=== PATIENT | female | born 1935 | race Caucasian/White ===

== ENCOUNTER 2017-09-27 04:41 | Inpatient (IN) | payer MEDICARE ==
[2017-09-27] MEDS ORDERED: NS 0.9% 1000 ML* 1,000 ML IV ONE (04:50)
[2017-09-27] MEDS ORDERED: Gabapentin CAP(*) 300 MG PO ONE (04:52)
[2017-09-27] MEDS ORDERED: methylPREDNISolone 125 MG* 2 ML VIAL IV ONE (04:52)
[2017-09-27] MEDS ORDERED: Morphine INJ* 4 MG/ML 1 ML CARPUJECT IV ONE (04:52)
[2017-09-27] MEDS ORDERED: Morphine VIAL* 4 MG/ML VIAL (1 ml vial) IV ONE (05:14)
[2017-09-27 05:32] LABS: ABS Basophils 0 10^3/ul (0-0.2); ABS Eosinophils 0.1 10^3/ul (0-0.6); ABS Lymphocytes 2.7 10^3/ul (1.0-4.8); ABS Monocytes 0.9 10^3/ul (0-0.8); ABS Neutrophils 6.6 10^3/ul (1.5-7.7); ABS Nucleated RBC 0 10^3/ul; Eosinophil % 0.9 % (0-6); Hematocrit 41 % (35-47); Hemoglobin 14.6 g/dl (12.0-16.0); Lymphocyte % 26.3 % (25-47); Mean Corpuscular HGB Conc 36 g/dl (31-36); Mean Corpuscular Hemoglobin 36 pg (27-31); Mean Corpuscular Volume 101 fL (80-97); Mean Platelet Volume 8.7 um3 (7.4-10.4); Nucleated Red Blood Cells % 0.1; Platelet Count 224 10^3/ul (150-450); Red Blood Count 4.09 10^6/ul (4.00-5.40); Red Cell Distribution Width 15 % (10.5-15); White Blood Count 10.4 10^3/ul (3.5-10.8)
[2017-09-27] MEDS: Albuterol/Ipratropium NEB.SOL* Albuterol 2.5 MG/Ipratropium 0.5 MG 3 ML INH ONE ×2 (05:35→05:38)
[2017-09-27 05:39] LABS: INR 0.91 (0.77-1.02)
[2017-09-27] MEDS ORDERED: Albuterol/Ipratropium NEB.SOL* Albuterol 2.5 MG/Ipratropium 0.5 MG 3 ML ONE (05:40)
[2017-09-27 05:49] LABS: EGFR Non-African American 67.5 (>60)
[2017-09-27] MEDS ORDERED: Levofloxacin 750 MG IVPREMIX(* 750 MG/150 ML BAG IVPB ONE (06:13)
[2017-09-27] MEDS ORDERED: Iohexol 350* (CONTRAST) 500 ML MDV IV ONE (06:39)
--- NOTE | 2017-09-27 07:28 | ED ---
Benjie Azar Gabriel, scribed for Jose Pierre MD on 09/27/17 at 0515 . Complex/Multi-Sys Presentation - HPI Summary HPI Summary: This patient is a 81 year old F BIBA to [facility] with a chief complaint of whole body pain due to singles that began yesterday. Pt has had shingle since the second week of July, she has a rx for gabapentin but does not use it. The patient rates the pain 9/10 in severity. Patient reports pain with inspiration and SOB. Patient denies fever. Pt is on prednisone and doxycycline. - History Of Current Complaint Chief Complaint: EDShortnessOfBreath Time Seen by Provider: 09/27/17 04:42 Hx Obtained From: Patient Onset/Duration: Lasting Days, Still Present Timing: Constant Severity Currently: Severe Severity Initially: Severe Associated Signs And Symptoms: Positive: Other - whole body pain due to singles that - Allergies/Home Medications Allergies/Adverse Reactions: Allergies Allergy/AdvReac Type Severity Reaction Status Date / Time MS Penicillins [Penicillins] Allergy Hives Verified 08/18/16 12:28 Home Medications: Home Medications Furosemide TAB* [Lasix TAB*] 40 mg PO DAILY 09/27/17 [History Confirmed 09/27/17 ] predniSONE TAB* [Deltasone 10 MG TAB*] 10 mg PO DAILY 09/27/17 [History Confirmed 09/27/17] PMH/Surg Hx/FS Hx/Imm Hx Endocrine/Hematology History: Reports: Hx Thyroid Disease Denies: Hx Diabetes Cardiovascular History: Reports: Hx Aneurysm, Hx Hypercholesterolemia, Hx Hypertension Denies: Hx Congestive Heart Failure - ? 1999 per pt, no edema, denies s/s receiving visipaque, Hx Pacemaker/ICD Respiratory History: Reports: Hx Chronic Obstructive Pulmonary Disease (COPD), Other Respiratory Problems/Disorders - occassional,exertional sob Denies: Hx Asthma GI History: Reports: Other GI Disorders History: Denies: Hx Kidney Stones, Hx Renal Disease Sensory History: Denies: Hx Hearing Aid Psychiatric History: Reports: Hx Anxiety, Hx Panic Disorder - A LITTLE - Surgical History Surgery Procedure, Year, and Place: APPY,HYSTERECTOMY,TUBAL LIGATION, LAP SANDHYA, EYELID PARTIAL REMOVAL,throat benign polyp, aortic aneurysm-CLEARED 1.5 PER [facility] SCANNED INTO OTHER OR PROCEDURES. HEMORROIDECTOMY-BILATERAL CATARACTS Infectious Disease History: No Infectious Disease History: Denies: Traveled Outside the [place] in Last 30 Days - Family History Known Family History: Negative: Cardiac Disease, Hypertension, Diabetes - Social History Alcohol Use: None Substance Use Type: Reports: None Hx Tobacco Use: Yes Smoking Status (MU): Never Smoked Tobacco Review of Systems Positive: Shortness Of Breath, Other - pain with inspiration Neurological: Other - whole body pain due to singles All Other Systems Reviewed And Are Negative: Yes Physical Exam - Summary Physical Exam Summary: Appearance: Well appearing, appears uncomfortable, mild distress Skin: healed but hyper pigmented are in a dermatomal distribution in the left thoracic area and flank, there is a healed zoster in the left thoracic chest Head/face: normal Eyes: EOMI, ANAND ENT: normal Neck: supple, non-tender Respiratory: diminished breath sounds with expiration and expiration, splinting respirations, tachypnea Cardiovascular: RRR, pulses symmetrical Abdomen: non-tender, soft Bowel Sounds: present Musculoskeletal: normal, strength/ROM intact Neuro: normal, sensory motor intact, A&Ox3 Triage Information Reviewed: Yes Vital Signs On Initial Exam: Initial Vitals Temp Pulse Resp BP Pulse Ox 98.3 F 71 22 185/128 96 09/27/17 04:52 09/27/17 04:52 09/27/17 04:52 09/27/17 04:52 09/27/17 04:52 Vital Signs Reviewed: Yes Diagnostics - Vital Signs Vital Signs Temp Pulse Resp BP Pulse Ox 09/27/17 04:52 98.3 F 71 22 185/128 96 - Laboratory Lab Results: Lab Results 09/27/17 09/27/17 09/27/17 Range/Units 05:20 05:20 05:20 WBC 10.4 (3.5-10.8) 10^3/ul RBC 4.09 (4.00-5.40) 10^6/ul Hgb 14.6 (12.0-16.0) g/dl Hct 41 (35-47) % MCV 101 H (80-97) fL MCH 36 H (27-31) pg MCHC 36 (31-36) g/dl RDW 15 (10.5-15) % Plt Count 224 (150-450) 10^3/ul MPV 8.7 (7.4-10.4) um3 Neut % (Auto) 63.6 (38-83) % Lymph % (Auto) 26.3 (25-47) % Stanly % (Auto) 8.8 H (0-7) % Eos % (Auto) 0.9 (0-6) % Baso % (Auto) 0.4 (0-2) % Absolute Neuts (auto) 6.6 (1.5-7.7) 10^3/ul Absolute Lymphs (auto) 2.7 (1.0-4.8) 10^3/ul Absolute Monos (auto) 0.9 H (0-0.8) 10^3/ul Absolute Eos (auto) 0.1 (0-0.6) 10^3/ul Absolute Basos (auto) 0 (0-0.2) 10^3/ul Absolute Nucleated RBC 0 10^3/ul Nucleated RBC % 0.1 INR (Anticoag Therapy) 0.91 (0.77-1.02) D-Dimer, Quantitative 610 H (Less Than 230) ng/mL Sodium 140 (135-145) mmol/L Potassium 3.4 L (3.5-5.0) mmol/L Chloride 101 (101-111) mmol/L Carbon Dioxide 31 (22-32) mmol/L Anion Gap 8 (2-11) mmol/L BUN 17 (6-24) mg/dL Creatinine 0.81 (0.51-0.95) mg/dL Est GFR ( Amer) 86.8 (>60) Est GFR (Non-Af Amer) 67.5 (>60) BUN/Creatinine Ratio 21.0 H (8-20) Glucose 92 (70-100) mg/dL Lactic Acid (0.5-2.0) mmol/L Calcium 9.8 (8.6-10.3) mg/dL Total Bilirubin 0.60 (0.2-1.0) mg/dL AST 15 (13-39) U/L ALT 11 (7-52) U/L Alkaline Phosphatase 54 (34-104) U/L Troponin I 0.00 (<0.04) ng/mL C-Reactive Protein 1.07 (< 5.00) mg/L B-Natriuretic Peptide ( - 100) pg/mL Total Protein 6.8 (6.4-8.9) g/dL Albumin 4.1 (3.2-5.2) g/dL Globulin 2.7 (2-4) g/dL Albumin/Globulin Ratio 1.5 (1-3) 09/27/17 09/27/17 Range/Units 05:20 05:20 WBC (3.5-10.8) 10^3/ul RBC (4.00-5.40) 10^6/ul Hgb (12.0-16.0) g/dl Hct (35-47) % MCV (80-97) fL MCH (27-31) pg MCHC (31-36) g/dl RDW (10.5-15) % Plt Count (150-450) 10^3/ul MPV (7.4-10.4) um3 Neut % (Auto) (38-83) % Lymph % (Auto) (25-47) % Stanly % (Auto) (0-7) % Eos % (Auto) (0-6) % Baso % (Auto) (0-2) % Absolute Neuts (auto) (1.5-7.7) 10^3/ul Absolute Lymphs (auto) (1.0-4.8) 10^3/ul Absolute Monos (auto) (0-0.8) 10^3/ul Absolute Eos (auto) (0-0.6) 10^3/ul Absolute Basos (auto) (0-0.2) 10^3/ul Absolute Nucleated RBC 10^3/ul Nucleated RBC % INR (Anticoag Therapy) (0.77-1.02) D-Dimer, Quantitative (Less Than 230) ng/mL Sodium (135-145) mmol/L Potassium (3.5-5.0) mmol/L Chloride (101-111) mmol/L Carbon Dioxide (22-32) mmol/L Anion Gap (2-11) mmol/L BUN (6-24) mg/dL Creatinine (0.51-0.95) mg/dL Est GFR ( Amer) (>60) Est GFR (Non-Af Amer) (>60) BUN/Creatinine Ratio (8-20) Glucose (70-100) mg/dL Lactic Acid 1.0 (0.5-2.0) mmol/L Calcium (8.6-10.3) mg/dL Total Bilirubin (0.2-1.0) mg/dL AST (13-39) U/L ALT (7-52) U/L Alkaline Phosphatase (34-104) U/L Troponin I (<0.04) ng/mL C-Reactive Protein (< 5.00) mg/L B-Natriuretic Peptide 22 ( - 100) pg/mL Total Protein (6.4-8.9) g/dL Albumin (3.2-5.2) g/dL Globulin (2-4) g/dL Albumin/Globulin Ratio (1-3) Result Diagrams: 09/27/17 05:20 09/27/17 05:20 Lab Statement: Any lab studies that have been ordered have been reviewed, and results considered in the medical decision making process. - Radiology CXR Radiology Interpretation Completed By: ED Physician - Nodule vs infiltrate vs round atelectasis. Pending official report - EKG 0454 Cardiac Rate: NL EKG Rhythm: Sinus Rhythm - at 70 BPM EKG Interpretation: nml axis, nml intervals, nml ST Re-Evaluation - Re-Evaluation First Eval Re-Evaluation Time: 06:15 Change: Improved Comment: Pt is feeling better after neb. Complex Multi-Symp Course/Dx Course Of Treatment: Patient with history of COPD now requiring oxygen. O2 sats 91% on 2 L on arrival. Increased work of breathing. She improved with breathing treatments, steroids and oxygen. X-ray shows atelectasis versus infiltrate. D-dimer is elevated. CT PE protocol is pending at time of disposition. Discussed the case with the hospitalist after the patient was given steroids, breathing treatments and IV Levaquin. They will accept the patient and admit to the telemetry service. - Diagnoses Differential Diagnoses/HQI/PQRI: Other - COPD exacerbation, CHF, cardiac event, pain related to zoster, pneumonia, pneumothorax Provider Diagnoses: COPD exacerbation, Left sided chest pain - Physician Notifications Discussed Care Of Patient With: Wilmar Landry Time Discussed With Above Provider: 06:30 Instructed by Provider To: Admit As Inpatient Discharge - Sign-Out/Discharge Documenting (check all that apply): Discharge/Admit/Transfer - admitted - Discharge Plan Condition: Guarded Disposition: ADMITTED TO [facility] Referrals: hCuy Chappell MD [Primary Care Provider] - - Billing Disposition and Condition Condition: GUARDED Disposition: Admitted to [facility] The documentation as recorded by the Benjie cordero Gabriel accurately reflects the service I personally performed and the decisions made by me, Jose Pierre MD.
--- NOTE | 2017-09-27 08:17 | RAD ---
INDICATION: Chest pain. COMPARISON: Comparison is made with a prior chest x-ray study from December 30, 2015. TECHNIQUE: A portable view of the chest was obtained. FINDINGS: The heart is within normal limits in size. There is a faint round density which projects above the right lung base measuring 1.6 cm in size. The lungs are underinflated otherwise clear. No pleural effusion is seen. IMPRESSION: POSSIBLE PULMONARY NODULE VERSUS INFILTRATE AT THE RIGHT LUNG BASE. RECOMMEND A CT OF THE CHEST. THE PATIENT IS CURRENTLY SCHEDULED FOR CT ANGIOGRAM OF THE CHEST FOR FURTHER EVALUATION.
[2017-09-27] MEDS ORDERED: Potassium Chlor TAB* 20 MEQ TAB.ER PO ONE (08:24)
[2017-09-27] MEDS ORDERED: Albuterol/Ipratropium NEB.SOL* Albuterol 2.5 MG/Ipratropium 0.5 MG 3 ML INH PRN (08:27)
[2017-09-27] MEDS ORDERED: PROCHLORPERAZINE INJ 5 MG/ML 2 ML VIAL IV PRN (08:29)
--- NOTE | 2017-09-27 09:30 | RAD ---
INDICATION: Short of breath. Abdominal pain. COMPARISON: CTA abdomen and pelvis February 15, 2015; MRI lumbar spine August 19, 2016 TECHNIQUE: Axial source images were obtained from the thoracic inlet to the symphysis pubis following the intravenous administration of [address] angiographic technique was utilized Coronal and sagittal reconstructed images were acquired. CHEST FINDINGS: Neck/thyroid: The visualized neck to include the thyroid appear normal. Chest wall: There are no acute abnormalities of the bony thorax or chest wall. There is no supraclavicular, infraclavicular, or axillary lymphadenopathy. Lungs : There are no pulmonary parenchymal masses or infiltrates. There is coarsening of interstitium compatible with mild chronic change. There are no endobronchial lesions. Cardiomediastinal structures: The heart is normal in size. There is no pericardial effusion. There is no evidence of aortic aneurysm or dissection. There is no CT evidence of acute pulmonary embolic disease. There is no mediastinal or hilar adenopathy. The esophagus appears normal. Pleura : There are no pleural-based masses or effusions. ABDOMINAL/PELVIC FINDINGS: Liver: The liver is normal in size. There are no masses. There is no ductal dilatation. Gallbladder: Cholecystectomy. Spleen: The spleen is normal in size. There are no masses. Pancreas: There is no evidence of pancreatic mass or ductal dilatation. Adrenal glands: There is no evidence of adrenal mass. Kidneys: The kidneys are normal in size and position. There are prompt nephrograms and there is prompt excretion bilaterally. There are no renal parenchymal masses. There is no evidence of nephrolithiasis. Adenopathy: There is no evidence of adenopathy by size criteria. Fluid collections: There are no free or localized fluid collections. Vessels:There is an aortobiiliac stent graft. There is no evidence of interval enlargement of the manzanita aneurysm sac which is nearly the size of the stent itself, unchanged. There are no findings to suggest acute dissection, leak, or visceral branch occlusion. There are atherosclerotic changes of the iliac vessels which are tortuous GI tract: There are no acute CT bowel findings. There is no obstruction. The stomach and small bowel appear normal. The lower GI tract is normal. The cecum, ileocecal valve, and terminal ileum appear normal. Pelvic organs: There is hysterectomy. There is no adnexal mass Bladder: There are no bladder masses. Abdominal and pelvic soft tissues: The extraperitoneal abdominal and pelvic soft tissues appear normal.. Osseous structures: There is a 70% compression deformity of T12 mildly progressive from the MRI from August 19, 2016. IMPRESSION: 1. No CT evidence of acute pulmonary embolic disease. Lungs clear. 2. No CT abnormalities of the endovascular stent graft. No acute CT abnormalities of the abdomen or pelvis. 3. Chronic T12 compression deformity
[2017-09-27] MEDS: Furosemide TAB* 40 MG PO SCH (12:01)
[2017-09-27] MEDS: Atorvastatin* 20 MG TAB PO SCH (12:02)
[2017-09-27] MEDS: Gabapentin CAP(*) 300 MG PO SCH ×2 (12:02→20:35)
[2017-09-27] MEDS: Aspirin EC TAB* 325 MG PO SCH (12:02)
--- NOTE | 2017-09-27 12:19 | HP ---
CC: Dr. Chappell * HISTORY AND PHYSICAL: DATE OF ADMISSION: 09/27/17 TIME OF EVALUATION: 8:10 a.m. PRIMARY CARE PROVIDER: Dr. Chappell. CHIEF COMPLAINT: Pain. HISTORY OF PRESENT ILLNESS: Mrs. Saucedo is an 81-year-old lady with a past medical history of hyperlipidemia, hypertension, hypothyroidism, anxiety, COPD, diverticulosis, AAA, status post repair, who presented to the emergency room with complaints that pain from her left shoulder, left side chest, and whole abdomen. The patient is a very poor historian and is difficult to pinpoint exactly when the pain started. She states that in July, she had an episode of shingles. She was prescribed gabapentin but did not use it. She states that the lesions dried up but the pain continues from the left side of her back going around to under her breast and up to her left shoulder. She states that the pain now is 5/10 but this pain mixes with pain in her chest and also pain going down to her whole abdomen. She cannot characterize the nature of the pain and she thinks that the pain in her abdomen is a separate issue from the pain in her chest and shoulder. She denies nausea, vomiting, diarrhea, fever, any change in her cough, and sputum production. She states that the pain including her abdominal pain is worse with deep inspiration, so for this reason the patient states that she is not taking a deep breath. In the emergency room, the patient was noted to have an oxygen saturation of 91 % on 3 L on arrival with increased work of breathing. She received IV steroids , breathing treatments, IV Levaquin and she states her breathing is better but the pain is unchanged. PAST MEDICAL HISTORY: 1. Hyperlipidemia. 2. Hypertension. 3. Hypothyroidism. 4. Anxiety. 5. COPD, on home O2, 2 L at night. 6. Diverticulosis. 7. Status post appendectomy. 8. Status post hysterectomy. 9. Status post cholecystectomy. 10. Status post cataract surgery. 11. Reported surgery for AAA repair at [facility] in 2013. MEDICATION LIST: 1. Aspirin 325 mg p.o. daily. 2. Atorvastatin 10 mg p.o. daily. 3. Furosemide 40 mg p.o. daily. 4. Prednisone 10 mg p.o. daily. ALLERGIES: With PENICILLIN. She patient experiences hives. FAMILY HISTORY: Father had a history of COPD. SOCIAL HISTORY: The patient is a smoker since she was 10 years old. She occasionally has a glass of wine. Surrogate decision maker is her daughter, Jasmyne Hartman, phone number is [phone]. REVIEW OF SYSTEMS: A 14-point review of systems was performed but is limited due to the patient is being a poor historian but as far as I can obtain, all the positives and negatives present in the HPI. PHYSICAL EXAMINATION GENERAL: Patient is an elderly lady, lying in the ED stretcher. She appears to be uncomfortable secondary to pain. VITAL SIGNS: Temperature 98.3, heart rate is 72, respiratory rate is 27, oxygen saturation is 90% on 2 L, blood pressure is 146/70. HEENT: Pupils are equal. Moist mucous membranes. CHEST: Breath sounds bilaterally with no added sounds. The patient has a healing rash under her left breast stretching all the way across to her left back. There are no active lesions at this time, mostly just scars from her episode of zoster in July. CVS: Normal S1, S2. Regular rate and rhythm. ABDOMEN: Obese, soft with hypogastric and right lower quadrant tenderness but no guarding, no rebound. Bowel sounds are present. EXTREMITIES: No edema. NEUROLOGIC: She is alert and oriented x3. Able to move all 4 extremities. LABORATORY AND IMAGING DATA: Patient had a CBC that showed WBC of 10.4, hemoglobin 14.6, hematocrit 41, MCV 101, MCH 36, platelets 224 with 63% neutrophils. INR 0.9. D-dimer 610. Chemistry showed sodium 140, potassium 3.4 , chloride 101, bicarbonate 31, BUN 17, creatinine 0.81, glucose 92, lactic acid 1, calcium 9.8. LFTs are normal. Troponin is 0. Chest x-ray was not officially read yet but to my read it shows no acute pulmonary disease. I do not see any free air under the diaphragm. She had a right lower lobe nodule that I think was present on her prior chest x-ray from 2016 but it is hard to define because she had wires overlying it. CTA of the chest was performed but the images are not yet loaded in this system. EKG done on 09/27/17 at 4:54 a.m. showed sinus rhythm at 70 beats per minute with no significant changes when compared to her prior EKG from 2016. ASSESSMENT AND PLAN: Mrs. Saucedo is an 81-year-old lady with past medical history of hyperlipidemia, hypertension, hypothyroidism, anxiety, chronic obstructive pulmonary disease, diverticulosis, status post abdominal aortic aneurysm repair, who presented to the emergency room with complaints of chest, shoulder, and diffuse abdominal pain. 1. Chest pain, rule out acute coronary syndrome, likely secondary to zoster. 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 The patient received gabapentin in the emergency room and she states that her chest pain is not bad at this time. She will be admitted to the telemetry floor and we are going to continue gabapentin to try and obtain pain control. On the other hand, the patient is a smoker, has history of peripheral vascular disease. The EKG showed no acute ischemic changes. Her first troponin is negative. She will be monitored on telemetry and we are going to check serial troponins. If she rules out acute coronary syndrome, consideration could be given for stress test as outpatient. I am going to check a transthoracic echocardiogram to look for any wall motion abnormalities. 2. Abdominal pain, that appears to be her major complaint at this time. She has hypogastric and right lower quadrant pain on my physical examination. She has a history of cholecystectomy and appendectomy already. I am going to chest an abdomen x-ray, but her chest x-ray did not show any free air under the diaphragm. The patient will also have a CTA of the abdomen and pelvis consider her history of abdominal aortic aneurysm, status post repair in 2013 and we are going to obtain records from [facility]. She denies any nausea, vomiting, or diarrhea. We are going to check urinalysis. Although she denies urinary complaints, she does have some hypogastric tenderness. Straight catheterization was ordered to obtain the urine sample. She will be maintained on pain management with morphine at this point. 3. Chronic obstructive pulmonary disease exacerbation. I believe the patient cannot take a deep breath due to her abdominal pain. Initially, in the emergency room, she had some wheezing and she states that her breathing is easier now after receiving treatment. We will continue her on levofloxacin, steroids, bronchodilators, and supplemental oxygen. 4. Hyperlipidemia. We will continue atorvastatin 5. Hypothyroidism. The patient is not on any medication at this time. I am going to check TSH level. 6. DVT prophylaxis. The patient has a score of 3 on the DVT Prophylaxis Risk Assessment Guide and she will be started on subcutaneous heparin. 7. Prior records show that the patient had a do not resuscitate and do not intubate in place. She states that she is not sure at this time. We will continue conservations, but at this point, the patient is a full code. TIME SPENT: Approximately 55 minutes were spent with patient interview, medical records review, physical examination to complete this admission; more than half of this time was spent [id number] with the patient in coordination of care. [id number]/[facility] #: [id number] JHONNY
[2017-09-27] MEDS: Heparin VIAL(*) 5000 UNITS/ML VIAL (FIVE THOUSAND) SUBCUT SCH ×2 (14:50→20:35)
[2017-09-27 16:25] LABS: Urine Appearance Clear; Urine Blood Negative (Negative); Urine Color Colorless; Urine Ketones Negative (Negative); Urine Protein Negative (Negative); Urine Urobilinogen Negative (Negative)
[2017-09-27] MEDS: methylPREDNISolone SOD 40 MG* 1 ML VIAL IV SCH (17:20)
[2017-09-27] MEDS ORDERED: Sodium Phosphate ADULT ENEMA* 118 ml bottle PR PRN (17:35)
[2017-09-27] MEDS: Morphine VIAL* 4 MG/ML VIAL (1 ml vial) IV PRN (20:34)
[2017-09-27] MEDS: Polyethylene Glycol 3350* 17 GM PACKET PO SCH (20:35)
[2017-09-27] MEDS: Docusate CAP* 100 MG PO SCH (20:35)
[2017-09-28] MEDS: Heparin VIAL(*) 5000 UNITS/ML VIAL (FIVE THOUSAND) SUBCUT SCH ×3 (05:24→21:23)
[2017-09-28 06:10] LABS: ABS Basophils 0 10^3/ul (0-0.2); ABS Eosinophils 0 10^3/ul (0-0.6); ABS Lymphocytes 1.3 10^3/ul (1.0-4.8); ABS Monocytes 0.4 10^3/ul (0-0.8); ABS Neutrophils 4.5 10^3/ul (1.5-7.7); ABS Nucleated RBC 0 10^3/ul; Eosinophil % 0 % (0-6); Hematocrit 40 % (35-47); Hemoglobin 14.2 g/dl (12.0-16.0); Lymphocyte % 20.7 % (25-47); Mean Corpuscular HGB Conc 35 g/dl (31-36); Mean Corpuscular Hemoglobin 36 pg (27-31); Mean Corpuscular Volume 101 fL (80-97); Mean Platelet Volume 8.6 um3 (7.4-10.4); Nucleated Red Blood Cells % 0; Platelet Count 223 10^3/ul (150-450); Red Blood Count 3.99 10^6/ul (4.00-5.40); Red Cell Distribution Width 15 % (10.5-15); White Blood Count 6.2 10^3/ul (3.5-10.8)
[2017-09-28 06:31] LABS: EGFR Non-African American 64.8 (>60)
[2017-09-28] MEDS ORDERED: Pneumococcal *Vac Polyvalent 0.5 ML VIAL IM ONE (09:00)
[2017-09-28] MEDS ORDERED: Levofloxacin 750 MG IVPREMIX(* 750 MG/150 ML BAG IVPB SCH (09:00)
[2017-09-28] MEDS: Docusate CAP* 100 MG PO SCH ×2 (09:24→21:17)
[2017-09-28] MEDS: Atorvastatin* 20 MG TAB PO SCH (09:24)
[2017-09-28] MEDS: Gabapentin CAP(*) 100 MG PO SCH ×2 (09:24→21:17)
[2017-09-28] MEDS: Furosemide TAB* 40 MG PO SCH (09:24)
[2017-09-28] MEDS: Aspirin EC TAB* 325 MG PO SCH (09:24)
[2017-09-28] MEDS: Polyethylene Glycol 3350* 17 GM PACKET PO SCH ×2 (09:25→21:16)
[2017-09-28] MEDS: methylPREDNISolone SOD 40 MG* 1 ML VIAL IV SCH ×2 (09:31→17:38)
[2017-09-28] MEDS: Levofloxacin 250 MG IVPREMX(*) 250 MG/50 ML BAG IVPB SCH (09:31)
[2017-09-28] MEDS: Magnesium Hydroxide LIQ* 30 ML UDC PO PRN ×2 (09:40→21:16)
--- NOTE | 2017-09-28 13:59 | PN ---
Subjective Date of Service: 09/28/17 Interval History: HOSPITALIST PROGRESS NOTE Patient seen and examined at bedside. Care reviewed and d/w Michelle Velásquez RN. She feels miserable. States her belly is "full" and she cannot breathe. Hurts all over, could not sleep last night. Last BM was >10 days ago because her son was visiting. She took a laxative prior to his visit and states her BM was very hard, pellet-like, and she did not want to take any laxative until he left. Declining enema now because she's "embarrassed I'll poop my pants". Family History: Unchanged from Admission Social History: Unchanged from Admission Past Medical History: Unchanged from Admission Objective Active Medications: Acetaminophen (Tylenol Tab*) 650 mg PO Q6H PRN PRN Reason: pain/fever Albuterol/Ipratropium (Duoneb (Albuterol 2.5 Mg/Ipratropium 0.5 Mg)) 1 neb INH Q4H PRN PRN Reason: SOB/WHEEZING Last Admin: 09/27/17 20:44 Dose: 1 neb Aspirin (Ecotrin Ec Tab*) 325 mg PO DAILY [facility] Last Admin: 09/28/17 09:24 Dose: 325 mg Atorvastatin Calcium (Lipitor*) 20 mg PO DAILY [facility] Last Admin: 09/28/17 09:24 Dose: 20 mg Docusate Sodium (Colace Cap*) 100 mg PO BID [facility] Last Admin: 09/28/17 09:24 Dose: 100 mg Furosemide (Lasix Tab*) 40 mg PO DAILY [facility] Last Admin: 09/28/17 09:24 Dose: 40 mg Gabapentin (Neurontin Cap(*)) 100 mg PO BID [facility] Last Admin: 09/28/17 09:24 Dose: 100 mg Heparin Sodium (Porcine) (Heparin Vial(*)) 5,000 units SUBCUT Q8HR [facility] Last Admin: 09/28/17 05:24 Dose: 5,000 units Levofloxacin/Dextrose (Levaquin 250 Mg Ivpremx(*)) 250 mg in 50 mls @ 50 mls/ hr IVPB Q24H [facility] Last Admin: 09/28/17 09:31 Dose: 50 mls/hr Magnesium Hydroxide (Milk Of Magnesia Liq*) 30 ml PO BID PRN PRN Reason: CONSTIPATION Last Admin: 09/28/17 09:40 Dose: 30 ml Methylprednisolone Sodium Succinate (Solu-Medrol 40 Mg) 40 mg IV BID@0900,1700 [facility] Last Admin: 09/28/17 09:31 Dose: 40 mg Morphine Sulfate (Morphine Vial*) 4 mg IV Q3H PRN PRN Reason: SEVERE PAIN Polyethylene Glycol/Electrolytes (Miralax*) 17 gm PO 0800,2100 [facility] Last Admin: 09/28/17 09:25 Dose: 17 gm Prochlorperazine Edisylate (Compazine Inj*) 5 mg IV Q6H PRN PRN Reason: NAUSEA/VOMITING Sodium Biphosphate/Sodium Phosphate (Fleet Enema*) 1 bottle [place] DAILY PRN PRN Reason: CONSTIPATION Vital Signs - 8 hr 09/28/17 09/28/17 09/28/17 07:34 08:00 09:24 Temperature 97.9 F Pulse Rate 58 Respiratory 16 20 20 Rate Blood Pressure 130/60 (mmHg) O2 Sat by Pulse 90 Oximetry 09/28/17 09/28/17 09/28/17 11:25 11:30 11:45 Temperature 98.0 F Pulse Rate 82 Respiratory 20 18 Rate Blood Pressure 180/79 148/62 (mmHg) O2 Sat by Pulse 89 90 Oximetry Oxygen Devices in Use Now: Nasal Cannula Appearance: Elderly lady sitting up in a chair in moderate distress secondary to pain. Eyes: No Scleral Icterus Ears/Nose/Mouth/Throat: Mucous Membranes Moist Neck: Trachea Midline Respiratory: Symmetrical Chest Expansion and Respiratory Effort, - - BS+ bilaterally diminished, scattered wheezes Cardiovascular: RRR - Normal S1 and S2 Abdominal: - - Soft, mild diffuse tenderness, mild distention, BS+ Neurological: Alert and Oriented x 3, NL Muscle Strength and Tone Result Diagrams: 09/28/17 05:57 09/28/17 05:57 Assess/Plan/Problems-Billing Assessment: Mrs Saucedo is an 81yo F with PMH of HLD, HTN, hypothyroidism, anxiety, COPD on home O2 at night, AAA s/p repair, herpes zoster, diverticulosis, s/p cholecystectomy and appendectomy, who presented to ED with c/o chest, back, and abdominal pain, found to have severe constipation. - Patient Problems (1) Chest pain Comment: - Has post herpetic pain - continue Gabapentin. - Serial troponins were negative and EKG showed no acute ischemic changes. - CTA negative for PE/aortic aneurysm/dissection. - Continue Aspirin and Atorvastatin. Beta-blockers contraindicated due to her severe COPD. - May benefit of stress test when more stable, probably as outpatient. (2) V-tach Comment: - Patient had 10 beats of Vtach, asymptomatic, while sleeping. - Replete potassium and check magnesium. - Would avoid beta-blockers due to her COPD. - Check echo. - Continue to monitor. (3) Abdominal pain Comment: - CTA was negative for dissection, no acute abnormalities of the abd/ pelvis were seen. - Suspect her pain is secondary to constipation. Her last BM was >10 days ago and described as hard pellets. Her son was visiting and she did not want to have a BM with him in the house. On a laxative regimen now, declining enemas. She understands she probably has hard stool in her rectum and may require enemas or even manual disimpaction, but she wants to wait a little longer to see if laxatives will work. (4) COPD exacerbation Comment: - Her abdominal discomfort also limits her inspiratory effort. - Continue steroids, bronchodilators, and Levofloxacin. (5) AAA (abdominal aortic aneurysm) Comment: - Records from [facility] reviewed - patient had an infrarenal AAA measuring 6.2cm and underwent endovascular (endograft) repair with a modular bifurcated prosthesis in 2014. (6) HLD (hyperlipidemia) Comment: - Continue Atorvastatin. (7) DVT prophylaxis Comment: - SQ heparin. (8) Full code status Status and Disposition: Inpatient. Daughter (Jada Hartman) called and I left a message requesting a call back.
[2017-09-28] MEDS: Morphine VIAL* 4 MG/ML VIAL (1 ml vial) IV PRN ×2 (14:19→22:53)
--- NOTE | 2017-09-28 17:03 | ECHO ---
Patient: JOHNATHON GUARDADO [facility] Rec#: [id number] : 1935 Date: 09/28/2017 Age: 81y Height: 142.2 cm / 56.0 in Weight: 67.1 kg / 147.9 lbs Sex: F BSA: 1.6 Room#: [facility] Admit Date#: 09/27/2017 Type: Inpatient Referring: Meenakshi Fernandez MD Reading: Ankit Borrero MD Radio Electronics Officer: Daija Perdomo RN RDCS CC: Chuy Chappell MD Transthoracic Echocardiogram Indication: Chest pain, V. tach BP: 148/62 HR: 72 Rhythm: NSR Findings History: HTN, HLD, hypothyroidism, COPD, smoker, AAA repair, recent herpes zoster Technical Comments: The study is technically limited due to poor parasternal windows. The study is technically limited due to patient body habitus. The study is technically limited due to the patient's history of COPD. The study is technically limited due to the patient's smoking history. Completed at 1630. Left Ventricle: The left ventricular chamber size is normal. Mild concentric left ventricular hypertrophy is observed. Global left ventricular wall motion and contractility are within normal limits. The left ventricle appears hyperdynamic. The estimated ejection fraction is greater than 65%. There is an E to A reversal in the mitral valve flow pattern suggestive of diastolic dysfunction. Left Atrium: The left atrial chamber size is normal. Right Ventricle: The right ventricle wall thickness is moderately increased. The right ventricular cavity size is normal. The right ventricular global systolic function is normal. Right Atrium: The right atrial cavity size is normal. Aortic Valve: The aortic valve structure is not well visualized. The aortic valve leaflets are mildly thickened. There is a trace of aortic regurgitation. There is no evidence of aortic stenosis. Mitral Valve: The mitral valve leaflets are mildly thickened. There is no evidence of mitral regurgitation. There is no evidence of mitral stenosis. Tricuspid Valve: The tricuspid valve structure is not well visualized. There is trace tricuspid regurgitation. Unable to estimate the right ventricular systolic pressure. There is no tricuspid stenosis. Pulmonic Valve: The pulmonic valve structure is not well visualized. Pericardium: There is no significant pericardial effusion. A pericardial fat pad is visualized. Aorta: The ascending aorta is not well visualized. The aortic arch is not well visualized. There is no dilation of the aortic root. Pulmonary Artery: The main pulmonary artery is not well visualized. Venous: The inferior vena cava appears normal in size. There is a greater than 50% respiratory change in the inferior vena cava dimension. Conclusions The study is technically limited due to poor parasternal windows, patient body habitus, and dur to the patient's history of COPD. Limited comments with reliable accuracy can be made. Mild concentric left ventricular hypertrophy is observed. Global left ventricular wall motion and contractility are within normal limits. The left ventricle appears hyperdynamic. The estimated ejection fraction is greater than 65%. From limited available views, there is no significant valvular disease: There is trace tricuspid regurgitation. There is a trace of aortic regurgitation. No reports of prior studies are offered for comparison. Measurements Name Value Normal Range RVDdMajor (2D) 3.1 cm (2.2 - 4.4) RVAW (2D) 1.2 cm (0.2 - 0.5) RAd ISD 4CH 4.1 cm (3.4 - 4.9) RA (A4C)W 3.7 cm (2.9 - 4.6) IVSd (2D) 1.2 cm (0.6 - 1) LVPWd (2D) 1.1 cm (0.6 - 1) LVIDd (2D) 4 cm (3.6 - 5.4) Aortic Annulus 2.1 cm (1.4 - 2.6) Ao root diameter (2D) 2.8 cm (2.1 - 3.5) LAd ISD 4CH 4.5 cm (2.9 - 5.3) LA ISD 4CH W 3.2 cm (2.5 - 4.5) Name Value Normal Range LA ESV SP 4CH (A/L) 30 ml - LA ESV SP 2CH (A/L) 48 ml - LA ESV BP (A/L) 40 ml - LA ESV BP (A/L) index 25.7 ml/m2 - LA ESV SP 4CH (MOD) 29 ml - LA ESV SP 2CH (MOD) 45 ml - Name Value Normal Range MV E-wave Vmax 0.72 m/sec - MV deceleration time 349 msec - MV A-wave Vmax 0.99 m/sec - MV E:A ratio 0.73 ratio - LV septal e' Vmax 0.07 m/sec - LV lateral e' Vmax 0.06 m/sec - LV E:e' septal ratio 10.3 ratio - LV E:e' lateral ratio 12 ratio - Name Value Normal Range AV Vmax 1.9 m/sec - AV VTI 35.5 cm - AV peak gradient 14.8 mmHg - AV mean gradient 8 mmHg - LVOT Vmax 1.3 m/sec - LVOT VTI 26.3 cm - LVOT peak gradient 6.5 mmHg - LVOT mean gradient 3.5 mmHg - Name Value Normal Range IVC diameter 1.8 cm - Name Value Normal Range PV Vmax 0.77 m/sec -
[2017-09-28] MEDS ORDERED: Magnesium CITRATE* 300 ML BTL PO PRN (17:05)
[2017-09-29] MEDS ORDERED: HYDROmorphone INJ* 2 MG/ML CARPUJECT SYRINGE IV SLOW PU ONE ×2 (03:42)
[2017-09-29] MEDS ORDERED: Melatonin 3 MG TAB PO PRN (03:43)
[2017-09-29] MEDS: Heparin VIAL(*) 5000 UNITS/ML VIAL (FIVE THOUSAND) SUBCUT SCH ×3 (05:29→20:23)
[2017-09-29] MEDS: Acetaminophen TAB* 325 MG PO PRN ×2 (05:29→22:30)
[2017-09-29] MEDS: Polyethylene Glycol 3350* 17 GM PACKET PO SCH ×2 (09:42→20:22)
[2017-09-29] MEDS: Levofloxacin 250 MG IVPREMX(*) 250 MG/50 ML BAG IVPB SCH (09:43)
[2017-09-29] MEDS: Aspirin EC TAB* 325 MG PO SCH (09:43)
[2017-09-29] MEDS: Docusate CAP* 100 MG PO SCH ×2 (09:43→20:24)
[2017-09-29] MEDS: Atorvastatin* 20 MG TAB PO SCH (09:43)
[2017-09-29] MEDS: Gabapentin CAP(*) 100 MG PO SCH ×2 (09:43→20:24)
[2017-09-29] MEDS: Furosemide TAB* 40 MG PO SCH ×2 (09:44→09:54)
[2017-09-29] MEDS: methylPREDNISolone SOD 40 MG* 1 ML VIAL IV SCH ×2 (09:47→17:22)
[2017-09-29] MEDS: Morphine VIAL* 4 MG/ML VIAL (1 ml vial) IV PRN ×2 (14:51→21:59)
--- NOTE | 2017-09-29 14:51 | PN ---
Subjective Date of Service: 09/29/17 Interval History: HOSPITALIST PROGRESS NOTE Patient seen and examined at bedside. Care reviewed and d/w Dhara Qiu RN. She feels better today. Had many BMs overnight and abdominal pain is improved. Issue now is her breathing. Still has some dyspnea, not yet back at baseline. Family History: Unchanged from Admission Social History: Unchanged from Admission Past Medical History: Unchanged from Admission Objective Active Medications: Acetaminophen (Tylenol Tab*) 650 mg PO Q6H PRN PRN Reason: pain/fever Last Admin: 09/29/17 05:29 Dose: 650 mg Albuterol/Ipratropium (Duoneb (Albuterol 2.5 Mg/Ipratropium 0.5 Mg)) 1 neb INH Q4H PRN PRN Reason: SOB/WHEEZING Last Admin: 09/27/17 20:44 Dose: 1 neb Aspirin (Ecotrin Ec Tab*) 325 mg PO DAILY [facility] Last Admin: 09/29/17 09:43 Dose: 325 mg Atorvastatin Calcium (Lipitor*) 20 mg PO DAILY [facility] Last Admin: 09/29/17 09:43 Dose: 20 mg Docusate Sodium (Colace Cap*) 100 mg PO BID [facility] Last Admin: 09/29/17 09:43 Dose: Not Given Furosemide (Lasix Tab*) 40 mg PO DAILY [facility] Last Admin: 09/29/17 09:54 Dose: 40 mg Gabapentin (Neurontin Cap(*)) 100 mg PO BID [facility] Last Admin: 09/29/17 09:43 Dose: 100 mg Heparin Sodium (Porcine) (Heparin Vial(*)) 5,000 units SUBCUT Q8HR [facility] Last Admin: 09/29/17 14:20 Dose: 5,000 units Levofloxacin/Dextrose (Levaquin 250 Mg Ivpremx(*)) 250 mg in 50 mls @ 50 mls/ hr IVPB Q24H [facility] Last Admin: 09/29/17 09:43 Dose: 50 mls/hr Magnesium Citrate (Citrate Of Magnesia*) 150 ml PO ONCE PRN PRN Reason: CONSTIPATION Last Admin: 09/28/17 17:57 Dose: 150 ml Magnesium Hydroxide (Milk Of Magnesia Liq*) 30 ml PO BID PRN PRN Reason: CONSTIPATION Last Admin: 09/28/17 21:16 Dose: 30 ml Melatonin (Melatonin) 3 mg PO BEDTIME PRN PRN Reason: SLEEP Methylprednisolone Sodium Succinate (Solu-Medrol 40 Mg) 40 mg IV BID@0900,1700 [facility] Last Admin: 09/29/17 09:47 Dose: 40 mg Morphine Sulfate (Morphine Vial*) 4 mg IV Q3H PRN PRN Reason: SEVERE PAIN Last Admin: 09/28/17 22:53 Dose: 4 mg Polyethylene Glycol/Electrolytes (Miralax*) 17 gm PO 0800,2100 [facility] Last Admin: 09/29/17 09:42 Dose: Not Given Prochlorperazine Edisylate (Compazine Inj*) 5 mg IV Q6H PRN PRN Reason: NAUSEA/VOMITING Sodium Biphosphate/Sodium Phosphate (Fleet Enema*) 1 bottle [place] DAILY PRN PRN Reason: CONSTIPATION Last Admin: 09/28/17 14:20 Dose: 1 bottle Vital Signs - 8 hr 09/29/17 09/29/17 09/29/17 07:28 08:00 09:43 Temperature 98.1 F Pulse Rate 60 Respiratory 18 17 17 Rate Blood Pressure 136/72 (mmHg) O2 Sat by Pulse 93 Oximetry 09/29/17 09/29/17 09/29/17 10:46 11:37 11:40 Temperature 98.5 F Pulse Rate 73 Respiratory 20 16 Rate Blood Pressure 156/70 (mmHg) O2 Sat by Pulse 87 88 Oximetry Oxygen Devices in Use Now: Nasal Cannula Appearance: Elderly lady sitting up in a chair in [facility]. Eyes: No Scleral Icterus Ears/Nose/Mouth/Throat: Mucous Membranes Moist Neck: Trachea Midline Respiratory: Symmetrical Chest Expansion and Respiratory Effort, - - BS+ bilaterally diminished with scattered wheeze Cardiovascular: RRR - Normal S1 and S2 Abdominal: NL Sounds; No Tenderness; No Distention Neurological: Alert and Oriented x 3, NL Muscle Strength and Tone Result Diagrams: 09/28/17 05:57 09/28/17 05:57 Assess/Plan/Problems-Billing Assessment: Mrs Saucedo is an 81yo F with PMH of HLD, HTN, hypothyroidism, anxiety, COPD on home O2 at night, AAA s/p repair, herpes zoster, diverticulosis, s/p cholecystectomy and appendectomy, who presented to ED with c/o chest, back, and abdominal pain, found to have severe constipation. - Patient Problems (1) Chest pain Comment: - Has post herpetic pain - continue Gabapentin. - Serial troponins were negative and EKG showed no acute ischemic changes. - CTA negative for PE/aortic aneurysm/dissection. - Continue Aspirin and Atorvastatin. Beta-blockers contraindicated due to her severe COPD. - May benefit of stress test when more stable, probably as outpatient. (2) V-tach Comment: - Patient had 10 beats of Vtach, asymptomatic, while sleeping. - Replete potassium. Magnesium is within normal limits. - Would avoid beta-blockers due to her COPD. - Echo showed EF>65%, with no reported wall motion abnormalities or significant valvular disease. - Continue to monitor. (3) Abdominal pain Comment: - CTA was negative for dissection, no acute abnormalities of the abd/ pelvis were seen. - Suspect her pain is secondary to constipation. Her last BM was >10 days ago and described as hard pellets. Her son was visiting and she did not want to have a BM with him in the house. - Much improved after multiple BMs. - Continue bowel regimen. (4) COPD exacerbation Comment: - Her abdominal discomfort also limits her inspiratory effort. - Continue steroids, bronchodilators, and Levofloxacin. (5) AAA (abdominal aortic aneurysm) Comment: - Records from [facility] reviewed - patient had an infrarenal AAA measuring 6.2cm and underwent endovascular (endograft) repair with a modular bifurcated prosthesis in 2014. (6) HLD (hyperlipidemia) Comment: - Continue Atorvastatin. (7) DVT prophylaxis Comment: - SQ heparin. (8) Full code status Status and Disposition: Inpatient. Daughter (Jada Hartman) updated about condition yesterday. Anticipate d/c in AM if COPD compensated.
[2017-09-30] MEDS: Heparin VIAL(*) 5000 UNITS/ML VIAL (FIVE THOUSAND) SUBCUT SCH ×3 (05:05→20:19)
[2017-09-30 07:04] LABS: EGFR Non-African American 64.8 (>60)
[2017-09-30] MEDS: Furosemide TAB* 40 MG PO SCH (08:11)
[2017-09-30] MEDS: Levofloxacin 250 MG IVPREMX(*) 250 MG/50 ML BAG IVPB SCH (08:11)
[2017-09-30] MEDS: Aspirin EC TAB* 325 MG PO SCH (08:11)
[2017-09-30] MEDS: Docusate CAP* 100 MG PO SCH ×2 (08:11→20:18)
[2017-09-30] MEDS: Polyethylene Glycol 3350* 17 GM PACKET PO SCH ×4 (08:11→22:20)
[2017-09-30] MEDS: Atorvastatin* 20 MG TAB PO SCH (08:11)
[2017-09-30] MEDS: Gabapentin CAP(*) 100 MG PO SCH ×2 (08:11→20:18)
[2017-09-30] MEDS: methylPREDNISolone SOD 40 MG* 1 ML VIAL IV SCH (08:40)
--- NOTE | 2017-09-30 14:43 | PN ---
Subjective Date of Service: 09/30/17 Interval History: HOSPITALIST PROGRESS NOTE Patient seen and examined at bedside. Care reviewed and d/w Deysi Sadler RN. She does not feel well today. States she continues to have liquid bowel movements, but her pain is still severe, especially in the epigastric area, radiating to her back. She tells me when she takes laxatives at home she feels "a das ball" is moving through her belly and this time this did not happen. No nausea, vomiting, but appetite is preserved and she refuses to be NPO. Breathing is unchanged, but abdominal pain precludes deep inspiration. Family History: Unchanged from Admission Social History: Unchanged from Admission Past Medical History: Unchanged from Admission Objective Active Medications: Acetaminophen (Tylenol Tab*) 650 mg PO Q6H PRN PRN Reason: pain/fever Last Admin: 09/29/17 22:30 Dose: 650 mg Albuterol/Ipratropium (Duoneb (Albuterol 2.5 Mg/Ipratropium 0.5 Mg)) 1 neb INH Q4H PRN PRN Reason: SOB/WHEEZING Last Admin: 09/27/17 20:44 Dose: 1 neb Aspirin (Ecotrin Ec Tab*) 325 mg PO DAILY [facility] Last Admin: 09/30/17 08:11 Dose: 325 mg Atorvastatin Calcium (Lipitor*) 20 mg PO DAILY [facility] Last Admin: 09/30/17 08:11 Dose: 20 mg Docusate Sodium (Colace Cap*) 100 mg PO BID [facility] Last Admin: 09/30/17 08:11 Dose: 100 mg Furosemide (Lasix Tab*) 40 mg PO DAILY [facility] Last Admin: 09/30/17 08:11 Dose: 40 mg Gabapentin (Neurontin Cap(*)) 100 mg PO BID [facility] Last Admin: 09/30/17 08:11 Dose: 100 mg Heparin Sodium (Porcine) (Heparin Vial(*)) 5,000 units SUBCUT Q8HR [facility] Last Admin: 09/30/17 13:28 Dose: 5,000 units Levofloxacin/Dextrose (Levaquin 250 Mg Ivpremx(*)) 250 mg in 50 mls @ 50 mls/ hr IVPB Q24H [facility] Last Admin: 09/30/17 08:11 Dose: 50 mls/hr Magnesium Hydroxide (Milk Of Magnesia Liq*) 30 ml PO BID PRN PRN Reason: CONSTIPATION Last Admin: 09/28/17 21:16 Dose: 30 ml Melatonin (Melatonin) 3 mg PO BEDTIME PRN PRN Reason: SLEEP Methylprednisolone Sodium Succinate (Solu-Medrol 40 Mg) 40 mg IV DAILY [facility] Morphine Sulfate (Morphine Vial*) 4 mg IV Q3H PRN PRN Reason: SEVERE PAIN Last Admin: 09/29/17 21:59 Dose: 4 mg Polyethylene Glycol/Electrolytes (Miralax*) 17 gm PO 0800,2100 [facility] Last Admin: 09/30/17 08:11 Dose: 17 gm Prochlorperazine Edisylate (Compazine Inj*) 5 mg IV Q6H PRN PRN Reason: NAUSEA/VOMITING Sodium Biphosphate/Sodium Phosphate (Fleet Enema*) 1 bottle [place] DAILY PRN PRN Reason: CONSTIPATION Last Admin: 09/28/17 14:20 Dose: 1 bottle Vital Signs - 8 hr 09/30/17 09/30/17 09/30/17 07:29 08:00 08:11 Temperature 97.9 F Pulse Rate 65 Respiratory 24 24 24 Rate Blood Pressure 147/107 (mmHg) O2 Sat by Pulse 89 Oximetry 09/30/17 11:12 Temperature 98.7 F Pulse Rate 77 Respiratory 22 Rate Blood Pressure 159/81 (mmHg) O2 Sat by Pulse 92 Oximetry Oxygen Devices in Use Now: OxyMask - 5 liters Appearance: Elderly lady sitting up in a chair, appears uncomfortable, but is not in distress. Eyes: No Scleral Icterus Ears/Nose/Mouth/Throat: Mucous Membranes Moist Neck: Trachea Midline Respiratory: Symmetrical Chest Expansion and Respiratory Effort, - - BS+ bilaterally diminished, scattered wheeze Cardiovascular: RRR - Normal S1 and S2 Abdominal: - - Obese, soft, epigastric tenderness, NG, NR, BS+ Neurological: Alert and Oriented x 3, NL Muscle Strength and Tone Result Diagrams: 09/28/17 05:57 09/30/17 06:19 Assess/Plan/Problems-Billing Assessment: Mrs Saucedo is an 81yo F with PMH of HLD, HTN, hypothyroidism, anxiety, COPD on home O2 at night, AAA s/p repair, herpes zoster, diverticulosis, s/p cholecystectomy and appendectomy, who presented to ED with c/o chest, back, and abdominal pain, found to have severe constipation. - Patient Problems (1) Abdominal pain Comment: - CTA was negative for dissection, no acute abnormalities of the abd/ pelvis were seen. - Suspected her pain is secondary to constipation. Her last BM had been >10 days prior to admission and described as hard pellets. Her son was visiting and she did not want to have a BM with him in the house. - Much improved after multiple BMs yesterday, but worse again today. Denies N/V , appetite is preserved and she does not wish to be NPO - GI consult requested. - Continue bowel regimen. (2) Chest pain Comment: - Has post herpetic pain - continue Gabapentin. - Serial troponins were negative and EKG showed no acute ischemic changes. - CTA negative for PE/aortic aneurysm/dissection. - Continue Aspirin and Atorvastatin. Beta-blockers contraindicated due to her severe COPD. - May benefit of stress test when more stable, probably as outpatient. (3) V-tach Comment: - Patient had 10 beats of Vtach, asymptomatic, while sleeping. - Continue to replete potassium - goal >4. Magnesium is within normal limits. - Would avoid beta-blockers due to her COPD. - Echo showed EF>65%, with no reported wall motion abnormalities or significant valvular disease. - Continue to monitor. (4) COPD exacerbation Comment: - Her abdominal discomfort also limits her inspiratory effort. - Continue steroids, bronchodilators, and Levofloxacin. (5) AAA (abdominal aortic aneurysm) Comment: - Records from [facility] reviewed - patient had an infrarenal AAA measuring 6.2cm and underwent endovascular (endograft) repair with a modular bifurcated prosthesis in 2014. (6) HLD (hyperlipidemia) Comment: - Continue Atorvastatin. (7) DVT prophylaxis Comment: - SQ heparin. (8) Full code status Status and Disposition: Inpatient.
[2017-09-30] MEDS: Morphine VIAL* 4 MG/ML VIAL (1 ml vial) IV PRN ×2 (15:00→21:22)
[2017-09-30] MEDS ORDERED: HYDROmorphone INJ* 2 MG/ML CARPUJECT SYRINGE IV SLOW PU ONE (16:41)
[2017-09-30] MEDS: Potassium Chlor TAB* 20 MEQ TAB.ER PO SCH (20:18)
[2017-09-30] MEDS: Pantoprazole IV* 40 MG IV SCH (20:19)
[2017-10-01] MEDS: Acetaminophen TAB* 325 MG PO PRN (01:50)
[2017-10-01] MEDS: Morphine VIAL* 4 MG/ML VIAL (1 ml vial) IV PRN (01:50)
[2017-10-01] MEDS: Heparin VIAL(*) 5000 UNITS/ML VIAL (FIVE THOUSAND) SUBCUT SCH ×3 (06:30→21:48)
--- NOTE | 2017-10-01 06:39 | CONS ---
GASTROENTEROLOGY CONSULTATION DATE: - ROOM #418 CONSULTING PHYSICIAN: Dr. Meenakshi Espitia REASON FOR CONSULTATION: Persisting complaints of abdominal pain, in a woman admitted to the emergency room complaining of shortness of breath, chest pain, and abdominal pain on morning of 09/27/17 and who has maintained stable vital signs since admission. HISTORY: This 81-year-old woman with a history of COPD (still smoking), status post abdominal aortic aneurysm repair, obesity, status post cholecystectomy, appendectomy, hysterectomy, and with a recent bout of shingles, has continued to complain of abdominal pain, receiving parenteral morphine several times a day. In the emergency room, history was unclear, she seemed to be a poor historian. She had had a recent bout of shingles, was complaining of radiating chest pain. She also complained of abdominal pain. History was later obtained that the patient had not had a bowel movement for many days as an outpatient and being embarrassed about that function with her son visiting was referenced. She has a long history of constipation. The emergency room visit ledshruti shows visits for generalized abdominal pain in February 2017, November and October of 2015, May 2013, and September 2011. 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 On 11/10/11, she had an outpatient upper and lower endoscopy by Dr. Mendosa at the [place] office. The upper endoscopy showed erythema in the gastric antrum, but was fairly unimpressive overall. The colonoscopy was likewise unimpressive with a couple of small 4- to 5-mm polyps removed via snare cautery in the sigmoid. They were hyperplastic. That note made reference to generalized abdominal pain. She had had an abdominal aneurysm followup for quite some time and a repair at [facility] in 2013. PAST MEDICAL HISTORY: 1. COPD. 2. Obesity. 3. Continued tobacco abuse. 4. Status post abdominal aortic aneurysm repair. 5. Status post cholecystectomy. 6. Status post appendectomy. 7. Status post hysterectomy. 8. History of hypertension, blood pressure in the emergency room 185/125. 9. Recent shingles. MEDICATIONS: At home, aspirin 325; atorvastatin 10; furosemide 40; prednisone 10. SOCIAL HISTORY: She lives alone. She has a daughter, who lives nearby. REVIEW OF SYSTEMS: No history of TIA, seizure, stroke, recent fall or fracture , hemoptysis, TB, fever, hepatitis, rectal bleeding, or recent antibiotics. PHYSICAL EXAM: She is an elderly woman with a face tent on, sitting in a chair , having eaten 80% of her dinner. She initially denied any abdominal pain. She then said she had global pain and just motioned broadly over the upper abdomen. HEENT exam showed no icterus. Mucous membranes are moist. She had no adenopathy. Breath sounds were quite diminished symmetrically. Breasts and pelvic exams deferred. The abdomen was obese with normal bowel sounds; they were not mechanical. The abdomen was firm, not hard and there was symmetric complaint of deep tenderness. There was no focal tenderness or rigidity. Extremities show 1 to 2+ edema, both ankles. There was no rash. Rectal was not done. The patient indicated she would find it very difficult to get to bed. HOSPITAL COURSE: She has been treated with continuation of her outpatient aspirin; atorvastatin; furosemide; gabapentin (previously prescribed and not taken) administered along with Levaquin 250; methylprednisolone 40 once a day; pantoprazole 40 mg daily IV; MiraLAX daily. The patient has refused a couple of doses. Initially, she was complaining of pain, but had no fever or emesis. She continued to eat and indeed did not want to have meals missed. After about 36 hours per report, she began passing some loose stools. LABORATORY DATA: Initial CBC showed white count 10.4, the next day 6.2; hemoglobin 14.6 and on repeat 14.2; MCV 101. Chemistry is remarkable for CRP 1.07, sodium 139, bicarbonate 40, BUN 21, creatinine 0.84. LFTs normal. IMAGING: CT scan showed an old T12 fracture, obesity, changes of COPD, and an abdominal aortic aneurysm repair without an acute change. She is status post cholecystectomy, appendectomy, hysterectomy. IMPRESSION: This 81-year-old woman with severe chronic obstructive pulmonary disease, who is still smoking, complains of a global abdominal pain and somewhat of an upper abdominal focus. She has a retained appetite and indeed wants to eat and has been doing well with that. There has been no fever or vomiting or diarrhea out of proportion to the laxative she has been given. As an outpatient, she has been taking a full aspirin and some prednisone. A peptic process in the stomach is possible, so at this time, she has been empirically started on pantoprazole, which might certainly cover that possibility once a week to 10 days has been given. As there is no absolutely safe dose of aspirin, switching her to a baby aspirin would be a consideration. Retained appetite, lack of fever, and lack of any symptomatic progression over 3 - 1/2 days in the hospital would seem to indicate that further imaging studies are likely to be low yield. There is certainly the possibility that it could be mucosal disease in the upper gastrointestinal tract, it could be definable in further detail with an endoscopy, but it is not clear that that would lead to a different approach to treatment. Most likely, her pain is chronic related to the abdominal wall and to a certain extent colonic motility and she has little limited insight into possible differences of the two. Whether or not to perform upper endoscopy will be discussed further with her primary team. Addendum: on 10/01/17 elected not to do EGD for now. [id number]/[facility] #: [id number] [facility]ITAL[facility]
[2017-10-01 07:41] LABS: ABS Basophils 0 10^3/ul (0-0.2); ABS Eosinophils 0.1 10^3/ul (0-0.6); ABS Lymphocytes 2.1 10^3/ul (1.0-4.8); ABS Monocytes 0.8 10^3/ul (0-0.8); ABS Neutrophils 5.1 10^3/ul (1.5-7.7); ABS Nucleated RBC 0 10^3/ul; Hematocrit 40 % (35-47); Hemoglobin 13.8 g/dl (12.0-16.0); Mean Corpuscular HGB Conc 34 g/dl (31-36); Mean Corpuscular Hemoglobin 35 pg (27-31); Mean Corpuscular Volume 102 fL (80-97); Mean Platelet Volume 9.5 um3 (7.4-10.4); Nucleated Red Blood Cells % 0; Platelet Count 214 10^3/ul (150-450); Red Blood Count 3.92 10^6/ul (4.00-5.40); Red Cell Distribution Width 15 % (10.5-15); White Blood Count 8.1 10^3/ul (3.5-10.8)
[2017-10-01 07:55] LABS: EGFR Non-African American 66.6 (>60)
[2017-10-01] MEDS ORDERED: methylPREDNISolone SOD 40 MG* 1 ML VIAL IV SCH (09:00)
[2017-10-01] MEDS: Furosemide TAB* 40 MG PO SCH (09:03)
[2017-10-01] MEDS: Aspirin EC TAB* 325 MG PO SCH (09:03)
[2017-10-01] MEDS: Docusate CAP* 100 MG PO SCH ×3 (09:03→20:36)
[2017-10-01] MEDS: Atorvastatin* 20 MG TAB PO SCH (09:03)
[2017-10-01] MEDS: Potassium Chlor TAB* 20 MEQ TAB.ER PO SCH ×2 (09:04→20:29)
[2017-10-01] MEDS: Gabapentin CAP(*) 100 MG PO SCH ×2 (09:04→20:29)
[2017-10-01] MEDS: Levofloxacin 250 MG IVPREMX(*) 250 MG/50 ML BAG IVPB SCH (09:11)
[2017-10-01] MEDS: Polyethylene Glycol 3350* 17 GM PACKET PO SCH ×2 (09:11→20:37)
[2017-10-01] MEDS: ALPRAZolam TAB* 0.25 MG PO PRN ×2 (14:10→20:29)
--- NOTE | 2017-10-01 14:16 | PN ---
Subjective Date of Service: 10/01/17 Interval History: Patient seen and examined at bedside. Denies fever, chills, shortness of breath , chest discomfort, N/V/D. Pt states that she continues to feel like she has a lot of stool in her abdomen, and is bloated. She reports that the BMs she has had are mostly liquids and feels like there is "harder stool" up higher. She is also reporting chest congestion and post nasal drip. Family History: Unchanged from Admission Social History: Unchanged from Admission Past Medical History: Unchanged from Admission Objective Active Medications: Acetaminophen (Tylenol Tab*) 650 mg PO Q6H PRN Reason: pain/fever Albuterol/Ipratropium (Duoneb (Albuterol 2.5 Mg/Ipratropium 0.5 Mg)) 1 neb INH Q4H PRN Reason: SOB/WHEEZING Alprazolam (Xanax Tab*) 0.25 mg PO BID PRN Reason: ANXIETY Aspirin (Ecotrin Ec Tab*) 325 mg PO DAILY PRICILA Atorvastatin Calcium (Lipitor*) 20 mg PO DAILY PRICILA Docusate Sodium (Colace Cap*) 100 mg PO BID PRICILA Furosemide (Lasix Tab*) 40 mg PO DAILY PRICILA Gabapentin (Neurontin Cap(*)) 100 mg PO BID PRICILA Heparin Sodium (Porcine) (Heparin Vial(*)) 5,000 units SUBCUT Q8HR PRICILA Levofloxacin/Dextrose (Levaquin 250 Mg Ivpremx(*)) 250 mg in 50 mls @ 50 mls/ hr IVPB Q24H PRICILA Magnesium Hydroxide (Milk Of Magnesia Liq*) 30 ml PO BID PRN Reason: CONSTIPATION Melatonin (Melatonin) 3 mg PO BEDTIME PRN Reason: SLEEP Methylprednisolone Sodium Succinate (Solu-Medrol 40 Mg) 40 mg IV DAILY PRICILA Morphine Sulfate (Morphine Vial*) 4 mg IV Q3H PRN Reason: SEVERE PAIN Pantoprazole Sodium (Protonix Iv*) 40 mg IV Q24H PRICILA Polyethylene Glycol/Electrolytes (Miralax*) 17 gm PO 08,2099 PRICILA Potassium Chloride (Klor Con Er Tab*) 20 meq PO BID PRICILA Prochlorperazine Edisylate (Compazine Inj*) 5 mg IV Q6H PRN Reason: NAUSEA/ VOMITING Sodium Biphosphate/Sodium Phosphate (Fleet Enema*) 1 bottle IA DAILY PRN Reason : CONSTIPATION Vital Signs - 8 hr 06/22/18 06/22/18 06/22/18 07:35 08:00 09:04 Temperature 97.5 F Pulse Rate 57 Respiratory 18 24 24 Rate Blood Pressure 126/54 (mmHg) O2 Sat by Pulse 92 Oximetry 10/01/17 10/01/17 10/01/17 11:15 12:12 14:10 Temperature 98.1 F Pulse Rate 65 Respiratory 25 18 20 Rate Blood Pressure 155/74 (mmHg) O2 Sat by Pulse 94 Oximetry Oxygen Devices in Use Now: OxyMask - 5L Appearance: NAD, sitting up in a chair Ears/Nose/Mouth/Throat: Mucous Membranes Moist Respiratory: Symmetrical Chest Expansion and Respiratory Effort, - - Lungs with scattered rhonchi bilateral Cardiovascular: NL Sounds; No Murmurs; No JVD, RRR Abdominal: NL Sounds; No Tenderness; No Distention Extremities: - - Trace bilateral LE edema Neurological: Alert and Oriented x 3, NL Muscle Strength and Tone Lines/Tubes/Other Access: Clean, Dry and Intact Peripheral IV - site benign Nutrition: Taking PO's Result Diagrams: 10/01/17 06:54 10/01/17 06:54 Additional Lab and Data: . Microbiology and Other Data: Microbiology 09/27/17 05:20 Aerobic Blood Culture - Preliminary Blood Venous No Growth Day 3 Anaerobic Blood Culture - Preliminary No Growth Day 3 09/27/17 05:20 Aerobic Blood Culture - Preliminary Blood Venous No Growth Day 3 Anaerobic Blood Culture - Preliminary No Growth Day 3 Assess/Plan/Problems-Billing Assessment: Mrs Saucedo is an 81yo F with PMH of HLD, HTN, hypothyroidism, anxiety, COPD on home O2 at night, AAA s/p repair, herpes zoster, diverticulosis, s/p cholecystectomy and appendectomy, who presented to ED with c/o chest, back, and abdominal pain, found to have severe constipation. - Patient Problems (1) Abdominal pain Code(s): R10.9 - UNSPECIFIED ABDOMINAL PAIN SNOMED Code(s): 14551353 Comment: - CTA was negative for dissection, no acute abnormalities of the abd/pelvis were seen. - Initially suspected her pain was secondary to constipation - Pain much improved after multiple BMs yesterday, but worse again yesterday. Denies N/V, appetite is preserved and she does not wish to be NPO - GI consult, input appreciated - Continue bowel regimen (2) Chest pain Code(s): R07.9 - CHEST PAIN, UNSPECIFIED SNOMED Code(s): 21894385 Comment: - Suspect secondary to post herpetic pain - Serial troponins were negative and EKG showed no acute ischemic changes. CTA negative for PE/aortic aneurysm/dissection - Continue Gabapentin, Aspirin and Atorvastatin. Beta-blockers contraindicated due to her severe COPD. - May benefit of stress test when more stable, probably as outpatient (3) V-tach Code(s): I47.2 - VENTRICULAR TACHYCARDIA SNOMED Code(s): 07465499 Comment: - Patient had 10 beats of Vtach, asymptomatic, while sleeping - Continue to replete potassium - goal >4. Magnesium is within normal limits. - Would avoid beta-blockers due to her COPD - Echo showed EF>65%, with no reported wall motion abnormalities or significant valvular disease. - Continue to monitor (4) COPD exacerbation Code(s): J44.1 - CHRONIC OBSTRUCTIVE PULMONARY DISEASE W (ACUTE) EXACERBATION SNOMED Code(s): 019362780 Comment: - With acute on chronic hypoxic respiratory failure, Pt uses O2 at 2.5 L at home and is on 5L via oximask here - Her abdominal discomfort also limits her inspiratory effort - Continue steroids (change to PO in the AM), bronchodilators, and Levofloxacin (change to PO) - Will try nebs OTC (5) AAA (abdominal aortic aneurysm) Code(s): I71.4 - ABDOMINAL AORTIC ANEURYSM, WITHOUT RUPTURE SNOMED Code(s): 907530114 Comment: - Records from [facility] reviewed - patient had an infrarenal AAA measuring 6.2cm and underwent endovascular ( endograft) repair with a modular bifurcated prosthesis in 2013. (6) HLD (hyperlipidemia) Code(s): E78.5 - HYPERLIPIDEMIA, UNSPECIFIED SNOMED Code(s): 99147860 Comment: - Continue Atorvastatin. (7) Anxiety Code(s): F41.9 - ANXIETY DISORDER, UNSPECIFIED SNOMED Code(s): 84590196 Comment: - Supportive care - Resume home xanax PRN (8) DVT prophylaxis Code(s): VSM0572 - SNOMED Code(s): 639909995 Comment: - SQ heparin (9) Full code status Code(s): Z78.9 - OTHER SPECIFIED HEALTH STATUS SNOMED Code(s): 890845543 Status and Disposition: Inpatient. Discharge to home when medically stable. Attending: Jaimie Esqueda
[2017-10-01] MEDS ORDERED: Saline NASAL SPRAY 0.65%* BTL BOTH NARES PRN (14:42)
[2017-10-01] MEDS: Albuterol/Ipratropium NEB.SOL* Albuterol 2.5 MG/Ipratropium 0.5 MG 3 ML INH SCH ×2 (16:02→20:07)
[2017-10-01] MEDS: Pantoprazole IV* 40 MG IV SCH (20:28)
[2017-10-02] MEDS: Albuterol/Ipratropium NEB.SOL* Albuterol 2.5 MG/Ipratropium 0.5 MG 3 ML INH SCH ×4 (01:41→20:00)
[2017-10-02] MEDS: Heparin VIAL(*) 5000 UNITS/ML VIAL (FIVE THOUSAND) SUBCUT SCH ×3 (06:24→21:28)
[2017-10-02] MEDS: Polyethylene Glycol 3350* 17 GM PACKET PO SCH ×2 (08:23→20:39)
[2017-10-02] MEDS: Gabapentin CAP(*) 100 MG PO SCH ×2 (09:36→20:34)
[2017-10-02] MEDS: Furosemide TAB* 40 MG PO SCH (09:38)
[2017-10-02] MEDS: Levofloxacin TAB* 250 MG PO SCH (09:39)
[2017-10-02] MEDS: Aspirin EC TAB* 81 MG TAB.EC PO SCH (09:41)
[2017-10-02] MEDS: Docusate CAP* 100 MG PO SCH ×2 (09:41→20:34)
[2017-10-02] MEDS: Atorvastatin* 20 MG TAB PO SCH (09:42)
[2017-10-02] MEDS: predniSONE TAB* 20 MG PO SCH (09:42)
[2017-10-02] MEDS: Potassium Chlor TAB* 20 MEQ TAB.ER PO SCH ×2 (09:47→20:34)
--- NOTE | 2017-10-02 11:18 | PN ---
Subjective Date of Service: 10/02/17 Interval History: Patient seen and examined at bedside. Denies fever, chills, chest discomfort, N/ V/D. Pt continues to report abdominal pain and feeling constipated, in addition Pt has increased shortness of breath today and difficulty talking. Pt is anxious in general but more anxious to get home. She states that she has dealt with constipation all her life. Family History: Unchanged from Admission Social History: Unchanged from Admission Past Medical History: Unchanged from Admission Objective Active Medications: Acetaminophen (Tylenol Tab*) 650 mg PO Q6H PRN Reason: pain/fever Albuterol/Ipratropium (Duoneb (Albuterol 2.5 Mg/Ipratropium 0.5 Mg)) 1 neb INH [id number] AWAKE PRICILA Alprazolam (Xanax Tab*) 0.25 mg PO BID PRN Reason: ANXIETY Aspirin (Aspirin Ec Tab*) 81 mg PO DAILY PRICILA Atorvastatin Calcium (Lipitor*) 20 mg PO DAILY PRICILA Docusate Sodium (Colace Cap*) 100 mg PO BID PRICILA Furosemide (Lasix Tab*) 40 mg PO DAILY PRICILA Gabapentin (Neurontin Cap(*)) 100 mg PO BID PRICILA Heparin Sodium (Porcine) (Heparin Vial(*)) 5,000 units SUBCUT Q8HR PRICILA Levofloxacin (Levaquin Tab*) 250 mg PO Q24H PRICILA Stop: 10/05/17 08:59 Magnesium Hydroxide (Milk Of Magncalvin Liq*) 30 ml PO BID PRN Reason: CONSTIPATION Melatonin (Melatonin) 3 mg PO BEDTIME PRN Reason: SLEEP Morphine Sulfate (Morphine Vial*) 4 mg IV Q3H PRN Reason: SEVERE PAIN Pantoprazole Sodium (Protonix Iv*) 40 mg IV Q24H [facility] Polyethylene Glycol/Electrolytes (Miralax*) 17 gm PO 0801,2100 PRICILA Potassium Chloride (Klor Con Er Tab*) 20 meq PO BID PRICILA Prednisone (Deltasone Tab*) 60 mg PO DAILY PRICILA Prochlorperazine Edisylate (Compazine Inj*) 5 mg IV Q6H PRN Reason: NAUSEA/ VOMITING Sodium Biphosphate/Sodium Phosphate (Fleet Enema*) 1 bottle OR DAILY PRN Reason : CONSTIPATION Sodium Chloride (Sodium Chloride 0.65% Nasal [place]*) 1 spray BOTH NARES Q4H PRN Reason: CONGESTION Vital Signs - 8 hr 10/02/17 10/02/17 10/02/17 07:36 08:00 09:36 Temperature 97.4 F Pulse Rate 62 Respiratory 22 22 22 Rate Blood Pressure 166/75 (mmHg) O2 Sat by Pulse 92 Oximetry Oxygen Devices in Use Now: OxyMask - 5L Appearance: NAD, sitting up in a chair Ears/Nose/Mouth/Throat: Mucous Membranes Moist Respiratory: Symmetrical Chest Expansion and Respiratory Effort, - - Rhonchi bilateral Cardiovascular: NL Sounds; No Murmurs; No JVD, RRR Abdominal: NL Sounds; No Tenderness; No Distention Extremities: No Edema Skin: No Rash or Ulcers Neurological: Alert and Oriented x 3, NL Muscle Strength and Tone Lines/Tubes/Other Access: Clean, Dry and Intact Peripheral IV - site benign Nutrition: Taking PO's Result Diagrams: 10/01/17 06:54 10/01/17 06:54 Additional Lab and Data: . Microbiology and Other Data: Microbiology 09/27/17 05:20 Aerobic Blood Culture - Preliminary Blood Venous No Growth Day 3 Anaerobic Blood Culture - Preliminary No Growth Day 3 09/27/17 05:20 Aerobic Blood Culture - Preliminary Blood Venous No Growth Day 3 Anaerobic Blood Culture - Preliminary No Growth Day 3 Assess/Plan/Problems-Billing Assessment: Mrs Saucedo is an 81yo F with PMH of HLD, HTN, hypothyroidism, anxiety, COPD on home O2 at night, AAA s/p repair, herpes zoster, diverticulosis, s/p cholecystectomy and appendectomy, who presented to ED with c/o chest, back, and abdominal pain, found to have severe constipation. - Patient Problems (1) Abdominal pain Code(s): R10.9 - UNSPECIFIED ABDOMINAL PAIN SNOMED Code(s): 38625854 Comment: - CTA was negative for dissection, no acute abnormalities of the abd/pelvis were seen. - Initially suspected her pain was secondary to constipation - Pain much improved after multiple BMs yesterday, but worse again yesterday. Denies N/V, appetite is preserved and she does not wish to be NPO - GI consult, input appreciated - Continue bowel regimen - Will check ABD xray today (2) Chest pain Code(s): R07.9 - CHEST PAIN, UNSPECIFIED SNOMED Code(s): 21116337 Comment: - Suspect secondary to post herpetic pain - Serial troponins were negative and EKG showed no acute ischemic changes. CTA negative for PE/aortic aneurysm/dissection - Continue Gabapentin, Aspirin and Atorvastatin. Beta-blockers contraindicated due to her severe COPD. - May benefit of stress test when more stable, probably as outpatient (3) V-tach Code(s): I47.2 - VENTRICULAR TACHYCARDIA SNOMED Code(s): 65795059 Comment: - Patient had 10 beats of Vtach, asymptomatic, while sleeping - Continue to replete potassium - goal >4. Magnesium is within normal limits. - Would avoid beta-blockers due to her COPD - Echo showed EF>65%, with no reported wall motion abnormalities or significant valvular disease. - Continue to monitor (4) COPD exacerbation Code(s): J44.1 - CHRONIC OBSTRUCTIVE PULMONARY DISEASE W (ACUTE) EXACERBATION SNOMED Code(s): 576465230 Comment: - With acute on chronic hypoxic respiratory failure, Pt uses O2 at 2.5 L at home and is on 5L via oximask here - Her abdominal discomfort also limits her inspiratory effort - Pt appears more short of breath today, will check chest xray - Continue steroids, bronchodilators, Levofloxacin, and OTC nebs - Start flutter valve (5) AAA (abdominal aortic aneurysm) Code(s): I71.4 - ABDOMINAL AORTIC ANEURYSM, WITHOUT RUPTURE SNOMED Code(s): 443471866 Comment: - Records from [facility] reviewed - Patient had an infrarenal AAA measuring 6.2cm and underwent endovascular ( endograft) repair with a modular bifurcated prosthesis in 2014. (6) HLD (hyperlipidemia) Code(s): E78.5 - HYPERLIPIDEMIA, UNSPECIFIED SNOMED Code(s): 47803819 Comment: - Continue Atorvastatin. (7) Anxiety Code(s): F41.9 - ANXIETY DISORDER, UNSPECIFIED SNOMED Code(s): 64942845 Comment: - Supportive care - Continue home xanax PRN (8) DVT prophylaxis Code(s): [id number] - SNOMED Code(s): 983671049 Comment: - SQ heparin (9) Full code status Code(s): Z78.9 - OTHER SPECIFIED HEALTH STATUS SNOMED Code(s): 305086004 Status and Disposition: Inpatient. Discharge to home when medically stable. Attending: Erich Hobson
[2017-10-02] MEDS: ALPRAZolam TAB* 0.25 MG PO PRN (11:29)
--- NOTE | 2017-10-02 13:29 | RAD ---
INDICATION: Constipation COMPARISON: Abdomen November 27, 2015 TECHNIQUE: Erect and supine views of the abdomen are submitted. FINDINGS: Bones: There are no acute bony findings. Soft tissues: There are clips in gallbladder fossa. There is an endovascular stent graft. There are additional clips in the right mid abdomen and left lower pelvis. Bowel gas pattern: Normal Calcifications: There are no abnormal calcifications. Other: None IMPRESSION: NO ACUTE DIAGNOSTIC FINDINGS. POST SURGICAL CHANGES.
--- NOTE | 2017-10-02 13:31 | RAD ---
INDICATION: Short of breath COMPARISON: Chest x-ray September 27, 2017 TECHNIQUE: PA and lateral dual-energy views were obtained. FINDINGS: Bones/Soft Tissues: There are no acute bony findings. Cardiomediastinal: The cardiomediastinal silhouette is normal. Lungs: There are no focal infiltrates or masses. There is mild coarsening of interstitium consistent with chronic interstitial change. Pleura: There are no pleural effusions. Other: None IMPRESSION: NO ACTIVE DISEASE.
[2017-10-02] MEDS: Morphine VIAL* 4 MG/ML VIAL (1 ml vial) IV PRN (16:51)
[2017-10-02] MEDS: Pantoprazole IV* 40 MG IV SCH (20:34)
[2017-10-02] MEDS: Nystatin TOP POWDER* 15 GM BTL TOPICAL SCH (23:48)
[2017-10-03] MEDS: Morphine VIAL* 4 MG/ML VIAL (1 ml vial) IV PRN
[2017-10-03] MEDS: Albuterol/Ipratropium NEB.SOL* Albuterol 2.5 MG/Ipratropium 0.5 MG 3 ML INH SCH ×3 (01:39→13:19)
[2017-10-03] MEDS: Heparin VIAL(*) 5000 UNITS/ML VIAL (FIVE THOUSAND) SUBCUT SCH ×3 (05:43→21:40)
[2017-10-03 07:00] LABS: ABS Basophils 0 10^3/ul (0-0.2); ABS Eosinophils 0.1 10^3/ul (0-0.6); ABS Monocytes 0.6 10^3/ul (0-0.8); ABS Neutrophils 6.2 10^3/ul (1.5-7.7); ABS Nucleated RBC 0 10^3/ul; Eosinophil % 1.1 % (0-6); Hematocrit 41 % (35-47); Hemoglobin 14.1 g/dl (12.0-16.0); Lymphocyte % 22.6 % (25-47); Mean Corpuscular HGB Conc 34 g/dl (31-36); Mean Corpuscular Hemoglobin 35 pg (27-31); Mean Corpuscular Volume 103 fL (80-97); Mean Platelet Volume 8.9 um3 (7.4-10.4); Nucleated Red Blood Cells % 0; Platelet Count 229 10^3/ul (150-450); Red Blood Count 4.02 10^6/ul (4.00-5.40); Red Cell Distribution Width 15 % (10.5-15); White Blood Count 8.9 10^3/ul (3.5-10.8)
[2017-10-03] MEDS: Polyethylene Glycol 3350* 17 GM PACKET PO SCH ×2 (07:39→20:20)
[2017-10-03] MEDS: Atorvastatin* 20 MG TAB PO SCH (07:41)
[2017-10-03] MEDS: Aspirin EC TAB* 81 MG TAB.EC PO SCH (07:41)
[2017-10-03] MEDS: Docusate CAP* 100 MG PO SCH ×2 (07:41→20:15)
[2017-10-03] MEDS: Furosemide TAB* 40 MG PO SCH (07:42)
[2017-10-03] MEDS: Gabapentin CAP(*) 100 MG PO SCH ×2 (07:42→20:15)
[2017-10-03] MEDS: guaiFENesin ER TAB 600 MG PO SCH ×2 (07:44→20:15)
[2017-10-03] MEDS: Nystatin TOP POWDER* 15 GM BTL TOPICAL SCH ×3 (07:45→20:15)
[2017-10-03] MEDS: Levofloxacin TAB* 250 MG PO SCH (07:45)
[2017-10-03] MEDS: Potassium Chlor TAB* 20 MEQ TAB.ER PO SCH ×2 (07:46→20:15)
[2017-10-03] MEDS: predniSONE TAB* 20 MG PO SCH (07:46)
--- NOTE | 2017-10-03 08:06 | PN ---
Subjective Date of Service: 10/03/17 Interval History: Patient seen and examined at bedside. Denies fever, chills, chest discomfort, N/ V/D. Pt states that she feels like "stuff" is moving in her abdomen now. She hasn't moved her bowels today. Pt states that when she talks she feels like she has a lot of mucous and a difficult time clearing it, it also causes pain in her throat and into her back when she talks. She feels like overall her breathing is much better today and she is anxious for possible discharge to home tomorrow. Tele: Sinus rhythm, rate 70's Family History: Unchanged from Admission Social History: Unchanged from Admission Past Medical History: Unchanged from Admission Objective Active Medications: Acetaminophen (Tylenol Tab*) 650 mg PO Q6H PRN Reason: pain/fever Albuterol/Ipratropium (Duoneb (Albuterol 2.5 Mg/Ipratropium 0.5 Mg)) 1 neb INH [id number] AWAKE [facility] Alprazolam (Xanax Tab*) 0.25 mg PO BID PRN Reason: ANXIETY Aspirin (Aspirin Ec Tab*) 81 mg PO DAILY [facility] Atorvastatin Calcium (Lipitor*) 20 mg PO DAILY [facility] Docusate Sodium (Colace Cap*) 100 mg PO BID [facility] Furosemide (Lasix Tab*) 40 mg PO DAILY [facility] Gabapentin (Neurontin Cap(*)) 100 mg PO BID [facility] Guaifenesin (Mucinex*) 1,200 mg PO BID [facility] Heparin Sodium (Porcine) (Heparin Vial(*)) 5,000 units SUBCUT Q8HR [facility] Levofloxacin (Levaquin Tab*) 250 mg PO Q24H [facility] Stop: 10/05/17 08:59 Magnesium Hydroxide (Milk Of Magnesia Liq*) 30 ml PO BID PRN Reason: CONSTIPATION Melatonin (Melatonin) 3 mg PO BEDTIME PRN Reason: SLEEP Morphine Sulfate (Morphine Vial*) 4 mg IV Q3H PRN Reason: SEVERE PAIN Nystatin (Nystatin Top Powder*) 1 applic TOPICAL TID [facility] Pantoprazole Sodium (Protonix Iv*) 40 mg IV Q24H [facility] Polyethylene Glycol/Electrolytes (Miralax*) 17 gm PO 0801,2100 [facility] Potassium Chloride (Klor Con Er Tab*) 20 meq PO BID [facility] Prednisone (Deltasone Tab*) 60 mg PO DAILY [facility] Prochlorperazine Edisylate (Compazine Inj*) 5 mg IV Q6H PRN Reason: NAUSEA/ VOMITING Sodium Biphosphate/Sodium Phosphate (Fleet Enema*) 1 bottle ND DAILY PRN Reason : CONSTIPATION Sodium Chloride (Sodium Chloride 0.65% Nasal [place]*) 1 spray BOTH NARES Q4H PRN Reason: CONGESTION Vital Signs - 8 hr 10/03/17 10/03/17 10/03/17 00:00 00:58 01:41 Pulse Rate 79 Respiratory 18 18 16 Rate O2 Sat by Pulse 97 97 Oximetry 10/03/17 10/03/17 02:38 07:42 Pulse Rate Respiratory 18 18 Rate O2 Sat by Pulse Oximetry Oxygen Devices in Use Now: High Flow Nasal Cannula - 7L Appearance: NAD, sitting up in a chair Ears/Nose/Mouth/Throat: Mucous Membranes Moist Respiratory: Symmetrical Chest Expansion and Respiratory Effort, - - Rhonchi bilateral Cardiovascular: NL Sounds; No Murmurs; No JVD, RRR Abdominal: NL Sounds; No Tenderness; No Distention Extremities: No Edema Skin: No Rash or Ulcers Neurological: Alert and Oriented x 3, NL Muscle Strength and Tone Lines/Tubes/Other Access: Clean, Dry and Intact Peripheral IV - site benign Nutrition: Taking PO's Result Diagrams: 10/03/17 06:45 10/01/17 06:54 Additional Lab and Data: . Microbiology and Other Data: Microbiology 09/27/17 05:20 Aerobic Blood Culture - Preliminary Blood Venous No Growth Day 3 Anaerobic Blood Culture - Preliminary No Growth Day 3 09/27/17 05:20 Aerobic Blood Culture - Preliminary Blood Venous No Growth Day 3 Anaerobic Blood Culture - Preliminary No Growth Day 3 Assess/Plan/Problems-Billing Assessment: Mrs Saucedo is an 81yo F with PMH of HLD, HTN, hypothyroidism, anxiety, COPD on home O2 at night, AAA s/p repair, herpes zoster, diverticulosis, s/p cholecystectomy and appendectomy, who presented to ED with c/o chest, back, and abdominal pain, found to have severe constipation. - Patient Problems (1) COPD exacerbation Code(s): J44.1 - CHRONIC OBSTRUCTIVE PULMONARY DISEASE W (ACUTE) EXACERBATION SNOMED Code(s): 422687959 Comment: - With acute on chronic hypoxic respiratory failure, Pt uses O2 at 2.5 L at home and is now up to 8L via highflow NC - Will work to wean O2 today with O2 sat goal 88-92% - Her abdominal discomfort also limits her inspiratory effort - Chest xray without acute findings - Continue steroids, bronchodilators, Levofloxacin, and OTC nebs - Continue flutter valve - Will start Mucinex (2) Abdominal pain Code(s): R10.9 - UNSPECIFIED ABDOMINAL PAIN SNOMED Code(s): 89610026 Comment: - Improving - CTA was negative for dissection, no acute abnormalities of the abd/pelvis were seen. - Initially suspected her pain was secondary to constipation - GI consult, input appreciated - ABD xray without acute findings - Continue bowel regimen (3) Chest pain Code(s): R07.9 - CHEST PAIN, UNSPECIFIED SNOMED Code(s): 09262517 Comment: - Suspect secondary to post herpetic pain - Serial troponins were negative and EKG showed no acute ischemic changes. CTA negative for PE/aortic aneurysm/dissection - Continue Gabapentin, Aspirin and Atorvastatin. Beta-blockers contraindicated due to her severe COPD. - May benefit of stress test when more stable, probably as outpatient (4) V-tach Code(s): I47.2 - VENTRICULAR TACHYCARDIA SNOMED Code(s): 83440626 Comment: - Patient had 10 beats of Vtach, asymptomatic, while sleeping - Potassium - goal >4. Magnesium - goal > 2. - Would avoid beta-blockers due to her COPD - Echo showed EF>65%, with no reported wall motion abnormalities or significant valvular disease. - Continue to monitor (5) AAA (abdominal aortic aneurysm) Code(s): I71.4 - ABDOMINAL AORTIC ANEURYSM, WITHOUT RUPTURE SNOMED Code(s): 846133690 Comment: - Records from [facility] reviewed - Patient had an infrarenal AAA measuring 6.2cm and underwent endovascular ( endograft) repair with a modular bifurcated prosthesis in 2014. (6) HLD (hyperlipidemia) Code(s): E78.5 - HYPERLIPIDEMIA, UNSPECIFIED SNOMED Code(s): 80361818 Comment: - Continue Atorvastatin. (7) Anxiety Code(s): F41.9 - ANXIETY DISORDER, UNSPECIFIED SNOMED Code(s): 82339802 Comment: - Supportive care - Continue home xanax PRN (8) DVT prophylaxis Code(s): XTC1270 - SNOMED Code(s): 048174585 Comment: - SQ heparin (9) Full code status Code(s): Z78.9 - OTHER SPECIFIED HEALTH STATUS SNOMED Code(s): 426126802 Status and Disposition: Inpatient. Discharge to home when medically stable, possibly in the AM.
[2017-10-03] MEDS ORDERED: Albuterol/Ipratropium NEB.SOL* Albuterol 2.5 MG/Ipratropium 0.5 MG 3 ML INH PRN ×2 (13:18→18:37)
[2017-10-03] MEDS: ALPRAZolam TAB* 0.25 MG PO PRN (14:33)
[2017-10-03] MEDS: Pantoprazole IV* 40 MG IV SCH (20:15)
[2017-10-04] MEDS: Heparin VIAL(*) 5000 UNITS/ML VIAL (FIVE THOUSAND) SUBCUT SCH ×3 (05:41→21:13)
[2017-10-04] MEDS: Polyethylene Glycol 3350* 17 GM PACKET PO SCH ×2 (07:57→20:32)
[2017-10-04] MEDS: Furosemide TAB* 40 MG PO SCH (07:57)
[2017-10-04] MEDS: Aspirin EC TAB* 81 MG TAB.EC PO SCH (07:57)
[2017-10-04] MEDS: Gabapentin CAP(*) 100 MG PO SCH ×2 (07:57→20:09)
[2017-10-04] MEDS: Docusate CAP* 100 MG PO SCH ×2 (07:57→20:10)
[2017-10-04] MEDS: predniSONE TAB* 20 MG PO SCH (07:58)
[2017-10-04] MEDS: Atorvastatin* 20 MG TAB PO SCH (07:58)
[2017-10-04] MEDS: guaiFENesin ER TAB 600 MG PO SCH ×2 (07:58→20:10)
[2017-10-04] MEDS: Potassium Chlor TAB* 20 MEQ TAB.ER PO SCH ×2 (07:59→20:09)
[2017-10-04] MEDS: Levofloxacin TAB* 250 MG PO SCH (07:59)
[2017-10-04] MEDS: Nystatin TOP POWDER* 15 GM BTL TOPICAL SCH ×3 (08:00→20:35)
[2017-10-04] MEDS: ALPRAZolam TAB* 0.25 MG PO PRN (13:55)
--- NOTE | 2017-10-04 15:50 | PN ---
Subjective Date of Service: 10/04/17 Interval History: Patient seen and examined at bedside. Denies fever, chills, N/V/D. Pt states that she continues to have epigastric discomfort that she feels radiates to her back. She reports a fall a few months ago and had an MRI in [place]. Denies numbness or tingling or loss of bowel or bladder control. She also continues to have shortness of breath and increased O2 needs. Tele: Sinus rhythm, rate 70-90's Family History: Unchanged from Admission Social History: Unchanged from Admission Past Medical History: Unchanged from Admission Objective Active Medications: Acetaminophen (Tylenol Tab*) 650 mg PO Q6H PRN Reason: pain/fever Albuterol/Ipratropium (Duoneb (Albuterol 2.5 Mg/Ipratropium 0.5 Mg)) 1 neb INH Q4H PRN Reason: SOB/WHEEZING Alprazolam (Xanax Tab*) 0.25 mg PO BID PRN Reason: ANXIETY Aspirin (Aspirin Ec Tab*) 81 mg PO DAILY [facility] Atorvastatin Calcium (Lipitor*) 20 mg PO DAILY [facility] Docusate Sodium (Colace Cap*) 100 mg PO BID [facility] Furosemide (Lasix Tab*) 40 mg PO DAILY [facility] Gabapentin (Neurontin Cap(*)) 100 mg PO BID [facility] Guaifenesin (Mucinex*) 1,200 mg PO BID [facility] Heparin Sodium (Porcine) (Heparin Vial(*)) 5,000 units SUBCUT Q8HR [facility] Levofloxacin (Levaquin Tab*) 250 mg PO Q24H [facility] Stop: 10/05/17 08:59 Magnesium Hydroxide (Milk Of Denise Liq*) 30 ml PO BID PRN Reason: CONSTIPATION Melatonin (Melatonin) 3 mg PO BEDTIME PRN Reason: SLEEP Morphine Sulfate (Morphine Vial*) 4 mg IV Q3H PRN Reason: SEVERE PAIN Nystatin (Nystatin Top Powder*) 1 applic TOPICAL TID [facility] Pantoprazole Sodium (Protonix Iv*) 40 mg IV Q24H [facility] Polyethylene Glycol/Electrolytes (Miralax*) 17 gm PO 08,2099 [facility] Potassium Chloride (Klor Con Er Tab*) 20 meq PO BID [facility] Prednisone (Deltasone Tab*) 60 mg PO DAILY [facility] Prochlorperazine Edisylate (Compazine Inj*) 5 mg IV Q6H PRN Reason: NAUSEA/ VOMITING Sodium Biphosphate/Sodium Phosphate (Fleet Enema*) 1 bottle AR DAILY PRN Reason : CONSTIPATION Sodium Chloride (Sodium Chloride 0.65% Nasal [place]*) 1 spray BOTH NARES Q4H PRN Reason: CONGESTION Vital Signs - 8 hr 10/04/17 10/04/17 10/04/17 07:57 08:00 11:31 Temperature 98.2 F Pulse Rate 98 Respiratory 18 18 17 Rate Blood Pressure 107/54 (mmHg) O2 Sat by Pulse 88 Oximetry 10/04/17 10/04/17 10/04/17 11:49 13:55 15:39 Temperature 98.1 F Pulse Rate 95 Respiratory 20 18 24 Rate Blood Pressure 137/78 (mmHg) O2 Sat by Pulse 92 Oximetry Oxygen Devices in Use Now: Nasal Cannula - 4 L Appearance: NAD, sitting in chair Ears/Nose/Mouth/Throat: Mucous Membranes Moist Respiratory: Symmetrical Chest Expansion and Respiratory Effort, - - Diminished , exp wheezing Cardiovascular: NL Sounds; No Murmurs; No JVD, RRR Abdominal: NL Sounds; No Tenderness; No Distention Extremities: No Edema, - - Tenderness with palpation at the T spine Skin: No Rash or Ulcers, - - Large area of ecchymosis to left upper arm Neurological: Alert and Oriented x 3, NL Muscle Strength and Tone Lines/Tubes/Other Access: Clean, Dry and Intact Peripheral IV - site benign Nutrition: Taking PO's Result Diagrams: 10/03/17 06:45 10/01/17 06:54 Additional Lab and Data: . Microbiology and Other Data: Microbiology 09/27/17 05:20 Aerobic Blood Culture - Preliminary Blood Venous No Growth Day 3 Anaerobic Blood Culture - Preliminary No Growth Day 3 09/27/17 05:20 Aerobic Blood Culture - Preliminary Blood Venous No Growth Day 3 Anaerobic Blood Culture - Preliminary No Growth Day 3 Assess/Plan/Problems-Billing Assessment: Mrs Saucedo is an 81yo F with PMH of HLD, HTN, hypothyroidism, anxiety, COPD on home O2 at night, AAA s/p repair, herpes zoster, diverticulosis, s/p cholecystectomy and appendectomy, who presented to ED with c/o chest, back, and abdominal pain, found to have severe constipation. - Patient Problems (1) COPD exacerbation Code(s): J44.1 - CHRONIC OBSTRUCTIVE PULMONARY DISEASE W (ACUTE) EXACERBATION SNOMED Code(s): 917688462 Comment: - With acute on chronic hypoxic respiratory failure, Pt uses O2 at 2.5 L at home and is now up to 4L via highflow NC - Will work to wean O2 today with O2 sat goal 88-92% - Her abdominal discomfort also limits her inspiratory effort - Chest xray without acute findings - Continue steroids, bronchodilators, Levofloxacin, Mucinex and PRN nebs - Continue flutter valve - Pulmonology consult, pending (2) T12 compression fracture Code(s): S22.080A - WEDGE COMPRESSION FRACTURE OF T11-T12 VERTEBRA, INIT SNOMED Code(s): 402730019 Comment: - Known since 08/2016 - Suspect this may be causing most of her pain - Increased compression on CTA - Will get CT to better eval - Neurosurgery consult, pending (3) Abdominal pain Code(s): R10.9 - UNSPECIFIED ABDOMINAL PAIN SNOMED Code(s): 06049629 Comment: - Improving - CTA was negative for dissection, no acute abnormalities of the abd/pelvis were seen. - Initially suspected her pain was secondary to constipation - GI consult, input appreciated - ABD xray without acute findings - Continue bowel regimen (4) Chest pain Code(s): R07.9 - CHEST PAIN, UNSPECIFIED SNOMED Code(s): 94689605 Comment: - Suspect secondary to post herpetic pain and T12 fracture - Serial troponins were negative and EKG showed no acute ischemic changes. CTA negative for PE/aortic aneurysm/dissection - Continue Gabapentin, Aspirin and Atorvastatin. Beta-blockers contraindicated due to her severe COPD. - May benefit of stress test when more stable, probably as outpatient (5) V-tach Code(s): I47.2 - VENTRICULAR TACHYCARDIA SNOMED Code(s): 73922131 Comment: - Patient had 10 beats of Vtach, asymptomatic, while sleeping - Potassium - goal >4. Magnesium - goal > 2. - Would avoid beta-blockers due to her COPD - Echo showed EF>65%, with no reported wall motion abnormalities or significant valvular disease. - Continue to monitor (6) AAA (abdominal aortic aneurysm) Code(s): I71.4 - ABDOMINAL AORTIC ANEURYSM, WITHOUT RUPTURE SNOMED Code(s): 954544990 Comment: - Records from [facility] reviewed - Patient had an infrarenal AAA measuring 6.2cm and underwent endovascular ( endograft) repair with a modular bifurcated prosthesis in 2013. (7) HLD (hyperlipidemia) Code(s): E78.5 - HYPERLIPIDEMIA, UNSPECIFIED SNOMED Code(s): 74934021 Comment: - Continue Atorvastatin. (8) Anxiety Code(s): F41.9 - ANXIETY DISORDER, UNSPECIFIED SNOMED Code(s): 01162983 Comment: - Supportive care - Continue home xanax PRN (9) DVT prophylaxis Code(s): JRN0465 - SNOMED Code(s): 682697287 Comment: - SQ heparin (10) Full code status Code(s): Z78.9 - OTHER SPECIFIED HEALTH STATUS SNOMED Code(s): 748242031 Status and Disposition: Inpatient. Discharge to home when medically stable, possibly in the AM.
--- NOTE | 2017-10-04 18:38 | RAD ---
INDICATION: "Squeezing" back pain in a patient with a known T12 fracture. COMPARISON: CTA chest abdomen pelvis September 27, 2017 TECHNIQUE: Axial source images of the thoracic spine were acquired with coronal and sagittal reformatting. FINDINGS: Unless otherwise specified comparisons below reference the September 27, 2017 CT examination. Again seen is a sclerotic compression fracture of the T12 vertebral body unchanged in appearance from the previous CT examination. There has been interval shortening of the T8 vertebral body with sclerotic change relative to the most recent CT examination. There is no retropulsion of fragments. Degenerative changes include loss of intervertebral disc height. The remaining visualized bones are otherwise intact and appropriately aligned. The upper portion of the patient's aortic stent graft is partly visualized unchanged from prior imaging. There is diffuse centrilobular emphysematous changes of the lungs. IMPRESSION: Relative to the most recent CT examination there has been interval compression fracture of the T8 vertebral body. The T12 vertebral body fracture has remained stable.
[2017-10-04] MEDS: Pantoprazole IV* 40 MG IV SCH (20:09)
--- NOTE | 2017-10-04 22:53 | CONS ---
PULMONARY CONSULTATION REPORT: DATE OF CONSULT: 10/04/17 CONSULTATION REQUESTED BY: Kirsten Squires NP REASON FOR CONSULT: Evaluation of COPD. HISTORY OF PRESENT ILLNESS: The patient is an 81-year-old lady with a history of hyperlipidemia, hypertension, hypothyroidism, anxiety, COPD, diverticulosis, AAA, status post repair, who presented to the emergency room for evaluation of pain that has affected her left shoulder, left chest and abdomen. She has been undergoing extensive workup of the pain, which included abdominal and chest and pelvic CTA, which was personally reviewed by me and with the patient today - the patient with coarsening of interstitium and patchy airspace opacities with no other abnormalities. She was noted to have endovascular stent with no acute CT findings in abdominal and pelvis and found to have chronic T12 compression deformity. The patient continued to have abdominal pain, constipation was suspected as the reason. Abdominal x-ray showed no acute findings. She also underwent thoracic spine CT, which is pending at this time. The patient is a poor historian, unable to provide much information regarding her pain. Her symptoms are very vague. The patient reports having history of COPD in the past. She also reports recent history of herpes zoster and also reports a fall a few months ago, had MRI in [place]. She has been on O2 for her COPD, requiring increased O2 from 2.5 L at baseline to 8 L currently. She also has a history of diverticulosis in the past and also has a history of constipation. She had 1 episode of V-tach while sleeping, echocardiogram showed good ejection fraction at 65% without any significant wall motion or valvular abnormalities. She has a history of AAA, underwent endograft repair in 2013. Pulmonary consultation was requested for evaluation of COPD. The patient is seen and examined at bedside. The patient denies nausea, vomiting, diarrhea or fever. She has chronic cough and sputum production that is unchanged. The patient denies significant change in her breathing. She was on 3 L on arrival in the ED with sats around 91%, which gradually worsened, and she is currently on high flow at 8 L per minute. She also received IV steroids, neb treatments, IV Levaquin. The patient is currently on nebulizers and Levaquin. PAST MEDICAL HISTORY: 1. Hyperlipidemia. 2. Hypertension. 3. Hypothyroidism. 4. Anxiety. 5. COPD, on home O2, 2 L at home. 6. Diverticulosis. 7. Status post appendectomy. 8. Status post hysterectomy. 9. Status post cholecystectomy. 10. Status post cataract surgery. 11. AAA repair at [facility] in 2013. MEDICATION LIST: 1. Aspirin 325 mg. 2. Atorvastatin 10 mg. 3. Furosemide 40 mg. 4. Prednisone 10 mg. ALLERGIES: PENICILLIN, hives. FAMILY HISTORY: COPD. SOCIAL HISTORY: Smoker since 10 years old. No history of drug abuse or alcohol abuse. Occasionally drinks of a glass of wine. REVIEW OF SYSTEMS: All 14 systems were reviewed and as per HPI. PHYSICAL EXAM: The patient is in bed, in no apparent distress. Vital Signs: Temperature 98, pulse 95 beats per minute, respiratory rate 24 per minute, O2 sat 92% on 4 L currently, blood pressure 137/78. HEENT: Pupils are equal, reactive to light. Mucous membranes moist. Lungs: Diminished air entry bilaterally, no wheezes. Cardiovascular: S1, S2 present, regular. Abdomen: Soft, nontender, nondistended. Bowel sounds present. Extremities: Normal range of motion. No edema. Neuro: No focal deficits. DIAGNOSTIC STUDIES/LAB DATA: WBC 8.9, hemoglobin 14.1, hematocrit 41, platelet count 229. Sodium 138, potassium 3.7, chloride 94, bicarb 39, BUN 20, creatinine 0.8. Lactic acid 1.0. CRP within normal limits. Total protein slightly low at 5.8, normal albumin. TSH is within normal limits. CT of the chest as described above in HPI. IMPRESSION AND RECOMMENDATIONS: 81-year-old female with a history of chronic obstructive pulmonary disease, on home O2, admitted with abdominal pain and chest pain of unclear etiology. Pulmonary consultation was requested given the history of chronic obstructive pulmonary disease and increasing O2 requirements. The patient with normal O2 requirement when she came in at 2 to 3 L, at one point required 8 L, currently coming down to 4 L. The patient might be having splinting because of underlying pain. CT suggestive of emphysematous changes bilaterally and prominence of interstitium, probably from prior smoking history. Continue with nebulizers. Would recommend incentive spirometry and bronchodilators q.4 hours. Can start tapering down the prednisone and she does not need 60 mg. D-dimer is elevated, however no evidence of pulmonary embolism was seen. No other alternative etiology. Thank you for allowing me to participate in the care of your patient. Will follow up with you. [id number]/[facility] #: [id number] JHONNY
[2017-10-05] MEDS: Morphine VIAL* 4 MG/ML VIAL (1 ml vial) IV PRN ×3 (00:19→15:10)
[2017-10-05] MEDS: Heparin VIAL(*) 5000 UNITS/ML VIAL (FIVE THOUSAND) SUBCUT SCH ×3 (05:28→21:13)
--- NOTE | 2017-10-05 08:42 | PN ---
Subjective Date of Service: 10/05/17 Interval History: Patient seen and examined at bedside. Denies fever, chills, shortness of breath , chest discomfort, N/V/D. Pt stats that she continues to have pain that starts in her epigastric area and radiates to her back. She also reports feeling like she is unable to catch her breath at times. Pt is anxious to get home but understands that we need to titrate her oxygen and she needs to see neurosurgery. Pt states that she has "2 belly buttons" and "1 leaks". Distal "belly button" with "horn like skin tag present". Family History: Unchanged from Admission Social History: Unchanged from Admission Past Medical History: Unchanged from Admission Objective Active Medications: Acetaminophen (Tylenol Tab*) 650 mg PO Q6H PRN Reason: pain/fever Albuterol/Ipratropium (Duoneb (Albuterol 2.5 Mg/Ipratropium 0.5 Mg)) 1 neb INH [id number] AWAKE PRICILA Alprazolam (Xanax Tab*) 0.25 mg PO BID PRN Reason: ANXIETY Aspirin (Aspirin Ec Tab*) 81 mg PO DAILY PRICILA Atorvastatin Calcium (Lipitor*) 20 mg PO DAILY PRICILA Docusate Sodium (Colace Cap*) 100 mg PO BID PRICILA Furosemide (Lasix Tab*) 40 mg PO DAILY PRICILA Gabapentin (Neurontin Cap(*)) 100 mg PO BID PRICILA Guaifenesin (Mucinex*) 1,200 mg PO BID PRICILA Heparin Sodium (Porcine) (Heparin Vial(*)) 5,000 units SUBCUT Q8HR PRICILA Levofloxacin (Levaquin Tab*) 250 mg PO Q24H PRICILA Stop: 10/05/17 08:59 Magnesium Hydroxide (Milk Of Magncalvin Liq*) 30 ml PO BID PRN Reason: CONSTIPATION Melatonin (Melatonin) 3 mg PO BEDTIME PRN Reason: SLEEP Morphine Sulfate (Morphine Vial*) 4 mg IV Q3H PRN Reason: SEVERE PAIN Nystatin (Nystatin Top Powder*) 1 applic TOPICAL TID PRICILA Pantoprazole Sodium (Protonix Iv*) 40 mg IV Q24H PRICILA Polyethylene Glycol/Electrolytes (Miralax*) 17 gm PO 0801,2100 PRICILA Potassium Chloride (Klor Con Er Tab*) 20 meq PO BID PRICILA Prednisone (Deltasone Tab*) 40 mg PO DAILY PRICILA Prochlorperazine Edisylate (Compazine Inj*) 5 mg IV Q6H PRN Reason: NAUSEA/ VOMITING Sodium Biphosphate/Sodium Phosphate (Fleet Enema*) 1 bottle [place] DAILY PRN Reason : CONSTIPATION Sodium Chloride (Sodium Chloride 0.65% Nasal [place]*) 1 spray BOTH NARES Q4H PRN Reason: CONGESTION Vital Signs - 8 hr 10/05/17 10/05/17 10/05/17 00:57 01:44 03:16 Temperature 97.8 F Pulse Rate 62 Respiratory 18 16 16 Rate Blood Pressure 148/82 (mmHg) O2 Sat by Pulse 96 Oximetry Oxygen Devices in Use Now: High Flow Nasal Cannula - 5 L Appearance: NAD, sitting up in a chair Ears/Nose/Mouth/Throat: Mucous Membranes Moist Respiratory: Symmetrical Chest Expansion and Respiratory Effort, - - Insp wheezing bilateral Cardiovascular: NL Sounds; No Murmurs; No JVD, RRR Extremities: No Edema, - - Tenderness with palpation to T spine Skin: No Rash or Ulcers Neurological: Alert and Oriented x 3, NL Muscle Strength and Tone Lines/Tubes/Other Access: Clean, Dry and Intact Peripheral IV - site benign Nutrition: Taking PO's Result Diagrams: 10/03/17 06:45 10/01/17 06:54 Additional Lab and Data: . Microbiology and Other Data: Microbiology 09/27/17 05:20 Aerobic Blood Culture - Preliminary Blood Venous No Growth Day 3 Anaerobic Blood Culture - Preliminary No Growth Day 3 09/27/17 05:20 Aerobic Blood Culture - Preliminary Blood Venous No Growth Day 3 Anaerobic Blood Culture - Preliminary No Growth Day 3 Assess/Plan/Problems-Billing Assessment: Mrs Saucedo is an 81yo F with PMH of HLD, HTN, hypothyroidism, anxiety, COPD on home O2 at night, AAA s/p repair, herpes zoster, diverticulosis, s/p cholecystectomy and appendectomy, who presented to ED with c/o chest, back, and abdominal pain, found to have severe constipation. - Patient Problems (1) COPD exacerbation Code(s): J44.1 - CHRONIC OBSTRUCTIVE PULMONARY DISEASE W (ACUTE) EXACERBATION SNOMED Code(s): 406603731 Comment: - With acute on chronic hypoxic respiratory failure, Pt uses O2 at 2.5 L at home and is now up to 5L via highflow NC - Will work to wean O2 today with O2 sat goal 88-92% - Her abdominal discomfort also limits her inspiratory effort - Chest xray without acute findings - Continue steroids (taper), bronchodilators (OTC), Levofloxacin (day 3/3), and Mucinex - Continue flutter valve - Pulmonology consult, input appreciated (2) T12 compression fracture Code(s): S22.080A - WEDGE COMPRESSION FRACTURE OF T11-T12 VERTEBRA, INIT SNOMED Code(s): 989880466 Comment: - Known since 08/2016 - Suspect this may be causing most of her pain - Increased compression on CTA - T spine CT shows new T8 fracture - Neurosurgery consult, pending (3) Abdominal pain Code(s): R10.9 - UNSPECIFIED ABDOMINAL PAIN SNOMED Code(s): 23350497 Comment: - Improving - CTA was negative for dissection, no acute abnormalities of the abd/pelvis were seen. - Initially suspected her pain was secondary to constipation - GI consult, input appreciated - ABD xray without acute findings - Continue bowel regimen (4) Chest pain Code(s): R07.9 - CHEST PAIN, UNSPECIFIED SNOMED Code(s): 47132778 Comment: - Suspect secondary to post herpetic pain and T8/12 fractures - Serial troponins were negative and EKG showed no acute ischemic changes. CTA negative for PE/aortic aneurysm/dissection - Continue Gabapentin, Aspirin and Atorvastatin. Beta-blockers contraindicated due to her severe COPD. - May benefit of stress test when more stable, probably as outpatient (5) V-tach Code(s): I47.2 - VENTRICULAR TACHYCARDIA SNOMED Code(s): 42820343 Comment: - Patient had 10 beats of Vtach, asymptomatic, while sleeping - Potassium - goal >4. Magnesium - goal > 2. - Would avoid beta-blockers due to her COPD - Echo showed EF>65%, with no reported wall motion abnormalities or significant valvular disease. - Continue to monitor (6) AAA (abdominal aortic aneurysm) Code(s): I71.4 - ABDOMINAL AORTIC ANEURYSM, WITHOUT RUPTURE SNOMED Code(s): 091763968 Comment: - Records from [facility] reviewed - Patient had an infrarenal AAA measuring 6.2cm and underwent endovascular ( endograft) repair with a modular bifurcated prosthesis in 2013. (7) HLD (hyperlipidemia) Code(s): E78.5 - HYPERLIPIDEMIA, UNSPECIFIED SNOMED Code(s): 63264432 Comment: - Continue Atorvastatin. (8) Anxiety Code(s): F41.9 - ANXIETY DISORDER, UNSPECIFIED SNOMED Code(s): 19771256 Comment: - Supportive care - Continue home xanax PRN (9) DVT prophylaxis Code(s): LIU2462 - SNOMED Code(s): 076443814 Comment: - SQ heparin (10) Full code status Code(s): Z78.9 - OTHER SPECIFIED HEALTH STATUS SNOMED Code(s): 516833847 Status and Disposition: Inpatient. Discharge to home when medically stable, possibly in the AM.
[2017-10-05] MEDS: Polyethylene Glycol 3350* 17 GM PACKET PO SCH ×2 (09:46→21:24)
[2017-10-05] MEDS: predniSONE TAB* 20 MG PO SCH (09:47)
[2017-10-05] MEDS: guaiFENesin ER TAB 600 MG PO SCH ×3 (09:47→21:25)
[2017-10-05] MEDS: Acetaminophen TAB* 325 MG PO PRN (09:48)
[2017-10-05] MEDS: Furosemide TAB* 40 MG PO SCH (09:48)
[2017-10-05] MEDS: Atorvastatin* 20 MG TAB PO SCH (09:48)
[2017-10-05] MEDS: ALPRAZolam TAB* 0.25 MG PO PRN (09:48)
[2017-10-05] MEDS: Potassium Chlor TAB* 20 MEQ TAB.ER PO SCH ×2 (09:48→21:11)
[2017-10-05] MEDS: Aspirin EC TAB* 81 MG TAB.EC PO SCH (09:49)
[2017-10-05] MEDS: Docusate CAP* 100 MG PO SCH ×2 (09:49→21:10)
[2017-10-05] MEDS: Gabapentin CAP(*) 100 MG PO SCH ×2 (09:49→21:10)
[2017-10-05] MEDS: Nystatin TOP POWDER* 15 GM BTL TOPICAL SCH ×3 (09:50→21:24)
[2017-10-05] MEDS: Albuterol/Ipratropium NEB.SOL* Albuterol 2.5 MG/Ipratropium 0.5 MG 3 ML INH SCH ×5 (12:00→23:44)
--- NOTE | 2017-10-05 15:15 | CONSULT ---
Consult Consult: Neurosurgery Consult Date of Admission: 09/27/17 Date of Consult: 10/05/17 Reason for Consult: T8 and T12 compression fracture Referring Provider: Kirsten Squires NP HPI: This is an 81 year old female with past medical history significant for COPD, HTN, AAA repair who [place] [facility] [place] of [place]. Pain has been present since the end of August and has been worsening since onset. Pain is worse with bending forward and with movements. She has been able to ambulate at baseline ability with assistance of a walker. She presented to the ED because the pain was unmanageable at home. She states that she was evaluated approximately one week ago and was diagnosed with constipation which has since improved although back pain has remained unchanged. She denies pain, numbness and tingling wrapping around he thoracic chest and abdomen. She denies numbness , tingling, weakness and pain in the upper and lower extremities. She reports falling a couple of months ago but does not correlate this to onset of pain. She has a history of T12 fracture. She also has recent history of Shingles. Thoracic CT was obtained for better evaluation of the fracture and was reviewed today. Past Medical History: 1. HTN 2. Hyperlipidemia 3. Hypothyroidism 4. COPD 5. Anxiety 6. Compression fracture T8 and T12 7. Diverticulosis Past Surgical History: 1. Appendectomy 2. Cholecystectomy 3. Hysterectomy 4. Cataract extraction 5. AAA repair- [facility] 2013 Home Medications: 1. Aspirin EC TAB* [Ecotrin EC TAB*] 325 mg PO DAILY 06/30/12 [History Confirmed 09/27/17] 2. Atorvastatin* [Lipitor*] 20 mg PO DAILY 06/30/12 [History Confirmed 09/27/17] 3. Furosemide TAB* [Lasix TAB*] 40 mg PO DAILY 09/27/17 [History Confirmed 09/27] 4. predniSONE TAB* [Deltasone 10 MG TAB*] 10 mg PO DAILY 09/27/17 [History Confirmed 09/27/17] 5. ALPRAZolam TAB* [Xanax TAB*] 0.25 mg PO Q8H PRN 10/01/17 [History Confirmed 10/01/17] Allergies: 1. Penicillins Social History: Patient is a current smoker. Occasionally consumes alcohol. ROS: Full ROS completed. Pertinent findings stated in HPI and all others negative. Physical Exam: Vital Signs: Temp Pulse Resp BP Pulse Ox 98.4 F 83 22 113/55 90 10/05/17 11:28 10/05/17 11:28 10/05/17 15:10 10/05/17 11:28 10/05/17 14:48 General: Alert and oriented to person, place and date. Sitting up in chair. HEENT: Head is normocephalic and atraumatic. PERRL, EOMI, sclerae anicteric, glasses in place. Gross hearing intact. Moist mucus membranes. Neck: No obvious deformity, nontender to palpation. CV: Radial and pedal pulses 2+ and equal, no pedal edema. Lungs: Breathing is moderately labored, O2 via NC in place. Abdomen: The abdomen is obese, soft, nontender and nondistended. Multiple areas of ecchymosis. Neuro: CN II-XII intact, Speech is clear, answers questions appropriately. Strength 5/5 in upper and lower extremities bilaterally. Sensation intact throughout. Biceps reflex 2+ bilaterally. Patellar reflex 2+ bilaterally. Hoffmans negative. Tenderness to palpation of the thoracic spine and paraspinal muscles. Imagin. CT thoracic spine on 10/04/17 shows old T12 compression fracture and new T8 compression fracture. Assessment and Plan: This is an 81 year old female with new T8 compression fracture on CT thoracic spine. Neuro intact. I have discussed CT findings with the patient and recommend conservative treatment including pain management. Surgical intervention is not recommended. We discussed expected recovery and healing time for the fracture. She will follow up in office in 3-4 weeks. This case was discussed with Dr. Mahoney who also reviewed imaging.
[2017-10-05] MEDS: Pantoprazole IV* 40 MG IV SCH (19:49)
[2017-10-06] MEDS: Albuterol/Ipratropium NEB.SOL* Albuterol 2.5 MG/Ipratropium 0.5 MG 3 ML INH SCH ×5 (03:01→20:33)
[2017-10-06] MEDS: Morphine VIAL* 4 MG/ML VIAL (1 ml vial) IV PRN ×2 (03:20→23:49)
[2017-10-06] MEDS: Heparin VIAL(*) 5000 UNITS/ML VIAL (FIVE THOUSAND) SUBCUT SCH ×3 (05:35→21:41)
[2017-10-06] MEDS: Docusate CAP* 100 MG PO SCH ×2 (09:49→20:56)
[2017-10-06] MEDS: Aspirin EC TAB* 81 MG TAB.EC PO SCH (09:49)
[2017-10-06] MEDS: guaiFENesin ER TAB 600 MG PO SCH ×2 (09:49→21:01)
[2017-10-06] MEDS: Furosemide TAB* 40 MG PO SCH (09:50)
[2017-10-06] MEDS: Potassium Chlor TAB* 20 MEQ TAB.ER PO SCH ×2 (09:50→21:01)
[2017-10-06] MEDS: Atorvastatin* 20 MG TAB PO SCH (09:50)
[2017-10-06] MEDS: Gabapentin CAP(*) 100 MG PO SCH ×2 (09:50→21:01)
[2017-10-06] MEDS: predniSONE TAB* 20 MG PO SCH (09:50)
[2017-10-06] MEDS: Nystatin TOP POWDER* 15 GM BTL TOPICAL SCH ×3 (09:51→21:02)
[2017-10-06] MEDS: Polyethylene Glycol 3350* 17 GM PACKET PO SCH ×2 (10:03→20:55)
--- NOTE | 2017-10-06 13:54 | PN ---
Progress Note - Progress Note Date of Service: 10/06/17 - Pulm f/u Note: Pt seen and examined at bedside. Pt reports feeling better. O2 sats dropped when she took off O2 to ambulate to bathroom. Recovered with O2. Pain is better controlled Active Medications Generic Name Dose Route Start Last Admin Trade Name Freq PRN Reason Stop Dose Admin Acetaminophen 650 mg 09/27/17 08:26 10/05/17 09:48 Tylenol Tab* PO 650 mg Q6H PRN Administration pain/fever Albuterol/Ipratropium 1 neb 10/05/17 11:00 10/06/17 11:34 Duoneb (Albuterol 2.5 Mg/Ipratropium 0.5 Mg) INH 1 neb [id number] AWAKE PRICILA Administration Alprazolam 0.25 mg 10/01/17 13:50 10/05/17 09:48 Xanax Tab* PO 0.25 mg BID PRN Administration ANXIETY Aspirin 81 mg 10/02/17 09:00 10/06/17 09:49 Aspirin Ec Tab* PO 81 mg DAILY PRICILA Administration Atorvastatin Calcium 20 mg 09/27/17 09:00 10/06/17 09:50 Lipitor* PO 20 mg DAILY PRICILA Administration Docusate Sodium 100 mg 09/27/17 21:00 10/06/17 09:49 Colace Cap* PO 100 mg BID PRICILA Administration Furosemide 40 mg 09/27/17 09:00 10/06/17 09:50 Lasix Tab* PO 40 mg DAILY PRICILA Administration Gabapentin 100 mg 09/28/17 09:00 10/06/17 09:50 Neurontin Cap(*) PO 100 mg BID PRICILA Administration Guaifenesin 1,200 mg 10/03/17 09:00 10/06/17 09:49 Mucinex* PO 600 mg BID PRICILA Administration Heparin Sodium (Porcine) 5,000 units 09/27/17 14:00 10/06/17 05:35 Heparin Vial(*) SUBCUT 5,000 units Q8HR PRICILA Administration Magnesium Hydroxide 30 ml 09/27/17 17:35 09/28/17 21:16 Milk Of Magnesia Liq* PO 30 ml BID PRN Administration CONSTIPATION Melatonin 3 mg 09/29/17 03:43 Melatonin PO BEDTIME PRN SLEEP Morphine Sulfate 4 mg 09/27/17 08:26 10/06/17 03:20 Morphine Vial* IV 4 mg Q3H PRN Administration SEVERE PAIN Nystatin 1 applic 10/02/17 21:00 10/06/17 09:51 Nystatin Top Powder* TOPICAL 1 applic TID PRICILA Administration Pantoprazole Sodium 40 mg 09/30/17 20:00 10/05/17 19:49 Protonix Iv* IV 40 mg Q24H PRICILA Administration Polyethylene Glycol/Electrolytes 17 gm 10/01/17 08:01 10/06/17 10:03 Miralax* PO 17 gm 0801,2100 PRICILA Administration Potassium Chloride 20 meq 09/30/17 21:00 10/06/17 09:50 Klor Con Er Tab* PO 20 meq BID PRICILA Administration Prednisone 40 mg 10/05/17 09:00 10/06/17 09:50 Deltasone Tab* PO 40 mg DAILY PRICILA Administration Prochlorperazine Edisylate 5 mg 09/27/17 08:29 Compazine Inj* IV Q6H PRN NAUSEA/VOMITING Sodium Biphosphate/Sodium Phosphate 1 bottle 09/27/17 17:35 09/28/17 14:20 Fleet Enema* MS 1 bottle DAILY PRN Administration CONSTIPATION Sodium Chloride 1 spray 10/01/17 14:42 10/06/17 09:53 Sodium Chloride 0.65% Nasal [place]* BOTH NARES 1 spray Q4H PRN Administration CONGESTION Vital Signs Temp Pulse Resp BP Pulse Ox 98.7 F 80 17 103/89 88 10/06/17 11:15 10/06/17 11:36 10/06/17 11:36 10/06/17 11:15 10/06/17 11:36 O/E: Obese f in NAD HEENT: PERRLA, No JVD Lungs:Distant breath sounds, scaterred wheeze CVS: S1, S2 + Abd: Obese , BS+ Ext: Normal ROM Skin: No rash Neuro: NO focal defecits Laboratory Results - last 24 hr 10/07/17 06:08 Sodium 138 Potassium 5.1 H Chloride 96 L Carbon Dioxide 38 H Anion Gap 4 BUN 33 H Creatinine 1.04 H Est GFR ( Amer) 61.2 Est GFR (Non-Af Amer) 50.6 BUN/Creatinine Ratio 31.7 H Glucose 89 Calcium 9.0 I/R: 81 y o f, smoker with h/o COPD with acute COPD exacerbation, worsening hypoxia Pt with basal atlectasis sec to splinting from pain resulting in worsening hypoxia O2 sats improving, FiO2 requirements coming down C/w steroid taper c/w bronchodilators Ambulate as tolerated Pain control PFTs as out pt Will f/u as out pt D/c planning
[2017-10-06] MEDS: ALPRAZolam TAB* 0.25 MG PO PRN (14:42)
[2017-10-06] MEDS: Magnesium Hydroxide LIQ* 30 ML UDC PO PRN (14:43)
--- NOTE | 2017-10-06 16:21 | PN ---
Subjective Date of Service: 10/06/17 Interval History: On 5L o2 at rest Anxious to go home but reports SOB walking to bathroom +cough Feels closer to baseline Family History: Unchanged from Admission Social History: Unchanged from Admission Past Medical History: Unchanged from Admission Objective Active Medications: Acetaminophen (Tylenol Tab*) 650 mg PO Q6H PRN PRN Reason: pain/fever Last Admin: 10/05/17 09:48 Dose: 650 mg Albuterol/Ipratropium (Duoneb (Albuterol 2.5 Mg/Ipratropium 0.5 Mg)) 1 neb INH [id number] AWAKE [facility] Last Admin: 10/06/17 15:07 Dose: 1 neb Alprazolam (Xanax Tab*) 0.25 mg PO BID PRN PRN Reason: ANXIETY Last Admin: 10/06/17 14:42 Dose: 0.25 mg Aspirin (Aspirin Ec Tab*) 81 mg PO DAILY [facility] Last Admin: 10/06/17 09:49 Dose: 81 mg Atorvastatin Calcium (Lipitor*) 20 mg PO DAILY [facility] Last Admin: 10/06/17 09:50 Dose: 20 mg Docusate Sodium (Colace Cap*) 100 mg PO BID [facility] Last Admin: 10/06/17 09:49 Dose: 100 mg Furosemide (Lasix Tab*) 40 mg PO DAILY [facility] Last Admin: 10/06/17 09:50 Dose: 40 mg Gabapentin (Neurontin Cap(*)) 100 mg PO BID [facility] Last Admin: 10/06/17 09:50 Dose: 100 mg Guaifenesin (Mucinex*) 1,200 mg PO BID [facility] Last Admin: 10/06/17 09:49 Dose: 600 mg Heparin Sodium (Porcine) (Heparin Vial(*)) 5,000 units SUBCUT Q8HR [facility] Last Admin: 10/06/17 14:43 Dose: 5,000 units Magnesium Hydroxide (Milk Of Magnesia Liq*) 30 ml PO BID PRN PRN Reason: CONSTIPATION Last Admin: 10/06/17 14:43 Dose: 30 ml Melatonin (Melatonin) 3 mg PO BEDTIME PRN PRN Reason: SLEEP Morphine Sulfate (Morphine Vial*) 4 mg IV Q3H PRN PRN Reason: SEVERE PAIN Last Admin: 10/06/17 03:20 Dose: 4 mg Nystatin (Nystatin Top Powder*) 1 applic TOPICAL TID [facility] Last Admin: 10/06/17 14:45 Dose: 1 applic Pantoprazole Sodium (Protonix Iv*) 40 mg IV Q24H [facility] Last Admin: 10/05/17 19:49 Dose: 40 mg Polyethylene Glycol/Electrolytes (Miralax*) 17 gm PO 0801,2100 [facility] Last Admin: 10/06/17 10:03 Dose: 17 gm Potassium Chloride (Klor Con Er Tab*) 20 meq PO BID [facility] Last Admin: 10/06/17 09:50 Dose: 20 meq Prednisone (Deltasone Tab*) 40 mg PO DAILY [facility] Last Admin: 10/06/17 09:50 Dose: 40 mg Prochlorperazine Edisylate (Compazine Inj*) 5 mg IV Q6H PRN PRN Reason: NAUSEA/VOMITING Sodium Biphosphate/Sodium Phosphate (Fleet Enema*) 1 bottle [place] DAILY PRN PRN Reason: CONSTIPATION Last Admin: 09/28/17 14:20 Dose: 1 bottle Sodium Chloride (Sodium Chloride 0.65% Nasal [place]*) 1 spray BOTH NARES Q4H PRN PRN Reason: CONGESTION Last Admin: 10/06/17 09:53 Dose: 1 spray Vital Signs - 8 hr 10/06/17 10/06/17 10/06/17 09:50 11:15 11:36 Temperature 98.7 F Pulse Rate 95 80 Respiratory 20 20 17 Rate Blood Pressure 103/89 (mmHg) O2 Sat by Pulse 88 Oximetry 10/06/17 10/06/17 10/06/17 14:42 14:43 15:09 Temperature Pulse Rate 91 Respiratory 22 22 17 Rate Blood Pressure (mmHg) O2 Sat by Pulse 90 Oximetry Oxygen Devices in Use Now: Nasal Cannula - 5L Appearance: stated age, NAD Eyes: No Scleral Icterus, PERRLA Ears/Nose/Mouth/Throat: NL Teeth, Lips, Gums, Clear Oropharnyx Neck: NL Appearance and Movements; NL JVP, Trachea Midline Respiratory: Symmetrical Chest Expansion and Respiratory Effort, - - diffuse wheeze b/l Cardiovascular: RRR Abdominal: NL Sounds; No Tenderness; No Distention, No Hepatosplenomegaly Extremities: - - 1+ LE edema Neurological: Alert and Oriented x 3 Result Diagrams: 10/03/17 06:45 10/01/17 06:54 Additional Lab and Data: . Microbiology and Other Data: Microbiology 09/27/17 05:20 Aerobic Blood Culture - Preliminary Blood Venous No Growth Day 3 Anaerobic Blood Culture - Preliminary No Growth Day 3 09/27/17 05:20 Aerobic Blood Culture - Preliminary Blood Venous No Growth Day 3 Anaerobic Blood Culture - Preliminary No Growth Day 3 Assess/Plan/Problems-Billing Assessment: Mrs Saucedo is an 81yo F with PMH of HLD, HTN, hypothyroidism, anxiety, COPD on home O2 at night, AAA s/p repair, herpes zoster, diverticulosis, s/p cholecystectomy and appendectomy, who presented to ED with c/o chest, back, and abdominal pain, found to have severe constipation and hypoxic respiratory failure in setting of COPD exacerbation - Patient Problems (1) COPD exacerbation Comment: - With acute on chronic hypoxic respiratory failure, Pt uses O2 at 2.5 L at home and is now up to 5L via highflow NC - weaning O2 - goal 88-92% - Continue steroids (taper), bronchodilators (OTC), Levofloxacin (day 78 days last dose 10/05), and Mucinex - Continue flutter valve - Pulmonology consult, input appreciated (2) T12 compression fracture Comment: - Known since 08/2016 - Suspect this may be causing most of her pain - Increased compression on CTA - T spine CT shows new T8 fracture - Neurosurgery consult appreciated - f/u as outpatient, no surgical intervention (3) Abdominal pain Comment: - Improved - CTA was negative for dissection, no acute abnormalities of the abd/pelvis were seen. - suspect her pain was secondary to constipation v vertebral fracture - Continue bowel regimen (4) Chest pain Comment: - Suspect secondary to post herpetic pain and T8/12 fractures - Serial troponins were negative and EKG showed no acute ischemic changes. CTA negative for PE/aortic aneurysm/dissection - Continue Gabapentin, Aspirin and Atorvastatin. -hold Beta-blockers 2/2 to her severe COPD. (5) V-tach Comment: - Patient had 10 beats of Vtach this stay, asymptomatic - Potassium - goal >4. Magnesium - goal > 2. - Would avoid beta-blockers due to her COPD - Echo showed EF>65%, with no reported wall motion abnormalities or significant valvular disease. - Continue to monitor (6) Anxiety Comment: - Supportive care - Continue home xanax PRN (7) DVT prophylaxis Comment: - SQ heparin Status and Disposition: Inpatient. Discharge to home when medically stable
[2017-10-06] MEDS: Pantoprazole IV* 40 MG IV SCH (21:03)
[2017-10-07] MEDS: Albuterol/Ipratropium NEB.SOL* Albuterol 2.5 MG/Ipratropium 0.5 MG 3 ML INH SCH ×4 (00:20→11:04)
[2017-10-07] MEDS: Heparin VIAL(*) 5000 UNITS/ML VIAL (FIVE THOUSAND) SUBCUT SCH ×2 (05:41→18:15)
[2017-10-07] MEDS: Morphine VIAL* 4 MG/ML VIAL (1 ml vial) IV PRN ×2 (05:46→10:01)
[2017-10-07 06:39] LABS: EGFR Non-African American 50.6 (>60)
[2017-10-07] MEDS: Atorvastatin* 20 MG TAB PO SCH (10:01)
[2017-10-07] MEDS: Gabapentin CAP(*) 100 MG PO SCH (10:01)
[2017-10-07] MEDS: Docusate CAP* 100 MG PO SCH (10:01)
[2017-10-07] MEDS: Aspirin EC TAB* 81 MG TAB.EC PO SCH (10:02)
[2017-10-07] MEDS: Furosemide TAB* 40 MG PO SCH (10:02)
[2017-10-07] MEDS: guaiFENesin ER TAB 600 MG PO SCH (10:02)
[2017-10-07] MEDS: predniSONE TAB* 20 MG PO SCH (10:02)
[2017-10-07] MEDS: Polyethylene Glycol 3350* 17 GM PACKET PO SCH (10:03)
[2017-10-07] MEDS: Nystatin TOP POWDER* 15 GM BTL TOPICAL SCH ×2 (13:00→18:14)
[2017-10-07] MEDS ORDERED: Albuterol 2.5 MG/3 ML NEB.SOL* (0.083%) INH SCH (13:00)
[2017-10-07 14:42] VITALS: BP 124/37
--- NOTE | 2017-10-08 00:56 | DS ---
CC: Dr. Chappell; Dr. Lucinda Franz * DISCHARGE SUMMARY: DATE OF ADMISSION: 09/27/17 DATE OF DISCHARGE: 10/07/17 PRIMARY CARE PROVIDER: Dr. Chappell. PRIMARY DIAGNOSES: 1. Severe constipation. 2. New T8 compression fracture. 3. Chronic obstructive pulmonary disease exacerbation with acute on chronic respiratory failure. MEDICATIONS ON DISCHARGE: 1. Alprazolam 0.25 mg every 8 hours as needed. 2. Aspirin 325 mg daily. 3. Atorvastatin 20 mg daily. 4. Furosemide 40 mg daily. 5. Prednisone 40 mg taper over the next 15 days. 6. Percocet 5/325 one to two tabs every 4 hours as needed for pain, dispensed 45 tabs. 7. Saline nasal spray 1 spray both nares every 4 hours as needed. 8. MiraLAX 17 g twice daily. 9. Milk of magnesia 30 mL twice daily as needed. 10. Gabapentin 100 mg twice daily. 11. Docusate 100 mg twice daily. PERTINENT LABORATORY DATA: Troponin I 0.00 on 2 consecutive checks. TSH 2.47. All cultures negative. PERTINENT IMAGING STUDIES: Transthoracic echocardiogram, impression: Technically limited secondary to COPD, mild concentric left ventricular hypertrophy, left ventricular ejection fraction was approximately 65%. No significant valvular diseases from limited available views. There is trace TR and trace AR. Chest, abdomen, and pelvis CTA, impression: No CT evidence of acute pulmonary embolic disease. The lungs are clear. No CT abnormalities of the endovascular stent graft. No acute CT abnormalities of the abdomen or pelvis. Chronic T12 compression deformity. Thoracic spine CT, impression: Relative to the most recent CT examination, there has been interval compression fracture of the T8 vertebral body. The T12 vertebral body fracture has remained stable. HISTORY OF PRESENT ILLNESS AND HOSPITAL COURSE: This is an 81-year-old female with past medical history as outlined in the history of present illness on the day of admission presented to the hospital on 09/27/17 with chief complaint of pain, found on admission to have increased oxygen needs with increased work of breathing. Ultimately, her pain was thought to be secondary to severe constipation for which she received aggressive bowel regimen. Additionally, further interrogation identified a new T8 fracture, which was thought to be contributing to her pain as well as respiratory splinting. She was started on morphine with good relief. She was thought to be suffering from COPD exacerbation on admission, received 7 days of levofloxacin as well as placed on IV steroids to titrate it down to 40 mg prednisone prior to discharge. She will continue titration on discharge from 40 mg to 10 mg before discontinuing over the next 10 days. Oxygen demand decreased, until the day of discharge she was satting 91% on 2.5 liters. She was very anxious to leave. Her lung exam had improved greatly. Prior to discharge she had only scattered wheezes. On the day of discharged much improved from the day prior to discharge. She was see in conjunction with Neurosurgery, who did not think she required additional intervention for her new T8 fracture. She had no neurological deficits. Her abdominal pain improved with aggressive bowel regimen as well as control of her pain referred from vertebral fracture. She had chest pain on presentation, negative troponins, and CTA negative for pulmonary embolism. There were no complications during the course of this hospital stay. She was also seen in conjunction with Gastroenterology as well as Pulmonology during the course of this hospital stay. There were no complications during the course of the hospital stay. This is the summary of a complex hospital stay. Please see the complete record for further details. At followup please: 1. The patient should be scheduled for outpatient PFTs. 2. Follow lung exam, extend steroids as necessary. 3. If abdominal pain returns or persists, please consider referral to GI team for further evaluation for EGD. During the course of her hospital stay, she elected not to do EGD . 4. Arrange for followup with Dr. Mahoney in 3 to 4 weeks. 5. No other specific labs or vitals that need followup. Reasons to return to the hospital including but not limited to recurrent or worsening symptoms including work of breathing, increased need for oxygen, chest pain, increased abdominal pain, nausea, vomiting, lightheadedness, loss of consciousness, near loss of consciousness, bleeding from any source discussed with the patient. She acknowledged understanding. TIME SPENT: Greater than 65 minutes were spent on discharge of this patient; greater than half was spent [id number] with the patient. [id number]/[facility] #: [id number] JHONNY
== END 2017-10-07 16:00 | disposition home health service (06) | DRG 190 ==
LOC: ED 04:41 → MED 08:20
PROVIDERS: ADMIT Internal Medicine; ATTEND Internal Medicine
DX: J44.1 Chronic obstructive pulmonary disease with (acute) exacerbation (principal); J96.21 Acute and chronic respiratory failure with hypoxia; M48.54XA Collapsed vertebra, not elsewhere classified, thoracic region, initial encounter for fracture; I47.2 Ventricular tachycardia; F17.210 Nicotine dependence, cigarettes, uncomplicated; K57.90 Diverticulosis of intestine, part unspecified, without perforation or abscess without bleeding; I08.2 Rheumatic disorders of both aortic and tricuspid valves; K59.00 Constipation, unspecified; R07.9 Chest pain, unspecified; F41.0 Panic disorder [episodic paroxysmal anxiety]; E66.9 Obesity, unspecified; E78.5 Hyperlipidemia, unspecified; I10 Essential (primary) hypertension; E03.9 Hypothyroidism, unspecified; Z99.81 Dependence on supplemental oxygen; Z90.49 Acquired absence of other specified parts of digestive tract; Z90.710 Acquired absence of both cervix and uterus; Z88.0 Allergy status to penicillin; Z86.19 Personal history of other infectious and parasitic diseases; Z82.5 Family history of asthma and other chronic lower respiratory diseases; Z72.89 Other problems related to lifestyle; Z79.82 Long term (current) use of aspirin; Z98.51 Tubal ligation status; Z98.42 Cataract extraction status, left eye; Z98.41 Cataract extraction status, right eye; Z23 Encounter for immunization; Z68.33 Body mass index [BMI] 33.0-33.9, adult
CPT/HCPCS: 36415; 71045; 71046; 71275; 72128; 74019; 74174; 80048; 80053; 81003; 83605; 83690; 83735; 83880; 84443; 84484; 85025; 85379; 85610; 86140; 87040; 90732; 93005; 93306; 94640; 99284; 99406; A9270-GY; J1170; J1644; J1956; J2270; J2920; J2930; J7512; Q9967

== ENCOUNTER 2017-12-27 14:33 | Inpatient (IN) | payer MEDICARE ==
[2017-12-27] MEDS ORDERED: Levofloxacin 750 MG IVPREMIX(* 750 MG/150 ML BAG IVPB ONE (15:11)
[2017-12-27] MEDS ORDERED: Cefepime(*) 2 GM in NS 0.9% 50 ML* 50 ML IVPB ONE (15:11)
[2017-12-27] MEDS ORDERED: NS 0.9% 1000 ML*IV.FLUID IV ONE (15:11)
[2017-12-27 15:58] LABS: ABS Basophils 0 10^3/ul (0-0.2); ABS Eosinophils 0.1 10^3/ul (0-0.6); ABS Lymphocytes 0.7 10^3/ul (1.0-4.8); ABS Monocytes 0.6 10^3/ul (0-0.8); ABS Neutrophils 6.7 10^3/ul (1.5-7.7); ABS Nucleated RBC 0 10^3/ul; Eosinophil % 1.7 % (0-6); Hematocrit 38 % (35-47); Hemoglobin 13.3 g/dl (12.0-16.0); Lymphocyte % 8.1 % (25-47); Mean Corpuscular HGB Conc 35 g/dl (31-36); Mean Corpuscular Hemoglobin 35 pg (27-31); Mean Corpuscular Volume 101 fL (80-97); Mean Platelet Volume 8.6 um3 (7.4-10.4); Nucleated Red Blood Cells % 0.1; Platelet Count 207 10^3/ul (150-450); Red Blood Count 3.77 10^6/ul (4.00-5.40); Red Cell Distribution Width 14 % (10.5-15); White Blood Count 8.1 10^3/ul (3.5-10.8)
[2017-12-27 16:09] LABS: INR 1.04 (0.77-1.02)
[2017-12-27 16:17] LABS: EGFR Non-African American 59.7 (>60)
--- NOTE | 2017-12-27 16:27 | ED ---
Shortness of Breath - HPI Summary HPI Summary: Patient is a 82 y/o F BIBA w/ c/o cough, SOB, hot sweats for the past two days. She notes that she is on 2 or 3 L of O2 at home. She denies chest pain. Patient reports that she has been on levofloxacin for the past 5 days for PNA. Room air sat is 83%. On triage, associated severity is rated 8/10, nothing is noted to aggravate/alleviate Sx. EMS gave 20 ga IV in left forearm. Home medications and allergies are reviewed. PMHx of COPD, ELEVATED CHOLESTEROL, HTN, hypothyroid, hysterectomy, bowel resection,hemrrhoidectomy, AAA is noted. - History of Current Complaint Chief Complaint: EDShortnessOfBreath Time Seen by Provider: 12/27/17 15:02 Hx Obtained From: Patient Onset/Duration: Lasting Days - two days, Still Present Timing: Constant Current Severity: Severe - 8/10 Aggrevating Factors: Nothing Alleviating Factors: Nothing - Allergy/Home Medications Allergies/Adverse Reactions: Allergies Allergy/AdvReac Type Severity Reaction Status Date / Time Penicillins Allergy Hives Verified 09/27/17 08:15 Home Medications: Home Medications Albuterol HFA INHALER* [Ventolin HFA Inhaler*] 2 puff INH Q6H PRN 12/27/17 [ History Confirmed 12/27/17] Alendronate (NF) [Fosamax (NF)] 70 mg PO WEEKLY 12/27/17 [History Confirmed ] Atorvastatin* [Lipitor*] 20 mg PO DAILY 12/27/17 [History Confirmed 12/27/17] Budesonide/Formote 160/4.5(NF) [Symbicort 160/4.5 (NF)] 2 puff INH BID 12/27/17 [History Confirmed 12/27/17] Fluticasone NASAL SPRAY 50MCG* [Flonase NASAL SPRAY 50MCG*] 2 spray BOTH NARES DAILY 12/27/17 [History Confirmed 12/27/17] Gabapentin CAP(*) [Neurontin 300 CAP(*)] 300 mg PO TID 12/27/17 [History Confirmed 12/27/17] Levofloxacin TAB* [Levaquin TAB*] 750 mg PO DAILY 12/27/17 [History Confirmed ] Levothyroxine TAB* [Synthroid TAB*] 100 mcg PO QAM 12/27/17 [History Confirmed 12/27/17] Mometasone Furoate [Elocon] 0.1 % TOPICAL DAILY 12/27/17 [History Confirmed ] Potassium Chloride 15 ml PO DAILY WITH MEAL 12/27/17 [History Confirmed 12/27/17 ] oxyCODONE/Acetamin 10/325(NF) [Percocet 10/325 (NF)] 1 tab PO Q4HR PRN 12/27/17 [History Confirmed 12/27/17] predniSONE TAB* [Deltasone 10 MG TAB*] 20 mg PO DAILY 12/27/17 [History Confirmed 12/27/17] PMH/Surg Hx/FS Hx/Imm Hx Endocrine/Hematology History: Reports: Hx Thyroid Disease Denies: Hx Diabetes Cardiovascular History: Reports: Hx Aneurysm, Hx Hypercholesterolemia, Hx Hypertension Denies: Hx Congestive Heart Failure - ? 2000 per pt, no edema, denies s/s receiving visipaque, Hx Pacemaker/ICD Respiratory History: Reports: Hx Chronic Obstructive Pulmonary Disease (COPD), Other Respiratory Problems/Disorders - occassional,exertional sob Denies: Hx Asthma GI History: Denies: Other GI Disorders History: Denies: Hx Kidney Stones, Hx Renal Disease Sensory History: Reports: Hx Contacts or Glasses Denies: Hx Hearing Aid, Hx Hearing Problem, Other Sensory Impairments Opthamlomology History: Reports: Hx Contacts or Glasses Denies: Other Sensory Impairments Neurological History: Reports: Hx Dementia Psychiatric History: Reports: Hx Anxiety, Hx Panic Disorder - A LITTLE - Surgical History Surgery Procedure, Year, and Place: APPY,HYSTERECTOMY,TUBAL LIGATION, LAP SANDHYA, EYELID PARTIAL REMOVAL,throat benign polyp, aortic aneurysm-CLEARED 1.5 PER [facility] SCANNED INTO OTHER OR PROCEDURES. HEMORROIDECTOMY-BILATERAL CATARACTS - Immunization History Immunizations Up to Date: Yes Infectious Disease History: No Infectious Disease History: Denies: Traveled Outside the [place] in Last 30 Days - Family History Known Family History: Negative: Cardiac Disease, Hypertension, Diabetes - Social History Alcohol Use: Rare Substance Use Type: Reports: None Hx Tobacco Use: Yes Smoking Status (MU): Heavy Every Day Tobacco Smoker Type: Cigarettes Length of Time of Smoking/Using Tobacco: 60 years Have You Smoked in the Last Year: Yes Review of Systems Positive: Skin Diaphoresis - hot sweats, per patient Negative: Chest Pain Positive: Shortness Of Breath, Cough All Other Systems Reviewed And Are Negative: Yes Physical Exam - Summary Physical Exam Summary: VITAL SIGNS: Reviewed. GENERAL: Patient is a well-developed and nourished female who is lying comfortable in the stretcher. Patient is on o2, 3 L nasal cannula. HEAD AND FACE: No signs of trauma. No ecchymosis, hematomas or skull depressions. No sinus tenderness. EYES: PERRLA, EOMI x 2, No injected conjunctiva, no nystagmus. EARS: Hearing grossly intact. Ear canals and tympanic membranes are within normal limits. MOUTH: Oropharynx within normal limits. NECK: Supple, trachea is midline, no adenopathy, no JVD, no carotid bruit, no c- spine tenderness, neck with full ROM. CHEST: Symmetric, no tenderness at palpation LUNGS: Clear to auscultation bilaterally. No wheezing. Bilateral crackles are noted. CVS: Regular rate and rhythm, S1 and S2 present, no murmurs or gallops appreciated. ABDOMEN: Soft, non-tender. No signs of distention. No rebound no guarding, and no masses palpated. Bowel sounds are normal. EXTREMITIES: FROM in all major joints, no cyanosis or clubbing. 3+ edema BLE. NEURO: Alert and oriented x 3. No acute neurological deficits. Speech is normal and follows commands. SKIN: Dry and warm Triage Information Reviewed: Yes Vital Signs On Initial Exam: Initial Vitals Temp Pulse Resp BP Pulse Ox 99 F 101 28 123/67 83 12/27/17 14:53 12/27/17 14:53 12/27/17 14:53 12/27/17 14:53 12/27/17 14:53 Vital Signs Reviewed: Yes Diagnostics - Vital Signs Vital Signs Temp Pulse Resp BP Pulse Ox 12/27/17 14:53 99 F 101 28 123/67 83 - Laboratory Lab Results: Lab Results 12/27/17 12/27/17 12/27/17 Range/Units 15:50 15:50 15:50 WBC 8.1 (3.5-10.8) 10^3/ul RBC 3.77 L (4.00-5.40) 10^6/ul Hgb 13.3 (12.0-16.0) g/dl Hct 38 (35-47) % MCV 101 H (80-97) fL MCH 35 H (27-31) pg MCHC 35 (31-36) g/dl RDW 14 (10.5-15) % Plt Count 207 (150-450) 10^3/ul MPV 8.6 (7.4-10.4) um3 Neut % (Auto) 82.5 (38-83) % Lymph % (Auto) 8.1 L (25-47) % [place] % (Auto) 7.3 H (0-7) % Eos % (Auto) 1.7 (0-6) % Baso % (Auto) 0.4 (0-2) % Absolute Neuts (auto) 6.7 (1.5-7.7) 10^3/ul Absolute Lymphs (auto) 0.7 L (1.0-4.8) 10^3/ul Absolute Monos (auto) 0.6 (0-0.8) 10^3/ul Absolute Eos (auto) 0.1 (0-0.6) 10^3/ul Absolute Basos (auto) 0 (0-0.2) 10^3/ul Absolute Nucleated RBC 0 10^3/ul Nucleated RBC % 0.1 ESR Pending INR (Anticoag Therapy) 1.04 H (0.77-1.02) APTT 31.0 (26.0-36.3) seconds Fibrinogen 438.4 H (110.8-404.3) mg/dL Sodium 136 (135-145) mmol/L Potassium 2.9 L (3.5-5.0) mmol/L Chloride 90 L (101-111) mmol/L Carbon Dioxide 38 H (22-32) mmol/L Anion Gap 8 (2-11) mmol/L BUN 8 (6-24) mg/dL Creatinine 0.90 (0.51-0.95) mg/dL Est GFR ( Amer) 72.2 (>60) Est GFR (Non-Af Amer) 59.7 (>60) BUN/Creatinine Ratio 8.9 (8-20) Glucose 99 (70-100) mg/dL Lactic Acid (0.5-2.0) mmol/L Calcium 9.8 (8.6-10.3) mg/dL Total Bilirubin 0.80 (0.2-1.0) mg/dL AST 23 (13-39) U/L ALT 19 (7-52) U/L Alkaline Phosphatase 46 (34-104) U/L Total Creatine Kinase 86 (10-223) U/L Troponin I 0.02 (<0.04) ng/mL C-Reactive Protein 16.82 H (<8.01) mg/L Total Protein 6.6 (6.4-8.9) g/dL Albumin 3.8 (3.2-5.2) g/dL Globulin 2.8 (2-4) g/dL Albumin/Globulin Ratio 1.4 (1-3) 12/27/17 Range/Units 15:50 WBC (3.5-10.8) 10^3/ul RBC (4.00-5.40) 10^6/ul Hgb (12.0-16.0) g/dl Hct (35-47) % MCV (80-97) fL MCH (27-31) pg MCHC (31-36) g/dl RDW (10.5-15) % Plt Count (150-450) 10^3/ul MPV (7.4-10.4) um3 Neut % (Auto) (38-83) % Lymph % (Auto) (25-47) % [place] % (Auto) (0-7) % Eos % (Auto) (0-6) % Baso % (Auto) (0-2) % Absolute Neuts (auto) (1.5-7.7) 10^3/ul Absolute Lymphs (auto) (1.0-4.8) 10^3/ul Absolute Monos (auto) (0-0.8) 10^3/ul Absolute Eos (auto) (0-0.6) 10^3/ul Absolute Basos (auto) (0-0.2) 10^3/ul Absolute Nucleated RBC 10^3/ul Nucleated RBC % ESR INR (Anticoag Therapy) (0.77-1.02) APTT (26.0-36.3) seconds Fibrinogen (110.8-404.3) mg/dL Sodium (135-145) mmol/L Potassium (3.5-5.0) mmol/L Chloride (101-111) mmol/L Carbon Dioxide (22-32) mmol/L Anion Gap (2-11) mmol/L BUN (6-24) mg/dL Creatinine (0.51-0.95) mg/dL Est GFR ( Amer) (>60) Est GFR (Non-Af Amer) (>60) BUN/Creatinine Ratio (8-20) Glucose (70-100) mg/dL Lactic Acid 1.4 (0.5-2.0) mmol/L Calcium (8.6-10.3) mg/dL Total Bilirubin (0.2-1.0) mg/dL AST (13-39) U/L ALT (7-52) U/L Alkaline Phosphatase (34-104) U/L Total Creatine Kinase (10-223) U/L Troponin I (<0.04) ng/mL C-Reactive Protein (<8.01) mg/L Total Protein (6.4-8.9) g/dL Albumin (3.2-5.2) g/dL Globulin (2-4) g/dL Albumin/Globulin Ratio (1-3) Result Diagrams: 12/28/17 05:10 12/28/17 05:10 Lab Statement: Any lab studies that have been ordered have been reviewed, and results considered in the medical decision making process. - Radiology CXR Xray Interpretation: No Acute Changes Radiology Interpretation Completed By: Radiologist - COPD, no active cardiopulmonary disease; this report was reviewed by ED physician. - EKG 1524 Cardiac Rate: NL - rate of 94 bpm EKG Rhythm: Sinus Rhythm EKG Interpretation: no ST elevation Re-Evaluation - Re-Evaluation First Eval Re-Evaluation Time: 17:42 Change: Worse Comment: Reexamination the patient develops some wheezing therefore the patient was given a DuoNeb. Tried to ambulate the patient however the patient is very weak and she is complaining of bilateral lower extremity pain since the patient s legs are always swollen. Second Eval Re-Evaluation Time: 18:10 Comment: Patient informed that she will be admitted; she understands and is agreeable with this plan. Course/Dx - Course Assessment/Plan: This patient is an 82-year-old female who presents to the emergency room with a chief complaint of having shortness of breath, productive cough with yellowish phlegm. The patient was diagnosed with pneumonia for which the patient is taking levofloxacin. However the patient reports that she is feeling worse shortness of breath. The patient takes oxygen at home approximately 2 L and she has increased to [address] elevation of breath. Blood test results without any significant abnormality except for fibrinogen of 438, potassium 2.9, chloride of 90, carbon dioxide 38, CRP of 16.8. Urinalysis negative for UTI. Chest x-ray impression: COPD, No acute Cardiopulmonary pathology. Reexamination the patient develops some wheezing therefore the patient was given a DuoNeb. We tried to ambulate the patient however the patient is very weak and she is complaining of bilateral lower extremity pain since the patients legs are always swollen. Therefore this point I discussed my physical exam, findings and test results with Dr. Alvares from the hospital services were accepted the patient for admission. - Diagnoses Differential Diagnosis/HQI/PQRI: Positive: Bronchitis, CHF, COPD Exacerbation, Pneumonia, Pulmonary Edema Provider Diagnoses: COPD exacerbation, Lower extremity edema - Physician Notifications Discussed Care of Patient With: Nuvia Alvares Time Discussed With Above Provider: 18:05 Instructed by Provider To: Other - Dr. Alvares was consulted on patient's case at 1805; Dr. Alvares accepts patient for [place] [facility] [place] - Sign-Out/Discharge Documenting (check all that apply): Patient Departure - admit - Discharge Plan Condition: Good Disposition: ADMITTED TO [facility] - Billing Disposition and Condition Condition: GOOD Disposition: Admitted to [facility] - Attestation Statements Document Initiated by Jodiibe: Yes Documenting Scribe: Nhan Flores Provider For Whom Tomasze is Documenting (Include Credential): Efra Andres MD Scribe Attestation: INhan, scribed for Efra Andres MD on 12/28/17 at 1635. Scribe Documentation Reviewed: Yes Provider Attestation: The documentation as recorded by the Nhan cordero accurately reflects the service I personally performed and the decisions made by me, Efra Andres MD
[2017-12-27 16:36] LABS: Urine Appearance Clear; Urine Blood Negative (Negative); Urine Color Straw; Urine Ketones Negative (Negative); Urine Protein Negative (Negative); Urine Red Blood Cell Trace(0-2/hpf) (Absent); Urine Specific Gravity 1.005 (1.010-1.030); Urine Urobilinogen Negative (Negative); Urine White Blood Cell Trace(0-5/hpf) (Absent)
--- NOTE | 2017-12-27 16:43 | RAD ---
HISTORY: SOB COMPARISONS: October 02, 2017 VIEWS: 2: Frontal and lateral views of the chest. FINDINGS: CARDIOMEDIASTINAL SILHOUETTE: The cardiomediastinal silhouette is normal. MEHRAN: The mehran are normal. PLEURA: The costophrenic angles are sharp. No pleural abnormalities are noted. LUNG PARENCHYMA: There is hyperinflation with flattening of the diaphragm and expansion of the AP diameter of the chest. ABDOMEN: The upper abdomen is clear. There is no subphrenic gas. BONES AND SOFT TISSUES: There is diffuse osteopenia. There is a chronic compression deformity of the midthoracic spine. OTHER: None. IMPRESSION: COPD. NO ACTIVE CARDIOPULMONARY DISEASE.
[2017-12-27] MEDS ORDERED: Potassium Chlor TAB* 20 MEQ TAB.ER PO ONE (16:51)
[2017-12-27] MEDS ORDERED: Albuterol 2.5 MG/3 ML NEB.SOL* (0.083%) INH ONE (17:05)
[2017-12-27] MEDS ORDERED: Iodixanol* (CONTRAST) 320 MG/ML 100 ML SDV IV ONE (18:10)
[2017-12-27] MEDS ORDERED: Magnesium Sulfate 2 GM IV* 2 GM/50 ML BAG IVPB ONE (18:35)
[2017-12-27] MEDS ORDERED: methylPREDNISolone 125 MG* 2 ML VIAL IV ONE (19:06)
--- NOTE | 2017-12-27 19:08 | RAD ---
EXAM: CT Angiography Chest With Intravenous Contrast CLINICAL HISTORY: 82 years old, female; Signs and symptoms; Dyspnea and shortness of breath; Prior surgery; Surgery date: 6+ months; Surgery type: Aaa repair with stent; Additional info: SOB TECHNIQUE: Axial computed tomographic angiography images of the chest with intravenous contrast using pulmonary embolism protocol. All CT scans at this facility use at least one of these dose optimization techniques: automated exposure control; mA and/or kV adjustment per patient size (includes targeted exams where dose is matched to clinical indication); or iterative reconstruction. MIP reconstructed images were created and reviewed. Coronal and sagittal reformatted images were created and reviewed. CONTRAST: 65 mL of VISI 320 administered intravenously. COMPARISON: CTA C/A/P CTA CHEST/ABD/PEL 09/27/2017 8:41 AM FINDINGS: Pulmonary arteries: No visualized pulmonary embolus. The subsegmental pulmonary arteries are subobtimally demonstrated, and cannot be completely cleared. Aorta: Moderate atherosclerosis. Abdominal aortic stent No thoracic aortic aneurysm. Lungs: Mild centrilobular emphysema without consolidation, effusion or pulmonary edema. Pleural space: Unremarkable. No significant effusion. No pneumothorax. Heart: Moderate coronary artery calcifications. No significant pericardial effusion. No evidence of RV dysfunction. Bones/joints: Chronic compression deformities in the osteopenic spine. No dislocation. Soft tissues: Unremarkable. Lymph nodes: Unremarkable. No enlarged lymph nodes. Other findings: No other acute disease seen. As above. IMPRESSION: 1. No visualized pulmonary embolus. The subsegmental pulmonary arteries are subobtimally demonstrated, and cannot be completely cleared. 2. Mild centrilobular emphysema without consolidation, effusion or pulmonary edema. 3. No other acute disease seen. As above.
[2017-12-27] MEDS ORDERED: Furosemide IV* 10 MG/ML VIAL (40 MG) IV STA (19:14)
[2017-12-27] MEDS ORDERED: Acetaminophen TAB* 325 MG PO PRN (19:55)
[2017-12-27 20:34] LABS: INR 1.14 (0.77-1.02)
[2017-12-27] MEDS: KCL 10 MEQ/50 ML IVPREMIX* 10 MEQ/50 ML BAG IV SCH ×2 (20:35→22:31)
[2017-12-27] MEDS: Gabapentin CAP(*) 300 MG PO SCH ×2 (20:36→20:37)
[2017-12-27] MEDS: Heparin VIAL(*) 5000 UNITS/ML VIAL (FIVE THOUSAND) SUBCUT SCH (20:36)
--- NOTE | 2017-12-27 22:32 | HP ---
CC: Dr. Chappell * ADMISSION HISTORY AND PHYSICAL: DATE OF ADMISSION: 12/27/17 PRIMARY CARE PROVIDER: Dr. Chappell. MY ATTENDING FOR TODAY: Nuvia Alvares DO * (DICTATED BY MARU GOULD NP) CHIEF COMPLAINT: Shortness of breath. HISTORY OF PRESENT ILLNESS: This is an 82-year-old female patient who was admitted back in September of this year with an exacerbation of COPD and also some back pain secondary to compression fractures. The patient stated she was home in her usual state of health. She had gone to see her primary care provider though for an increase in cough. She is oxygen dependent for her COPD at home. At that time, her primary placed her on Levaquin to cover her for a COPD exacerbation. The patient stated that she began becoming more persistently short of breath over the last 24 hours and was brought into the emergency department for evaluation. Upon seeing the patient in the ED, she did receive cefepime, an additional dose of Levaquin and also breathing treatment and we were asked to evaluate for admission for exacerbation of COPD. However, upon my evaluation of the patient, she was in severe respiratory distress. Her O2 saturation dropped to 77% when she had taken off her oxygen. She became moderately confused and desatted. She is tachypneic. She has increased work of breathing and is not faring well. For these reasons, we will be admitting the patient to the ICU for her respiratory distress. PAST MEDICAL HISTORY: Significant for COPD, hyperlipidemia, hypertension, hypothyroidism, anxiety, diverticulosis, AAA that was repaired, and compression fractures of the spine. PAST SURGICAL HISTORY: Significant for appendectomy, hysterectomy, and cholecystectomy. HOME MEDICATIONS: 1. Prednisone 20 mg daily. 2. 15 mL p.o. daily. 3. Percocet 1 tab q.4 hours as needed. 4. Mometasone topical 0.1% topical as needed. 5. Levothyroxine 100 mcg daily. 6. Levaquin 750 mg daily. 7. Gabapentin 300 mg 3 times a day. 8. Lasix 40 mg daily. 9. Fluticasone spray nasal spray daily. 10. Symbicort 2 puffs inhale b.i.d. 11. Atorvastatin 20 mg daily. 12. Alendronate 70 mg p.o. weekly. 13. Alprazolam 0.25 mg q.8 hours as needed. 14. Albuterol inhaler 2 puffs inhale q.6 hours as needed. ALLERGIES: To PENICILLIN, for which she has hives. FAMILY HISTORY: Her father also had COPD. SOCIAL HISTORY: The patient is an active every day smoker, started smoking at age 10 and smokes a minimum of 1 pack a day, sometimes more. Again, she is oxygen dependent at home. CODE STATUS: She is a DNR. She will allow for BiPAP and other noninvasive respiratory measures. She does not wish to have compressions, intubation, or ventilation. Her healthcare proxy is her daughter who is at the bedside during her evaluation. REVIEW OF SYSTEMS: The patient denies any fever, fatigue, or chills. She does complain of acute shortness of breath. She denies chest pain. She does have complaint of pain though in the right upper portion of the back and across the thoracic region of the back. She is also complaining of bipedal edema. She denies any nausea or vomiting. No diarrhea and no other further constitutional complaints. PHYSICAL EXAMINATION GENERAL: Reveals an ill-appearing, frail elderly female, in moderate distress. VITAL SIGNS: Currently, O2 saturation now on 94% Vapotherm. Initially, O2 saturation was 83% on room air upon arrival and desaturation to 77% when she was off O2. Respiratory rate between 26 and 42, blood pressure 128/62, heart rate between 91 and 101. HEENT: The patient is atraumatic, normocephalic. PERRLA with anicteric sclerae. Oral mucosa is dry. Tongue is midline. NECK: Supple. Nontender. No JVD noted. No carotid bruits auscultated. LUNGS: She has very poor air entry. She has bilateral expiratory wheeze. Also , some moderate rhonchi, possibly some coarse rales bilaterally at the bases. Overall, poor breath sounds in general. CARDIOVASCULAR: S1, S2 present. She is mildly tachycardic. Otherwise, rhythm is regular. No murmurs, gallops, or rubs noted. ABDOMEN: Soft, nontender, nondistended. Positive bowel sounds in all 4 quadrants. No organomegaly noted. : Deferred. MUSCULOSKELETAL: There is no clubbing and no cyanosis. She has bipedal edema, +2. She has palpable pedal pulses. Full range of motion, although generally she does appear to becoming more weak. NEUROLOGIC: She is alert and oriented. However, she is having bouts of confusion now, likely secondary to hypoxemia. PSYCHIATRIC: She is cooperative and sometimes appropriate. I think this is because of her current status. She is exhibiting some impulsive behavior. LABORATORY DATA: WBC is 8.1, RBC is 3.77, hemoglobin 13.3, hematocrit 38, platelets 207,000. Sodium 136, potassium 2.9, chloride 90, CO2 of 38. BUN 8, creatinine 0.90. GFR 59.7. Glucose 99. Lactic acid 1.4. Calcium 9.8. Magnesium 1.4, bilirubin 0.80. AST 23, ALT 19, alk phos 46. Troponin is negative at 0.02. CRP is 16.82. BNP at admission was 37 that was prior to fluids. Total protein 6.6, albumin 3.8, procalcitonin is 0.1. INR is 1.04. Urinalysis shows no acute infective process. IMAGING: The patient had chest x-ray at admission which revealed COPD with no active cardiopulmonary disease. CTA of the chest to rule out PE shows no PE. The subsegmental pulmonary arteries are suboptimally demonstrated and cannot be completely cleared. She has mild centrilobular emphysema without consolidation , effusion, or pulmonary edema. There is no other acute disease noted. IMPRESSION AND PLAN: This is an 82-year-old female with severe pulmonary disease who is now presenting with hypoxic hypercarbic respiratory failure. The patient will be admitted to the ICU for diagnoses: 1. Hypoxic respiratory failure, likely secondary to chronic obstructive pulmonary disease exacerbation and current tobacco abuse. The patient has been placed on Vapotherm with good result. At this point, the patient appears more comfortable on the Vapotherm. ABG is currently pending. We would like to keep her saturations above 90% to 92% and titrate Vapotherm to her comfort. I have discussed smoking cessation with the patient. She has low motivation for cessation of smoking. I have discussed respiratory treatments with respiratory therapist. She will be continued on DuoNeb for now, albuterol as needed. She has already received 1 dose of methylprednisolone 125 mg that will be continued at 40 mg q. 8 hours. She does not appear toxic to me. I do not believe that this is sepsis. She did receive Levaquin and cefepime in the ED. We will hold off on antibiotics for now. She has no white count and does not appear to be septic at this point. This should be re-evaluated tomorrow. 2. Compression fractures. These appear to be at baseline. She is having some pain. Again, she does not move good air and is guarding from her pain in her back. Her daughter states that the patient sleeps sitting up in a recliner chair. She is not able to lie flat. My concern with her not being able to lie flat is she may also have some congestive heart failure. She had an echocardiogram in September which showed some preserved ejection fraction at 65%; however, with the bipedal edema, I am concerned also because she received fluid resuscitation in the ED that she may be in acute congestive heart failure as well, so I will repeat her BNP. I will give her 40 of Lasix. She does appear to be volume overloaded and we will continue to monitor her cardiac, renal, and respiratory status. 3. For her history of abdominal aortic aneurysm, CAT scan reveals that her stent is in place and not leaking. I 4. History of VTach. She is currently in sinus tachycardia with no ventricular ectopy. She will remain on telemetry. 5. For her hypomagnesemia and hypokalemia, these electrolytes will be repleted. My concern would be for her history of ventricular tachycardia with her magnesium and potassium being low, she is at high risk for cardiac arrhythmias. Monitor lytes daily. 6. For DVT prophylaxis, the patient will be placed on heparin 5000 units subcu q.8 hours. 7. Diet. She should have a heart-healthy diet. 8. Activity. Currently, the patient can be out of bed to chair, although I do not think that ambulation would be warranted at this time given the seriousness of her respiratory status. Disposition. Admit to ICU This plan of care has been discussed with Dr. Nuvia Alvares, my attending for today. She is in agreement with this plan of care. TIME SPENT: I spent in excess of 60 minutes admitting the patient, interfacing with her and her family, and also the ER staff to enact her plan of care. MARU GOULD, SYLVIA [id number]/[facility] #: [id number] MTDD
[2017-12-28] MEDS: Mometasone/Formoter 200/5 MDI INH SCH ×3 (00:15→19:43)
[2017-12-28] MEDS: Albuterol/Ipratropium NEB.SOL* Albuterol 2.5 MG/Ipratropium 0.5 MG 3 ML INH SCH ×7 (00:16→23:08)
[2017-12-28] MEDS: methylPREDNISolone SOD 40 MG* 1 ML VIAL IV SCH ×3 (05:23→20:44)
[2017-12-28] MEDS: Heparin VIAL(*) 5000 UNITS/ML VIAL (FIVE THOUSAND) SUBCUT SCH ×3 (05:24→20:44)
[2017-12-28 05:28] LABS: ABS Basophils 0 10^3/ul (0-0.2); ABS Eosinophils 0 10^3/ul (0-0.6); ABS Lymphocytes 0.3 10^3/ul (1.0-4.8); ABS Monocytes 0 10^3/ul (0-0.8); ABS Neutrophils 3.2 10^3/ul (1.5-7.7); ABS Nucleated RBC 0 10^3/ul; Eosinophil % 0 % (0-6); Hematocrit 36 % (35-47); Hemoglobin 12.4 g/dl (12.0-16.0); Lymphocyte % 8.2 % (25-47); Mean Corpuscular HGB Conc 35 g/dl (31-36); Mean Corpuscular Hemoglobin 35 pg (27-31); Mean Corpuscular Volume 101 fL (80-97); Mean Platelet Volume 8.5 um3 (7.4-10.4); Nucleated Red Blood Cells % 0; Platelet Count 200 10^3/ul (150-450); Red Blood Count 3.52 10^6/ul (4.00-5.40); Red Cell Distribution Width 13 % (10.5-15); White Blood Count 3.5 10^3/ul (3.5-10.8)
[2017-12-28] MEDS: ALPRAZolam TAB* 0.25 MG PO PRN (05:43)
[2017-12-28 06:58] LABS: EGFR Non-African American 69.3 (>60)
[2017-12-28] MEDS: Levothyroxine TAB* 100 MCG TAB PO SCH (07:07)
[2017-12-28] MEDS: Atorvastatin* 20 MG TAB PO SCH (07:57)
[2017-12-28] MEDS: Gabapentin CAP(*) 300 MG PO SCH (07:59)
[2017-12-28] MEDS: KCL 20 MEQ/100 ML IVPREMIX* 20 MEQ/100 ML BAG IV SCH ×2 (08:45→13:28)
[2017-12-28] MEDS: cefTRIAXone(*) 1 GM in NS 0.9% 50 ML* 50 ML IVPB SCH (08:52)
[2017-12-28] MEDS: Azithromycin IV(*) 500 MG in NS 0.9% 250 ML* 250 ML IVPB SCH (09:22)
--- NOTE | 2017-12-28 12:41 | ECHO ---
Patient: JOHNAHTON GUARDADO [facility] Rec#: [id number] : 1935 Date: 12/28/2017 Age: 82y Height: 142 cm / 55.9 in Weight: 55.8 kg / 123.0 lbs Sex: F BSA: 1.4 Room#: ICU 6 Admit Date#: 12/27/2017 Type: Inpatient Referring: Gabby Love Reading: Carlos Lewis MD Typesetting Machine Tender: Daija Perdomo RN RDCS CC: Chuy Chappell MD Transthoracic Echocardiogram Indication: Respiratory distress BP: 123/60 HR: 71 Rhythm: NSR Findings History: HTN, HLD, hypothyroidism, COPD, smoker, AAA repair, V. tach Technical Comments: The study is technically limited due to poor acoustic windows. The study is technically limited due to the patient's history of COPD. Left Ventricle: The left ventricular chamber size is normal. Mild concentric left ventricular hypertrophy is observed. Global left ventricular wall motion and contractility are within normal limits. There is normal left ventricular systolic function. The estimated ejection fraction is 60-65%. The assessment of diastolic function is non-diagnostic. Left Atrium: The left atrial chamber size is normal. Right Ventricle: The right ventricle wall thickness is moderately increased. The right ventricular cavity size is normal. The right ventricular global systolic function is normal. Right Atrium: The right atrium is not well visualized. Aortic Valve: The aortic valve structure is not well visualized. The aortic valve leaflets are mildly thickened. There is no evidence of aortic regurgitation. There is mild aortic stenosis. The mean gradient of the aortic valve is 9 mmHg. The peak instantaneous gradient of the aortic valve is 14 mmHg. The aortic valve area, by peak velocities, is calculated at 1.9 cm2. The aortic valve area, by VTI's, is calculated at 2 cm2. Mitral Valve: The mitral valve leaflets are mildly thickened. There is a trace of mitral regurgitation. There is no evidence of mitral stenosis. Tricuspid Valve: The tricuspid valve structure is not well visualized. There is no evidence of tricuspid valve regurgitation. There is no tricuspid stenosis. Pulmonic Valve: The pulmonic valve structure is not well visualized. Pericardium: There is no significant pericardial effusion. A pericardial fat pad is visualized. Aorta: The ascending aorta is not well visualized. The aortic arch is not well visualized. There is no dilation of the aortic root. Pulmonary Artery: The main pulmonary artery is not well visualized. Venous: The inferior vena cava appears normal in size. There is an approximate 50% respiratory change in the inferior vena cava dimension. Conclusions The study is technically limited due to the patient's history of COPD. Global left ventricular wall motion and contractility are within normal limits. There is normal left ventricular systolic function. The estimated ejection fraction is 60-65%. The right ventricle wall thickness is moderately increased. The right ventricular global systolic function is normal. The aortic valve leaflets are mildly thickened. There is mild aortic stenosis. The mean gradient of the aortic valve is 9 mmHg. There is a trace of mitral regurgitation. There is no evidence of tricuspid valve regurgitation. There is no significant pericardial effusion. Measurements Name Value Normal Range RVAW (2D) 1 cm (0.2 - 0.5) IVSd (2D) 1.2 cm (0.6 - 1) LVPWd (2D) 1.1 cm (0.6 - 1) LVIDd (2D) 4.1 cm (3.6 - 5.4) Ao root diameter (2D) 2.6 cm (2.1 - 3.5) LA dimension (AP) 2D 2.7 cm (2.3 - 3.8) LAd ISD 4CH 4.6 cm (2.9 - 5.3) LA ISD 4CH W 3.8 cm (2.5 - 4.5) Name Value Normal Range LA ESV BP (A/L) index 17 ml/m2 - Name Value Normal Range MV E-wave Vmax 0.77 m/sec - MV deceleration time 254 msec - MV A-wave Vmax 1.2 m/sec - MV E:A ratio 0.7 ratio - LV septal e' Vmax 0.06 m/sec - LV lateral e' Vmax 0.07 m/sec - LV E:e' septal ratio 12.8 ratio - LV E:e' lateral ratio 11 ratio - Name Value Normal Range AV Vmax 1.9 m/sec - AV VTI 41.8 cm - AV peak gradient 14 mmHg - AV mean gradient 9 mmHg - LVOT diameter 1.9 cm - LVOT Vmax 1.3 m/sec - LVOT VTI 29.3 cm - LVOT peak gradient 6 mmHg - LVOT mean gradient 4 mmHg - DOI (VTI) 0.7 ratio - DOI (Vmax) 0.68 ratio - TAE (continuity Vmax) 1.9 cm2 - TAE (continuity VTI) 2 cm2 - Name Value Normal Range IVC diameter 2.1 cm - Name Value Normal Range PV Vmax 0.66 m/sec -
[2017-12-28] MEDS: oxyCODONE TAB* 5 MG TAB PO PRN (16:07)
--- NOTE | 2017-12-28 16:24 | PN ---
Subjective Date of Service: 12/28/17 Interval History: HOSPITALIST PROGRESS NOTE Patient seen and examined at bedside. Care reviewed and d/w Flakita Stephens RN. She feels a little better today, still has dyspnea, but less intense. Denies chest pain, palpitations, but still anxious. Sporadic cough with yellow sputum. Family History: Unchanged from Admission Social History: Unchanged from Admission Past Medical History: Unchanged from Admission Objective Active Medications: Acetaminophen (Tylenol Tab*) 650 mg PO Q6H PRN PRN Reason: pain or fever Albuterol/Ipratropium (Duoneb (Albuterol 2.5 Mg/Ipratropium 0.5 Mg)) 1 neb INH [id number] AWAKE [facility] Last Admin: 12/28/17 15:19 Dose: 1 neb Alprazolam (Xanax Tab*) 0.25 mg PO Q8H PRN PRN Reason: ANXIETY Last Admin: 12/28/17 05:43 Dose: 0.25 mg Atorvastatin Calcium (Lipitor*) 20 mg PO DAILY [facility] Last Admin: 12/28/17 07:57 Dose: 20 mg Heparin Sodium (Porcine) (Heparin Vial(*)) 5,000 units SUBCUT Q8HR [facility] Last Admin: 12/28/17 13:35 Dose: 5,000 units Ceftriaxone Sodium 1 gm/ (Sodium Chloride) 50 mls @ 200 mls/hr IVPB Q24H [facility] Last Admin: 12/28/17 08:52 Dose: 200 mls/hr Azithromycin 500 mg/ Sodium (Chloride) 250 mls @ 250 mls/hr IVPB Q24H [facility] Last Admin: 12/28/17 09:22 Dose: 250 mls/hr Levothyroxine Sodium (Synthroid Tab*) 100 mcg PO QAM@0600 [facility] Last Admin: 12/28/17 07:07 Dose: 100 mcg Methylprednisolone Sodium Succinate (Solu-Medrol 40 Mg) 40 mg IV Q8H [facility] Last Admin: 12/28/17 12:22 Dose: 40 mg Mometasone Furoate/Formoterol Fumar (Dulera 200/5 Mdi*) 2 puff INH BID PRICILA; Protocol Last Admin: 12/28/17 09:27 Dose: 2 puff Oxycodone HCl (Roxycodone Tab*) 5 mg PO Q4H PRN PRN Reason: PAIN Last Admin: 12/28/17 16:07 Dose: 5 mg Vital Signs - 8 hr 12/28/17 12/28/17 12/28/17 09:00 09:52 10:00 Temperature 97.7 F 99.0 F Pulse Rate 80 95 Respiratory 17 27 26 Rate Blood Pressure 119/60 (mmHg) O2 Sat by Pulse 95 97 Oximetry 12/28/17 12/28/17 12/28/17 10:06 10:56 11:00 Temperature 98.8 F 99.0 F Pulse Rate 95 101 Respiratory 22 24 28 Rate Blood Pressure 110/57 (mmHg) O2 Sat by Pulse 97 96 Oximetry 12/28/17 12/28/17 12/28/17 11:01 12:00 13:00 Temperature 99.0 F 99.1 F 99.1 F Pulse Rate 95 91 80 Respiratory 31 31 22 Rate Blood Pressure 103/40 108/52 95/56 (mmHg) O2 Sat by Pulse 84 96 95 Oximetry 12/28/17 12/28/17 12/28/17 13:58 14:00 14:01 Temperature Pulse Rate 91 89 Respiratory 20 20 34 Rate Blood Pressure 99/51 (mmHg) O2 Sat by Pulse 94 96 Oximetry 12/28/17 12/28/17 12/28/17 15:00 15:29 15:32 Temperature 99.6 F Pulse Rate 85 84 Respiratory 19 17 Rate Blood Pressure 96/52 (mmHg) O2 Sat by Pulse 95 94 Oximetry Oxygen Devices in Use Now: High Flow Heated Nasal Cannula - 30 liters Appearance: Elderly lady sitting up in bed in [facility]. Eyes: No Scleral Icterus Ears/Nose/Mouth/Throat: Mucous Membranes Moist Neck: Trachea Midline Respiratory: Symmetrical Chest Expansion and Respiratory Effort, - - BS+ bilaterally with scattered wheezes Cardiovascular: RRR - Normal S1 and S2 Abdominal: NL Sounds; No Tenderness; No Distention Neurological: Alert and Oriented x 3, NL Muscle Strength and Tone Result Diagrams: 12/28/17 05:10 12/28/17 05:10 Assess/Plan/Problems-Billing Assessment: Mrs Saucedo is an 81yo F with PMH of HLD, HTN, hypothyroidism, anxiety, COPD on home O2 at night, AAA s/p repair, herpes zoster, diverticulosis, s/p cholecystectomy and appendectomy, who presented to ED with c/o shortness of breath, found to have COPD exacerbation. - Patient Problems (1) Acute on chronic respiratory failure with hypoxemia Comment: - Secondary to COPD exacerbation. - There was some concerning for CHF on admission - echo shows preserved EF 60-65 %, with no wall motion abnormalities and she has no signs of fluid overload. - Oxygen titrated down - now on 4 liters - will transfer to Telemetry. (2) COPD with acute exacerbation Comment: - CxR showed NAPD and CTA chest was negative for PE and infiltrates. - Exacerbation secondary to bronchitis. - Continue Ceftriaxone, Zithromax, steroids, and bronchodilators. - Check Influenza rapid test. (3) Tobacco abuse Comment: - Continues to smoke, despite being on oxygen at home. Not motivated to quit at this time. (4) Compression fracture Comment: - Chronic. - Continue pain meds. (5) AAA (abdominal aortic aneurysm) Comment: - Patient had an infrarenal AAA measuring 6.2cm and underwent endovascular (endograft) repair with a modular bifurcated prosthesis in 2013. - CTA shows stent in place. (6) DVT prophylaxis Comment: - SQ heparin Status and Disposition: Inpatient.
[2017-12-29] MEDS: oxyCODONE TAB* 5 MG TAB PO PRN ×4 (01:17→17:22)
[2017-12-29] MEDS: ALPRAZolam TAB* 0.25 MG PO PRN ×2 (01:17→14:47)
[2017-12-29] MEDS: Albuterol/Ipratropium NEB.SOL* Albuterol 2.5 MG/Ipratropium 0.5 MG 3 ML INH SCH ×6 (03:02→22:39)
[2017-12-29] MEDS: methylPREDNISolone SOD 40 MG* 1 ML VIAL IV SCH ×3 (05:11→20:30)
[2017-12-29] MEDS: Levothyroxine TAB* 100 MCG TAB PO SCH (05:11)
[2017-12-29] MEDS: Heparin VIAL(*) 5000 UNITS/ML VIAL (FIVE THOUSAND) SUBCUT SCH ×3 (05:11→22:53)
[2017-12-29 06:44] LABS: ABS Basophils 0 10^3/ul (0-0.2); ABS Eosinophils 0 10^3/ul (0-0.6); ABS Lymphocytes 0.6 10^3/ul (1.0-4.8); ABS Monocytes 0.3 10^3/ul (0-0.8); ABS Neutrophils 9.3 10^3/ul (1.5-7.7); ABS Nucleated RBC 0 10^3/ul; Eosinophil % 0 % (0-6); Hematocrit 33 % (35-47); Hemoglobin 11.4 g/dl (12.0-16.0); Mean Corpuscular HGB Conc 35 g/dl (31-36); Mean Corpuscular Hemoglobin 35 pg (27-31); Mean Corpuscular Volume 101 fL (80-97); Mean Platelet Volume 8.4 um3 (7.4-10.4); Nucleated Red Blood Cells % 0.1; Platelet Count 191 10^3/ul (150-450); Red Blood Count 3.23 10^6/ul (4.00-5.40); Red Cell Distribution Width 14 % (10.5-15); White Blood Count 10.2 10^3/ul (3.5-10.8)
[2017-12-29 07:00] LABS: EGFR Non-African American 83.9 (>60)
[2017-12-29] MEDS: Mometasone/Formoter 200/5 MDI INH SCH ×2 (07:45→19:48)
[2017-12-29] MEDS: cefTRIAXone(*) 1 GM in NS 0.9% 50 ML* 50 ML IVPB SCH (08:57)
[2017-12-29] MEDS: Atorvastatin* 20 MG TAB PO SCH (08:57)
[2017-12-29] MEDS: Azithromycin IV(*) 500 MG in NS 0.9% 250 ML* 250 ML IVPB SCH (10:22)
[2017-12-29] MEDS: Senna TAB PO PRN (11:26)
[2017-12-29] MEDS: Docusate CAP* 100 MG PO PRN (11:26)
[2017-12-29] MEDS: Magnesium Hydroxide LIQ* 30 ML UDC PO PRN ×2 (11:27→13:02)
[2017-12-29] MEDS: Polyethylene Glycol 3350* 17 GM PACKET PO PRN (11:27)
--- NOTE | 2017-12-29 17:58 | PN ---
Subjective Date of Service: 12/29/17 Interval History: . no new c/o other than: generalized weakness noted; PT ordered + constipation ongoing --> bowel regimen ordered. breathing improved, still weaning oxygen. . Family History: Unchanged from Admission Social History: Unchanged from Admission Past Medical History: Unchanged from Admission Objective Active Medications: . Acetaminophen (Tylenol Tab*) 650 mg PO Q6H PRN PRN Reason: pain or fever Albuterol/Ipratropium (Duoneb (Albuterol 2.5 Mg/Ipratropium 0.5 Mg)) 1 neb INH [id number] AWAKE [facility] Last Admin: 12/29/17 14:57 Dose: 1 neb Alprazolam (Xanax Tab*) 0.25 mg PO Q8H PRN PRN Reason: ANXIETY Last Admin: 12/29/17 14:47 Dose: 0.25 mg Atorvastatin Calcium (Lipitor*) 20 mg PO DAILY [facility] Last Admin: 12/29/17 08:57 Dose: 20 mg Docusate Sodium (Colace Cap*) 100 mg PO BID PRN PRN Reason: CONSTIPATION Last Admin: 12/29/17 11:26 Dose: 100 mg Heparin Sodium (Porcine) (Heparin Vial(*)) 5,000 units SUBCUT Q8HR [facility] Last Admin: 12/29/17 13:02 Dose: 5,000 units Ceftriaxone Sodium 1 gm/ (Sodium Chloride) 50 mls @ 200 mls/hr IVPB Q24H [facility] Last Admin: 12/29/17 08:57 Dose: 200 mls/hr Azithromycin 500 mg/ Sodium (Chloride) 250 mls @ 250 mls/hr IVPB Q24H [facility] Last Admin: 12/29/17 10:22 Dose: 250 mls/hr Levothyroxine Sodium (Synthroid Tab*) 100 mcg PO QAM@0600 [facility] Last Admin: 12/29/17 05:11 Dose: 100 mcg Magnesium Hydroxide (Milk Of Magnesia Liq*) 30 ml PO Q6H PRN PRN Reason: CONSTIPATION Last Admin: 12/29/17 13:02 Dose: 30 ml Methylprednisolone Sodium Succinate (Solu-Medrol 40 Mg) 40 mg IV Q8H [facility] Last Admin: 12/29/17 11:26 Dose: 40 mg Mometasone Furoate/Formoterol Fumar (Dulera 200/5 Mdi*) 2 puff INH BID PRICILA; Protocol Last Admin: 12/29/17 07:45 Dose: 2 puff Oxycodone HCl (Roxycodone Tab*) 5 mg PO Q4H PRN PRN Reason: PAIN Last Admin: 12/29/17 17:22 Dose: 5 mg Polyethylene Glycol/Electrolytes (Miralax*) 17 gm PO DAILY PRN PRN Reason: CONSTIPATION Last Admin: 12/29/17 11:27 Dose: 17 gm Senna (Senokot Tab*) 2 tab PO BEDTIME PRN PRN Reason: CONSTIPATION Last Admin: 12/29/17 11:26 Dose: 2 tab . Vital Signs - 8 hr 12/29/17 12/29/17 12/29/17 11:40 11:50 12:18 Temperature 98.2 F Pulse Rate 72 76 Respiratory 21 18 Rate Blood Pressure 107/49 (mmHg) O2 Sat by Pulse 95 91 Oximetry 12/29/17 12/29/17 12/29/17 13:01 14:41 14:47 Temperature 97.5 F Pulse Rate 74 Respiratory 18 24 25 Rate Blood Pressure 112/52 (mmHg) O2 Sat by Pulse 92 Oximetry Oxygen Devices in Use Now: Nasal Cannula Appearance: NAD Eyes: No Scleral Icterus Ears/Nose/Mouth/Throat: NL Teeth, Lips, Gums Neck: NL Appearance and Movements; NL JVP Respiratory: Symmetrical Chest Expansion and Respiratory Effort Cardiovascular: NL Sounds; No Murmurs; No JVD Abdominal: NL Sounds; No Tenderness; No Distention Lymphatic: No Cervical Adenopathy Extremities: No Edema Skin: No Rash or Ulcers Neurological: Alert and Oriented x 3 Lines/Tubes/Other Access: Clean, Dry and Intact Peripheral IV Nutrition: Taking PO's Result Diagrams: 12/29/17 06:29 12/29/17 06:29 Microbiology and Other Data: Microbiology 12/27/17 15:49 Aerobic Blood Culture - Preliminary Blood Venous No Growth Day 2 Anaerobic Blood Culture - Preliminary No Growth Day 2 12/27/17 15:49 Aerobic Blood Culture - Preliminary Blood Venous No Growth Day 2 Anaerobic Blood Culture - Preliminary No Growth Day 2 12/28/17 16:39 Influenza Types A,B Antigen - Final Nasal Specimen received for Influenza A/B Molecular testing 12/27/17 15:58 Urine Culture - Final Urine 12/27/17 20:10 Nasal Screen MRSA (PCR) - Final Nasal Mrsa Not Detected Assess/Plan/Problems-Billing . Assessment: Mrs Saucedo is an 81yo F with PMH of HLD, HTN, hypothyroidism, anxiety, COPD on home O2 at night, AAA s/p repair, herpes zoster, diverticulosis, s/p cholecystectomy and appendectomy, who presented to ED with c/o shortness of breath, found to have COPD exacerbation. - Patient Problems (1) COPD with acute exacerbation Current Visit: Yes Status: Acute Priority: High Code(s): J44.1 - CHRONIC OBSTRUCTIVE PULMONARY DISEASE W (ACUTE) EXACERBATION Comment: - CxR showed NAPD and CTA chest was negative for PE and infiltrates. - Exacerbation secondary to bronchitis. - Continue Ceftriaxone, Zithromax, steroids, and bronchodilators. - Check Influenza rapid test. (2) Acute on chronic respiratory failure with hypoxemia Current Visit: Yes Status: Acute Priority: High Code(s): J96.21 - ACUTE AND CHRONIC RESPIRATORY FAILURE WITH HYPOXIA Comment: - Secondary to COPD exacerbation. - There was some concerning for CHF on admission - echo shows preserved EF 60-65 %, with no wall motion abnormalities and she has no signs of fluid overload. - Oxygen titrated down - now on 4 liters - will dc telemetry (3) AAA (abdominal aortic aneurysm) Current Visit: Yes Status: Acute Priority: High Code(s): I71.4 - ABDOMINAL AORTIC ANEURYSM, WITHOUT RUPTURE SNOMED Code(s): 852285675 Comment: - Patient had an infrarenal AAA measuring 6.2 cm and underwent endovascular ( endograft) repair with a modular bifurcated prosthesis in 2013. - CTA shows stent in place. (4) Compression fracture Current Visit: Yes Status: Acute Priority: High Code(s): RIW4457 - Comment: - Chronic. - Continue pain meds. (5) DVT prophylaxis Current Visit: Yes Status: Acute Priority: High Code(s): NCU9615 - Comment: - SQ heparin (6) Tobacco abuse Current Visit: Yes Status: Acute Priority: High Code(s): Z72.0 - TOBACCO USE Comment: - Continues to smoke, despite being on oxygen at home. - Not motivated to quit at this time. Status and Disposition: Inpatient.
[2017-12-30] MEDS: Albuterol/Ipratropium NEB.SOL* Albuterol 2.5 MG/Ipratropium 0.5 MG 3 ML INH SCH ×4 (02:28→15:41)
[2017-12-30] MEDS: ALPRAZolam TAB* 0.25 MG PO PRN (02:40)
--- NOTE | 2017-12-30 04:39 | PN ---
Progress Note - Progress Note Date of Service: 12/30/17 Note: Patient having brief runs of third degree heart block less than 5 seconds throughout the day. VItals stable. Patient remains asymptomatic during these episodes.
[2017-12-30] MEDS: methylPREDNISolone SOD 40 MG* 1 ML VIAL IV SCH ×3 (04:56→20:30)
[2017-12-30] MEDS: Heparin VIAL(*) 5000 UNITS/ML VIAL (FIVE THOUSAND) SUBCUT SCH ×3 (05:02→20:30)
[2017-12-30] MEDS: Levothyroxine TAB* 100 MCG TAB PO SCH (05:07)
[2017-12-30 05:42] LABS: ABS Basophils 0 10^3/ul (0-0.2); ABS Eosinophils 0 10^3/ul (0-0.6); ABS Lymphocytes 0.6 10^3/ul (1.0-4.8); ABS Monocytes 0.4 10^3/ul (0-0.8); ABS Neutrophils 9.8 10^3/ul (1.5-7.7); ABS Nucleated RBC 0 10^3/ul; Eosinophil % 0 % (0-6); Hematocrit 33 % (35-47); Hemoglobin 11.7 g/dl (12.0-16.0); Lymphocyte % 5.2 % (25-47); Mean Corpuscular HGB Conc 35 g/dl (31-36); Mean Corpuscular Hemoglobin 36 pg (27-31); Mean Corpuscular Volume 102 fL (80-97); Mean Platelet Volume 8.4 um3 (7.4-10.4); Nucleated Red Blood Cells % 0; Platelet Count 202 10^3/ul (150-450); Red Blood Count 3.26 10^6/ul (4.00-5.40); Red Cell Distribution Width 14 % (10.5-15); White Blood Count 10.8 10^3/ul (3.5-10.8)
[2017-12-30 05:58] LABS: EGFR Non-African American 82.4 (>60)
[2017-12-30] MEDS: Mometasone/Formoter 200/5 MDI INH SCH ×2 (07:35→20:06)
[2017-12-30] MEDS: Atorvastatin* 20 MG TAB PO SCH (09:28)
[2017-12-30] MEDS: cefTRIAXone(*) 1 GM in NS 0.9% 50 ML* 50 ML IVPB SCH (09:28)
[2017-12-30] MEDS: oxyCODONE TAB* 5 MG TAB PO PRN (09:48)
[2017-12-30] MEDS: Azithromycin IV(*) 500 MG in NS 0.9% 250 ML* 250 ML IVPB SCH (10:15)
[2017-12-30] MEDS ORDERED: Albuterol/Ipratropium NEB.SOL* Albuterol 2.5 MG/Ipratropium 0.5 MG 3 ML INH PRN (15:50)
--- NOTE | 2017-12-30 17:04 | PN ---
Subjective Date of Service: 12/30/17 Interval History: Ms. Saucedo reports back pain this morning from laying in bed. Was able to have a BM this morning after several days of constipation. Nursing reports dyspnea. She is currently requiring 5L NC to maintain sat in the low 90s. She is upset about not being able to go home, but agreeable to spending another night in the hospital. Concern overnight about abnormal tele strips thought to be short runs of 3rd degree heart block, but patient was asymptomatic and has not had any further episodes today. Denies CP, cough, N/V. Family History: Unchanged from Admission Social History: Unchanged from Admission Past Medical History: Unchanged from Admission Objective Active Medications: Acetaminophen (Tylenol Tab*) 650 mg PO Q6H PRN Albuterol/Ipratropium (Duoneb (Albuterol 2.5 Mg/Ipratropium 0.5 Mg)) 1 neb INH Q4H PRN Alprazolam (Xanax Tab*) 0.25 mg PO Q8H PRN Atorvastatin Calcium (Lipitor*) 20 mg PO DAILY PRICILA Docusate Sodium (Colace Cap*) 100 mg PO BID PRN Heparin Sodium (Porcine) (Heparin Vial(*)) 5,000 units SUBCUT Q8HR PRICILA Ceftriaxone Sodium 1 gm/ (Sodium Chloride) 50 mls @ 200 mls/hr IVPB Q24H PRICILA Azithromycin 500 mg/ Sodium (Chloride) 250 mls @ 250 mls/hr IVPB Q24H PRICILA Levothyroxine Sodium (Synthroid Tab*) 100 mcg PO QAM@0600 PRICILA Magnesium Hydroxide (Milk Of Magnesia Liq*) 30 ml PO Q6H PRN Methylprednisolone Sodium Succinate (Solu-Medrol 40 Mg) 40 mg IV Q8H PRICILA Mometasone Furoate/Formoterol Fumar (Dulera 200/5 Mdi*) 2 puff INH BID PRICILA; Protocol Oxycodone HCl (Roxycodone Tab*) 5 mg PO Q4H PRN Polyethylene Glycol/Electrolytes (Miralax*) 17 gm PO DAILY PRN Senna (Senokot Tab*) 2 tab PO BEDTIME PRN Vital Signs - 8 hr 12/30/17 12/30/17 09:48 15:34 Respiratory 22 20 Rate Oxygen Devices in Use Now: Nasal Cannula Appearance: Elderly female sitting in bed in no acute distess. Eyes: No Scleral Icterus, PERRLA Ears/Nose/Mouth/Throat: Mucous Membranes Moist Neck: NL Appearance and Movements; NL JVP, Trachea Midline Respiratory: Symmetrical Chest Expansion and Respiratory Effort, - - Diminished to auscultation throughout Cardiovascular: NL Sounds; No Murmurs; No JVD, RRR, No Edema Abdominal: NL Sounds; No Tenderness; No Distention, No Hepatosplenomegaly Extremities: No Edema Skin: No Rash or Ulcers Neurological: - - Alert, oriented to self, place, situation Lines/Tubes/Other Access: Clean, Dry and Intact Peripheral IV Result Diagrams: 12/30/17 05:33 12/30/17 05:33 Assess/Plan/Problems-Billing Assessment: Mrs Saucedo is an 81yo F with PMH of HLD, HTN, hypothyroidism, anxiety, COPD on home O2 at night, AAA s/p repair, herpes zoster, diverticulosis, s/p cholecystectomy and appendectomy, who presented to ED with c/o shortness of breath, found to have COPD exacerbation. - Patient Problems (1) COPD with acute exacerbation Current Visit: Yes Status: Acute Priority: High Code(s): J44.1 - CHRONIC OBSTRUCTIVE PULMONARY DISEASE W (ACUTE) EXACERBATION SNOMED Code(s): 549344076 Comment: - CXR showed NAPD and CTA chest was negative for PE and infiltrates - Influenza negative - Exacerbation secondary to bronchitis - Typically on 2.5-3L NC at home - currently requiring 5L - Continue Ceftriaxone, Zithromax, steroids, and bronchodilators (2) Acute on chronic respiratory failure with hypoxemia Current Visit: Yes Status: Acute Priority: High Code(s): J96.21 - ACUTE AND CHRONIC RESPIRATORY FAILURE WITH HYPOXIA SNOMED Code(s): 07678308103631044 Comment: - Secondary to COPD exacerbation - There was some concerning for CHF on admission - echo shows preserved EF 60-65 %, with no wall motion abnormalities and she has no signs of fluid overload (3) Heart block Current Visit: Yes Status: Acute Priority: High Code(s): I45.9 - CONDUCTION DISORDER, UNSPECIFIED SNOMED Code(s): 025523891 Comment: - 1st degree at baseline - Reviewed with cardiology and it appears as though she had 3 short runs of WenathanielGuardium overnight - Telemetry monitoring (4) AAA (abdominal aortic aneurysm) Current Visit: Yes Status: Acute Priority: High Code(s): I71.4 - ABDOMINAL AORTIC ANEURYSM, WITHOUT RUPTURE SNOMED Code(s): 169275813 Comment: - Had an infrarenal AAA measuring 6.2 cm and underwent endovascular (endograft) repair with a modular bifurcated prosthesis in 2013 - CTA shows stent in place (5) Compression fracture Current Visit: Yes Status: Acute Priority: High Code(s): NSV3306 - SNOMED Code(s): 500753124 Comment: - Chronic - Continue oxy and tylenol (6) Tobacco abuse Current Visit: Yes Status: Acute Priority: High Code(s): Z72.0 - TOBACCO USE SNOMED Code(s): 998039521 Comment: - Continues to smoke, despite being on oxygen at home - Not motivated to quit at this time (7) DNR (do not resuscitate) Current Visit: Yes Status: Acute Priority: High (8) DVT prophylaxis Current Visit: Yes Status: Acute Priority: High Code(s): TBS4527 - SNOMED Code(s): 816940259 Comment: - Heparin SQ Status and Disposition: Inpatient. Possible d/c home tomorrow.
[2017-12-31] MEDS: Senna TAB PO PRN ×2 (00:14→09:13)
[2017-12-31] MEDS: Docusate CAP* 100 MG PO PRN (00:14)
[2017-12-31] MEDS ORDERED: Bisacodyl SUPP* 10 MG SUPP PR ONE (00:35)
[2017-12-31] MEDS: methylPREDNISolone SOD 40 MG* 1 ML VIAL IV SCH (03:09)
[2017-12-31] MEDS: oxyCODONE TAB* 5 MG TAB PO PRN (04:17)
[2017-12-31] MEDS: Magnesium Hydroxide LIQ* 30 ML UDC PO PRN (04:18)
[2017-12-31] MEDS: Heparin VIAL(*) 5000 UNITS/ML VIAL (FIVE THOUSAND) SUBCUT SCH ×3 (05:43→21:44)
[2017-12-31] MEDS: Levothyroxine TAB* 100 MCG TAB PO SCH ×2 (06:22→07:26)
[2017-12-31 07:16] LABS: ABS Basophils 0 10^3/ul (0-0.2); ABS Eosinophils 0 10^3/ul (0-0.6); ABS Lymphocytes 0.3 10^3/ul (1.0-4.8); ABS Monocytes 0.3 10^3/ul (0-0.8); ABS Neutrophils 7.5 10^3/ul (1.5-7.7); ABS Nucleated RBC 0 10^3/ul; Eosinophil % 0 % (0-6); Hematocrit 38 % (35-47); Hemoglobin 13.1 g/dl (12.0-16.0); Lymphocyte % 4.2 % (25-47); Mean Corpuscular HGB Conc 35 g/dl (31-36); Mean Corpuscular Hemoglobin 36 pg (27-31); Mean Corpuscular Volume 102 fL (80-97); Mean Platelet Volume 8.6 um3 (7.4-10.4); Nucleated Red Blood Cells % 0; Platelet Count 214 10^3/ul (150-450); Red Cell Distribution Width 14 % (10.5-15); White Blood Count 8.1 10^3/ul (3.5-10.8)
[2017-12-31] MEDS: Mometasone/Formoter 200/5 MDI INH SCH ×2 (07:45→20:37)
[2017-12-31] MEDS: cefTRIAXone(*) 1 GM in NS 0.9% 50 ML* 50 ML IVPB SCH (08:52)
[2017-12-31] MEDS: Atorvastatin* 20 MG TAB PO SCH (08:52)
[2017-12-31] MEDS ORDERED: Sodium Phosphate ADULT ENEMA* 118 ml bottle PR PRN (09:26)
[2017-12-31] MEDS: Azithromycin IV(*) 500 MG in NS 0.9% 250 ML* 250 ML IVPB SCH (10:32)
--- NOTE | 2017-12-31 11:17 | PN ---
Subjective Date of Service: 12/31/17 Interval History: Ms. Saucedo reports malaise this morning. She c/o a constant headache and constipation. She is now on 4L NC. Has not been up ambulating much. Agreeable to staying another night in the hospital. Nursing reports one short episode of bigeminy this morning, but no further Wenckebach. Family History: Unchanged from Admission Social History: Unchanged from Admission Past Medical History: Unchanged from Admission Objective Active Medications: Acetaminophen (Tylenol Tab*) 650 mg PO Q6H PRN Albuterol/Ipratropium (Duoneb (Albuterol 2.5 Mg/Ipratropium 0.5 Mg)) 1 neb INH Q4H PRN Alprazolam (Xanax Tab*) 0.25 mg PO Q8H PRN Atorvastatin Calcium (Lipitor*) 20 mg PO DAILY PRICILA Docusate Sodium (Colace Cap*) 100 mg PO BID PRN Heparin Sodium (Porcine) (Heparin Vial(*)) 5,000 units SUBCUT Q8HR PRICILA Ceftriaxone Sodium 1 gm/ (Sodium Chloride) 50 mls @ 200 mls/hr IVPB Q24H PRICILA Azithromycin 500 mg/ Sodium (Chloride) 250 mls @ 250 mls/hr IVPB Q24H PRICILA Levothyroxine Sodium (Synthroid Tab*) 100 mcg PO 0600 PRICILA Magnesium Hydroxide (Milk Of Magnesia Liq*) 30 ml PO Q6H PRN Mometasone Furoate/Formoterol Fumar (Dulera 200/5 Mdi*) 2 puff INH BID PRICILA; Protocol Oxycodone/Acetaminophen (Percocet 5/325 Tab*) 1 tab PO Q6H PRN Polyethylene Glycol/Electrolytes (Miralax*) 17 gm PO DAILY PRN Prednisone (Deltasone Tab*) 50 mg PO DAILY PRICILA Senna (Senokot Tab*) 2 tab PO BEDTIME PRN Sodium Biphosphate/Sodium Phosphate (Fleet Enema*) 1 bottle NE DAILY PRN Vital Signs - 8 hr 12/31/17 12/31/17 12/31/17 04:15 04:17 07:12 Temperature 98.7 F Pulse Rate 93 Respiratory 20 21 20 Rate Blood Pressure 158/68 (mmHg) O2 Sat by Pulse 94 Oximetry 12/31/17 12/31/17 12/31/17 07:38 07:46 08:00 Temperature 98.3 F Pulse Rate 78 78 Respiratory 16 22 Rate Blood Pressure 146/73 (mmHg) O2 Sat by Pulse 97 97 Oximetry Oxygen Devices in Use Now: Nasal Cannula Appearance: Elderly female sitting in chair in no acute distress. Pursed lip breathing. Eyes: No Scleral Icterus, PERRLA Ears/Nose/Mouth/Throat: Mucous Membranes Moist Neck: NL Appearance and Movements; NL JVP, Trachea Midline Respiratory: Symmetrical Chest Expansion and Respiratory Effort, - - Diminished to auscultation throughout Cardiovascular: NL Sounds; No Murmurs; No JVD, RRR, No Edema Abdominal: NL Sounds; No Tenderness; No Distention, No Hepatosplenomegaly Extremities: No Edema Skin: No Rash or Ulcers Neurological: Alert and Oriented x 3 Lines/Tubes/Other Access: Clean, Dry and Intact Peripheral IV Nutrition: Taking PO's Result Diagrams: 12/31/17 07:00 12/30/17 05:33 Assess/Plan/Problems-Billing Assessment: Mrs Saucedo is an 81yo F with PMH of HLD, HTN, hypothyroidism, anxiety, COPD on home O2 at night, AAA s/p repair, herpes zoster, diverticulosis, s/p cholecystectomy and appendectomy, who presented to ED with c/o shortness of breath, found to have COPD exacerbation. - Patient Problems (1) COPD with acute exacerbation Current Visit: Yes Status: Acute Priority: High Code(s): J44.1 - CHRONIC OBSTRUCTIVE PULMONARY DISEASE W (ACUTE) EXACERBATION SNOMED Code(s): 717621862 Comment: - CXR showed NAPD and CTA chest was negative for PE and infiltrates - Influenza negative - Exacerbation secondary to bronchitis - Typically on 2.5-3L NC at home - currently requiring 4L - Continue Ceftriaxone, Zithromax, steroids, and bronchodilators (2) Acute on chronic respiratory failure with hypoxemia Current Visit: Yes Status: Acute Priority: High Code(s): J96.21 - ACUTE AND CHRONIC RESPIRATORY FAILURE WITH HYPOXIA SNOMED Code(s): 57655545328018605 Comment: - Secondary to COPD exacerbation - There was some concerning for CHF on admission - echo shows preserved EF 60-65 %, with no wall motion abnormalities and she has no signs of fluid overload (3) Heart block Current Visit: Yes Status: Acute Priority: High Code(s): I45.9 - CONDUCTION DISORDER, UNSPECIFIED SNOMED Code(s): 769904204 Comment: - 1st degree - Telemetry monitoring (4) AAA (abdominal aortic aneurysm) Current Visit: Yes Status: Acute Priority: High Code(s): I71.4 - ABDOMINAL AORTIC ANEURYSM, WITHOUT RUPTURE SNOMED Code(s): 276489731 Comment: - Had an infrarenal AAA measuring 6.2 cm and underwent endovascular (endograft) repair with a modular bifurcated prosthesis in 2013 - CTA shows stent in place (5) Compression fracture Current Visit: Yes Status: Acute Priority: High Code(s): HZT2507 - SNOMED Code(s): 551893745 Comment: - Chronic - Continue Percocet and tylenol (6) Tobacco abuse Current Visit: Yes Status: Acute Priority: High Code(s): Z72.0 - TOBACCO USE SNOMED Code(s): 192229828 Comment: - Continues to smoke, despite being on oxygen at home - Not motivated to quit at this time (7) DNR (do not resuscitate) Current Visit: Yes Status: Acute Priority: High (8) DVT prophylaxis Current Visit: Yes Status: Acute Priority: High Code(s): TXQ0590 - SNOMED Code(s): 255958119 Comment: - Heparin SQ Status and Disposition: Inpatient. Possible d/c home tomorrow.
[2017-12-31] MEDS: predniSONE TAB* 50 MG PO SCH (11:49)
[2017-12-31] MEDS: Polyethylene Glycol 3350* 17 GM PACKET PO PRN (11:49)
[2017-12-31] MEDS: oxyCODONE/Acetamin 5/325 MG* TAB PO PRN ×2 (11:49→21:51)
[2018-01-01] MEDS: Magnesium Hydroxide LIQ* 30 ML UDC PO PRN (00:48)
[2018-01-01] MEDS: Levothyroxine TAB* 100 MCG TAB PO SCH (05:15)
[2018-01-01] MEDS: Heparin VIAL(*) 5000 UNITS/ML VIAL (FIVE THOUSAND) SUBCUT SCH ×2 (05:15→14:20)
[2018-01-01] MEDS: Atorvastatin* 20 MG TAB PO SCH (07:17)
[2018-01-01] MEDS: oxyCODONE/Acetamin 5/325 MG* TAB PO PRN (07:18)
[2018-01-01] MEDS: predniSONE TAB* 50 MG PO SCH (07:18)
[2018-01-01] MEDS: cefTRIAXone(*) 1 GM in NS 0.9% 50 ML* 50 ML IVPB SCH (07:18)
[2018-01-01] MEDS: Senna TAB PO PRN (07:18)
[2018-01-01] MEDS: Mometasone/Formoter 200/5 MDI INH SCH (07:55)
[2018-01-01] MEDS ORDERED: Azithromycin TAB* 250 MG PO SCH (09:00)
--- NOTE | 2018-01-01 09:20 | DCNOTE ---
Discharge Progress Note: Primary Diagnosis: COPD exacerbation due to bronchitis Secondary Diagnoses: acute on chronic respiratory failure w/ hypoxemia hypothyroid hypertension hyperlipidemia osteoporosis w/ vertebral compression fracture anxiety h/o AAA w/ intravascular stent/repair diverticulosis constipation Consultants: none Procedures: none Complications: none Pertinent Lab/Radiology tests: Laboratory Tests 12/27/17 12/27/17 12/27/17 15:49 15:50 19:30 Hct D-Dimer, Quantitative 575 H ABG pH 7.41 ABG pCO2 55 H ABG pO2 72 L B-Natriuretic Peptide Procalcitonin < 0.1 Influenza A (Rapid) Influenza B (Rapid) 12/27/17 12/28/17 12/30/17 20:20 17:01 05:33 Hct 33 L D-Dimer, Quantitative ABG pH ABG pCO2 ABG pO2 B-Natriuretic Peptide 59 Procalcitonin Influenza A (Rapid) Negative Influenza B (Rapid) Negative 12/31/17 07:00 Hct 38 D-Dimer, Quantitative ABG pH ABG pCO2 ABG pO2 B-Natriuretic Peptide Procalcitonin Influenza A (Rapid) Influenza B (Rapid) Echo: EF 60-65% CTA chest: emphysema, no PE Abdominal XR: AAA stent in place, non-specific bowel gas pattern Tests pending upon discharge: none Discharge Physical Exam: 01/01/18 04:04 Temperature 36.8 C Pulse Rate 81 Respiratory 20 Rate Blood Pressure 145/70 (mmHg) O2 Sat by Pulse 94 Oximetry O2 on 3.5L NC Lungs: diminished throughout, no wheezes Heart: RRR, no murmur Abdomen: soft distended, diffuse mild tenderness No peripheral edema
--- NOTE | 2018-01-01 10:36 | RAD ---
INDICATION: Respiratory distress and clinical signs of bowel obstruction COMPARISON: Similar KUB dated April 06, 2011 TECHNIQUE: 2 views the abdomen were obtained. FINDINGS: There has been interval placement of an aortic stent graft. Surgical clips are again noted in the gallbladder fossa. The gas and stool pattern overlying the bowel is within normal limits. There is no pathologically dilated bowel. There is no evidence of free air. Degenerative changes of the thoracolumbar spine and bilateral hips are incidentally noted. IMPRESSION:NO RADIOGRAPHIC EVIDENCE OF BOWEL OBSTRUCTION OR INTRAPERITONEAL FREE AIR.
[2018-01-01 16:26] VITALS: BP 157/80
--- NOTE | 2018-01-02 07:20 | DS ---
CC: Dr. Chappell * DISCHARGE SUMMARY: DATE OF ADMISSION: 12/27/17 DATE OF DISCHARGE: 01/01/18 PRIMARY DIAGNOSIS: Chronic obstructive pulmonary disease exacerbation due to bronchitis. SECONDARY DIAGNOSES: 1. Acute on chronic respiratory failure with hypoxemia. 2. Hypothyroidism. 3. Hypertension. 4. Hyperlipidemia. 5. Osteoporosis with history of vertebral compression fracture. 6. Anxiety. 7. History of abdominal aortic aneurysm. 8. Abdominal aortic aneurysm with endovascular repair. 9. Diverticulosis. 10. Constipation. MEDICATIONS ON DISCHARGE: 1. Albuterol inhaler 2 puffs q.6 hours p.r.n. wheezing. 2. Fosamax 70 mg p.o. weekly. 3. Xanax 0.25 mg p.o. q.8 hours p.r.n. anxiety. 4. Lipitor 20 mg p.o. q.p.m. 5. Budesonide/formoterol 150/4.5 two puffs inhaled b.i.d. 6. Flonase nasal spray 2 sprays, both nostrils daily. 7. Lasix 20 mg p.o. q.a.m. 8. Gabapentin 300 mg p.o. t.i.d. 9. Synthroid 100 mcg p.o. q.a.m. 10. Mometasone furoate 0.1% topical to affected areas daily. 11. Oxycodone/acetaminophen 10/325 one tab p.o. q.4 hours p.r.n. pain. 12. Potassium chloride liquid 20 mEq p.o. daily. 13. Cefuroxime 500 mg p.o. b.i.d. 14. Docusate 100 mg p.o. b.i.d. 15. Milk of magnesia 30 mL p.o. q.6 hours p.r.n. constipation. 16. MiraLAX 17 g mix with water p.o. daily. 17. Prednisone 10 mg tablets 5 tabs p.o. daily for 5 days then taper by 1 tab every 2 days until finished. 18. Senna 2 tabs p.o. q.h.s. HOSPITAL COURSE: The patient was admitted through the emergency department with worsening shortness of breath. At baseline, she has O2 dependent COPD. She was initially admitted to the ICU due to her hypoxic respiratory failure and placed on Vapotherm with good result. She was treated with Levaquin and cefepime initially, but treated with ceftriaxone and azithromycin for most of her hospital stay and she completed a 5-day course of azithromycin. By day 3 of hospital stay, she had improvement in her breathing, but had developed some abdominal pain and constipation. Her constipation was treated aggressively and by the day of discharge, she was moving her bowels and feeling improvement in abdominal distention and pain. She did have episodes of third degree heart block in the ICU monitoring and telemetry monitoring which were asymptomatic and not directly treated. Her compression fractures were seen on imaging, but were thought to be at baseline. She did require some pain medicine while she was here in the hospital. The laboratory tests of noted would be that her D- dimer was elevated at 575. CTA chest showed emphysema but no pulmonary emboli. Ejection fraction was 50% to 55% on echocardiogram. She had initial blood gas with pH of 7.41, pCO2 of 55, pO2 of 72. Her procalcitonin level was less than 0.1. BNP was 59. Her influenza A and B swabs were negative. On day of discharge, she had an abdominal film because of constipation which showed a AAA stent in place with a nonspecific bowel or gas pattern. So the patient's respiratory and bowel status improved and she was ready for discharge on the 01/01/18. The patient was able to ambulate to the bathroom and the hallway and she was on her baseline oxygen. DISPOSITION: To home. ACTIVITY: As tolerated. DIET: Should be low salt. DISCHARGE FOLLOWUP: She could follow up with her primary care doctor within 1 week. [id number]/[facility] #: [id number] JHONNY
== END 2018-01-01 18:06 | disposition home or self-care (01) | DRG 190 ==
LOC: ED 14:33 → ICU 19:01 → MEDTELE 12-28 17:41
PROVIDERS: ADMIT Internal Medicine; ATTEND Internal Medicine
PROC: 5A09457 Assistance with Respiratory Ventilation, 24-96 Consecutive Hours, Continuous Positive Airway Pressure (ICD-10-PCS; principal; 2017-12-27)
DX: J44.1 Chronic obstructive pulmonary disease with (acute) exacerbation (principal); J96.21 Acute and chronic respiratory failure with hypoxia; Z99.81 Dependence on supplemental oxygen; E83.42 Hypomagnesemia; E87.6 Hypokalemia; I44.0 Atrioventricular block, first degree; E78.5 Hyperlipidemia, unspecified; I10 Essential (primary) hypertension; E03.9 Hypothyroidism, unspecified; Z66 Do not resuscitate; M81.0 Age-related osteoporosis without current pathological fracture; F41.9 Anxiety disorder, unspecified; K59.00 Constipation, unspecified; K57.90 Diverticulosis of intestine, part unspecified, without perforation or abscess without bleeding; F17.210 Nicotine dependence, cigarettes, uncomplicated; M48.50XD Collapsed vertebra, not elsewhere classified, site unspecified, subsequent encounter for fracture with routine healing; Z79.891 Long term (current) use of opiate analgesic; Z79.52 Long term (current) use of systemic steroids; Z79.899 Other long term (current) drug therapy; Z88.0 Allergy status to penicillin; Z82.5 Family history of asthma and other chronic lower respiratory diseases
CPT/HCPCS: 36415; 36600; 71046; 71275; 74018; 80053; 81003; 81015; 82550; 82803; 83605; 83735; 83880; 84145; 84484; 85025; 85379; 85384; 85610; 85652; 85730; 86140; 86850; 86900; 86901; 87040; 87086; 87641; 90686; 93005; 93306; 94640; 99285; 99406; A9270-GY; G8978-GP-CJ; G8979-GP-CH; J0456; J0692; J0696; J1644; J1940; J2920; J2930; J3475; J3480; J7512; Q9967

== ENCOUNTER 2018-03-18 21:22 | Observation (INO) | payer MEDICARE ==
[2018-03-18] MEDS ORDERED: Morphine VIAL* 4 MG/ML VIAL (1 ml vial) IV ONE (21:49)
[2018-03-18] MEDS ORDERED: Ondansetron INJ* 2 MG/ML VIAL IV ONE (21:50)
--- NOTE | 2018-03-18 21:54 | ED ---
HPI Chest Pain - HPI Summary HPI Summary: Patient is a 82 y/o F presenting to ED via ambulance with complaints of right sided chest pain with radiation to right arm, shoulder and back for the past three days. Fall, trauma, injury is denied. Pain onset suddenly and has progressively worsened with further exacerbation tonight. Patient denies SOB, notes that she is a current smoker and has home o2. She states she is not on o2 constantly. Patient notes that her feet are swollen and that she feels congested. On triage, pain is rated 5/10, movement is noted to aggravate, nothing is noted to alleviate Sx, no treatment RNFA is reported. Home medications and allergies are reviewed. - History of Current Complaint Chief Complaint: EDBackInjuryPain Time Seen by Provider: 03/18/18 21:35 Hx Obtained From: Patient Onset/Duration: Started Days Ago - 3, Atraumatic, Still Present, Worse Since Timing: Constant, Lasting Days - 3 Initial Severity: Mild Current Severity: Moderate - 5/10 Pain Intensity: 5 Pain Scale Used: 0-10 Numeric - 5 Chest Pain Location: Right Anterior Chest Pain Radiates: Yes Chest Pain Radiates To:: Back - right, Shoulder - right, Arm - right Aggravating Factor(s): Movement Alleviating Factor(s): Nothing Associated Signs and Symptoms: Positive: Chest Pain, Swelling - feet, Back Pain , Other: - right arm, shoulder pain endorsed, no trauma, fall, injury reported. Negative: Shortness of Breath - Additional Pertinent History Primary Care Physician: [id number] - Allergy/Home Medications Allergies/Adverse Reactions: Allergies Allergy/AdvReac Type Severity Reaction Status Date / Time Penicillins Allergy Hives Verified 09/27/17 08:15 Home Medications: Home Medications Potassium Chlor TAB* [Klor Con ER TAB*] 20 meq PO DAILY 03/19/18 [History Confirmed 03/19/18] PMH/Surg Hx/FS Hx/Imm Hx Endocrine/Hematology History: Reports: Hx Thyroid Disease Denies: Hx Diabetes Cardiovascular History: Reports: Hx Aneurysm, Hx Hypercholesterolemia, Hx Hypertension Denies: Hx Congestive Heart Failure - ? 1999 per pt, no edema, denies s/s receiving visipaque, Hx Pacemaker/ICD Respiratory History: Reports: Hx Chronic Obstructive Pulmonary Disease (COPD), Other Respiratory Problems/Disorders - occassional,exertional sob Denies: Hx Asthma GI History: Denies: Other GI Disorders History: Denies: Hx Kidney Stones, Hx Renal Disease Musculoskeletal History: Reports: Hx Back Problems - compression fractures Sensory History: Reports: Hx Contacts or Glasses Denies: Hx Hearing Aid, Hx Hearing Problem, Other Sensory Impairments Opthamlomology History: Reports: Hx Contacts or Glasses Denies: Other Sensory Impairments Neurological History: Reports: Hx Dementia Psychiatric History: Reports: Hx Anxiety, Hx Panic Disorder - A LITTLE - Surgical History Surgery Procedure, Year, and Place: APPY,HYSTERECTOMY,TUBAL LIGATION, LAP SANDHYA, EYELID PARTIAL REMOVAL,throat benign polyp, aortic aneurysm-CLEARED 1.5 PER [facility] SCANNED INTO OTHER OR PROCEDURES. HEMORROIDECTOMY-BILATERAL CATARACTS Infectious Disease History: Yes Infectious Disease History: Denies: Traveled Outside the [place] in Last 30 Days - Family History Known Family History: Negative: Cardiac Disease, Hypertension, Diabetes - Social History Alcohol Use: Rare Substance Use Type: Reports: None Hx Tobacco Use: Yes Smoking Status (MU): Heavy Every Day Tobacco Smoker Type: Cigarettes Length of Time of Smoking/Using Tobacco: 60 years Have You Smoked in the Last Year: Yes Review of Systems Positive: Other - NEGATIVE - FALL, INJURY, TRAUMA Positive: Chest Pain Positive: Other - POSITIVE - CONGESTION . Negative: Shortness Of Breath Positive: Edema - FEET , Other - POSITIVE - RIGHT ARM, SHOULDER AND BACK PAIN All Other Systems Reviewed And Are Negative: Yes Physical Exam - Summary Physical Exam Summary: VITAL SIGNS: Reviewed. GENERAL: Patient is a well-developed and nourished FEMALE who is lying comfortable in the stretcher. Patient is not in any acute respiratory distress. Tenderness at right back HEAD AND FACE: No signs of trauma. No ecchymosis, hematomas or skull depressions. No sinus tenderness. EYES: PERRLA, EOMI x 2, No injected conjunctiva, no nystagmus. EARS: Hearing grossly intact. Ear canals and tympanic membranes are within normal limits. MOUTH: Oropharynx within normal limits. NECK: Supple, trachea is midline, no adenopathy, no JVD, no carotid bruit, no c- spine tenderness, neck with full ROM. CHEST: Symmetric, tenderness with palpation at right chest LUNGS: Decreased breath sounds bilaterally. No wheezing or crackles. CVS: Regular rate and rhythm, S1 and S2 present, no murmurs or gallops appreciated. ABDOMEN: Soft, non-tender. No signs of distention. No rebound no guarding, and no masses palpated. Bowel sounds are normal. EXTREMITIES: FROM in all major joints, bilateral pitting pedal edema 2+, no cyanosis or clubbing. NEURO: Alert and oriented x 3. No acute neurological deficits. Speech is normal and follows commands. SKIN: Dry and warm Triage Information Reviewed: Yes Vital Signs On Initial Exam: Initial Vitals Temp Pulse Resp BP Pulse Ox 99.1 F 82 18 150/75 93 03/18/18 21:24 03/18/18 21:24 03/18/18 21:24 03/18/18 21:24 03/18/18 21:24 Vital Signs Reviewed: Yes Diagnostics - Vital Signs Vital Signs Temp Pulse Resp BP Pulse Ox 03/18/18 21:24 99.1 F 82 18 150/75 93 - Laboratory Result Diagrams: 03/18/18 22:24 03/18/18 22:24 Lab Statement: Any lab studies that have been ordered have been reviewed, and results considered in the medical decision making process. - Radiology CXR Radiology Interpretation Completed By: ED Physician Summary of Radiographic Findings: CXR showed hyperinflation, possible right lower lobe infiltrate, pending official report. - CT CTA Chest/Thorax CT Interpretation Completed By: Radiologist Summary of CT Findings: CTA CHEST/THORAX IMPRESSION: 1. No visible acute pulmonary embolism. 2. There is stable mild to moderate centrilobular emphysema. 3. There is increased right base atelectatic change, cannot exclude a component. of patchy pneumonitis in the right lower lobe base. 4. No aortic dissection. THIS REPORT WAS REVIEWED BY ED PHYSICIAN. - EKG 2205 Cardiac Rate: NL - rate of 81 bpm EKG Rhythm: Sinus Rhythm Summary of EKG Findings: EKG showed sinus rhythm with rate of 81 BPM. Normal axis. Normal interval. No ischemic changes. Re-Evaluation - Re-Evaluation First Eval Re-Evaluation Time: 01:50 Comment: Results of labs and tests were discussed with patient, patient is agreeable with admission. Chest Pain Course/Dx - Course Course Of Treatment: Patient is a 82 y/o F presenting to ED via ambulance with complaints of right sided chest pain with radiation to right arm, shoulder and back for the past three days. Fall, trauma, injury is denied. Pain onset suddenly and has progressively worsened with further exacerbation tonight. Patient denies SOB, notes that she is a current smoker and has home o2. She states she is not on o2 constantly. Patient notes that her feet are swollen and that she feels congested. On physical exam, tenderness at right chest, right back is noted. Decreased breath sounds bilaterally, pitting pedal edema 2+. EKG showed sinus rhythm with rate of 81 BPM. Normal axis. Normal interval. No ischemic changes. Labs showed WBC 8.2, RBC 3.55, MCV 103, MCH 35, potassium 3.2 , chloride 99, carbon dioxide 36, glucose 91, lactic acid 1.2, CRP 1.48. BNP 37 , trop 0. EKG showed sinus rhythm with rate of 81 BPM. Normal axis. Normal interval. No ischemic changes. CXR showed hyperinflation, possible right lower lobe infiltrate, pending official report. CTA CHEST/THORAX IMPRESSION: 1. No visible acute pulmonary embolism. 2. There is stable mild to moderate centrilobular emphysema. 3. There is increased right base atelectatic change, cannot exclude a component. of patchy pneumonitis in the right lower lobe base. 4. No aortic dissection. During ED course, patient received Klor Con Er Tab 40 meq PO ED ONCE ONE, Zofran 8 mg IV ED ONCE ONE, Morphine 4 mg IV ED ONCE ONE, and Levaquin 750 mg Ivpremix 750 mg in 150 mls @ 100 mls/hr IVPB ED ONCE ONE. Results of labs and tests were discussed with patient, patient is agreeable with admission. Patient's case was discussed with Dr. Bennett, Dr. Bennett accepts patient for admission. - Diagnoses Provider Diagnoses: PNA (pneumonia) - Provider Notifications Discussed Care Of Patient With: Meenakshi Bennett Time Discussed With Above Provider: 02:01 Instructed by Provider To: Other - Patient's case was discussed with Dr. Bennett , Dr. Bennett accepts patient for admission. Discharge - Sign-Out/Discharge Documenting (check all that apply): Patient Departure - admit - Discharge Plan Condition: Good Disposition: ADMITTED TO [facility] Referrals: Chuy Chappell MD [Primary Care Provider] - - Attestation Statements Document Initiated by Scribe: Yes Documenting Scribe: MARIAN JACOBO Provider For Whom Scribe is Documenting (Include Credential): ASHOK ELFAR, MD Scribe Attestation: MARIAN Azar , scribed for ASHOK MUJICA MD on 03/19/18 at 0332. Status of Scribe Document: Ready
[2018-03-18 22:37] LABS: ABS Basophils 0.1 10^3/ul (0-0.2); ABS Eosinophils 0.1 10^3/ul (0-0.6); ABS Lymphocytes 1.4 10^3/ul (1.0-4.8); ABS Monocytes 0.6 10^3/ul (0-0.8); ABS Nucleated RBC 0 10^3/ul; Eosinophil % 1.4 %; Hematocrit 37 % (35-47); Hemoglobin 12.4 g/dl (12.0-16.0); Lymphocyte % 17.2 %; Mean Corpuscular HGB Conc 34 g/dl (31-36); Mean Corpuscular Hemoglobin 35 pg (27-31); Mean Corpuscular Volume 103 fL (80-97); Nucleated Red Blood Cells % 0.1; Platelet Count 244 10^3/ul (150-450); Red Blood Count 3.55 10^6/ul (4.00-5.40); Red Cell Distribution Width 13 % (10.5-15); White Blood Count 8.2 10^3/ul (3.5-10.8)
[2018-03-18 22:46] LABS: INR 0.87 (0.77-1.02)
[2018-03-18 22:54] LABS: EGFR Non-African American 78.4 (>60)
[2018-03-18] MEDS ORDERED: Potassium Chlor TAB* 20 MEQ TAB.ER PO ONE (23:05)
[2018-03-18] MEDS ORDERED: Iodixanol* (CONTRAST) 320 MG/ML 100 ML SDV IV ONE (23:29)
[2018-03-19] MEDS ORDERED: Levofloxacin 750 MG IVPREMIX(* 750 MG/150 ML BAG IVPB ONE (02:00)
[2018-03-19] MEDS ORDERED: Polyethylene Glycol 3350* 17 GM PACKET PO PRN (03:01)
[2018-03-19] MEDS ORDERED: Magnesium Hydroxide LIQ* 30 ML UDC PO PRN (03:01)
[2018-03-19] MEDS ORDERED: Senna TAB PO PRN (03:01)
[2018-03-19] MEDS ORDERED: Docusate CAP* 100 MG PO PRN (03:01)
[2018-03-19] MEDS: Heparin VIAL(*) 5000 UNITS/ML VIAL (FIVE THOUSAND) SUBCUT SCH ×3 (04:53→21:22)
[2018-03-19] MEDS: Lidocaine PATCH 5%* 1 PATCH TRANSDERM SCH ×2 (04:53→09:33)
[2018-03-19] MEDS: Levothyroxine TAB* 100 MCG TAB PO SCH (05:45)
--- NOTE | 2018-03-19 06:10 | HP ---
CC: Dr. Chappell HISTORY AND PHYSICAL: DATE OF ADMISSION: 03/19/18. TIME OF EVALUATION: 2:40 a.m. PRIMARY CARE PROVIDER: Dr. Chappell. CHIEF COMPLAINT: Chest pain. HISTORY OF PRESENT ILLNESS: Mrs. Saucedo is an 82-year-old lady with a past medical history of hyper lipidemia, hypertension, hypothyroidism, anxiety, COPD on home O2, diverticulosis, who presents to [facility] emergency room with complaints of right-sided chest pain radiating to her breast, arm, and back. She stated that the pain started a couple of days when she bent over to reach something, but it becam e severe today to the point that she could not catch her breath, reason why she came to the emergency room for evaluation. She denies history of fall or trauma. The pain is worse when she moves. She denies changes in her breathing. Her cough has been its usual. No increase in secretions. No fever , no chills. She denies nausea and vomiting. PAST MEDICAL HISTORY: 1. Hyperlipidemia. 2. Hypertension. 3. Hypothyroidism. 4. Anxiety. 5. COPD on home O2 at night. 6. Diverticulosis. 7. Osteoporosis with vertebral compression fracture. 8. Abdominal aortic aneurysm with endovascular repair. 9. Diverticulosis. 10. Left-sided chest wall shingles. PAST SURGICAL HISTORY: 1. Status post appendectomy. 2. Status post hysterectomy. 3. Status post cholecystectomy. 4. Status post cataract surgery. MEDICATION LIST: The patient does not recall what medications she take. So, this list is from her l ast discharge in December 2017. 1. Albuterol HFA 2 puffs inhaled q.6 hours p.r.n. shortness of breath. 2. Alendronate 70 mg p.o. weekly. 3. Alprazolam 0.25 mg p.o. q.8 hours as needed for anxiety. 4. Atorvastatin 10 mg p.o. daily. 5. Symbicort 160/4.5 two puffs inhaled b.i.d. 6. Colace 180 g p.o. b.i.d. as needed for constipation. 7. Fluticasone nasal spray 15 mcg 2 sprays to both nares daily. 8. Furosemide 10 mg p.o. daily. 9. Gabapentin 300 mg t.i.d. 10. Levothyroxine 100 mg p.o. daily. 11. Milk of magnesia 30 mL p.o. q.6 hours p.r.n. constipation. 12. Elocon 0.1% topical daily. 13. Percocet 10/325 one tablet p.o. q.4 hours p.r.n. pain. 14. MiraLAX 17 g p.o. daily as needed for constipation. 15. Potassium chloride 10 mEq p.o. daily. 16. Senna 2 tablets p.o. at bedtime as needed for constipation. ALLERGIES: With PENICILLIN the patient had hives. FAMILY HISTORY: Her father had a history of COPD. SOCIAL HISTORY: The patient is a smoker since she was 10 years old. She occasionally drinks wine. No history of drug use. Surrogate decision maker is her daughter, Jada Ace. Phone number is [phone]. REVIEW OF SYSTEMS: A 14-point review of systems was performed and all the pertinent negative and pos itive findings are in the HPI. PHYSICAL EXAMINATION GENERAL: The patient is an elderly lady, lying in the ED stretcher in moderate distress secondary to pain as she has just returned from the bedside commode to her stretcher. VITAL SIGNS: Temperature 99.1, heart rate is 69, respiratory rate is 19, oxygen saturation is 95% on 2 L nasal cannula, and blood pressure is 131/70. HEENT: Pupils are equal. Moist mucous membranes. CVS: Normal S1, S2. Regular rate and rhythm. CHEST: Breath sounds bilaterally, with no added sounds, diminished. The patient has pain on palpati on of the right anterior chest wall. There is no rash in the painful area. ABDOMEN: Soft, nontender, nondistended. Bowel sounds are present. EXTREMITIES: No edema. NEUROLOGIC: She is alert, awake and oriented x3, able to move all 4 extremities. LABORATORY AND IMAGING DATA: The patient had a CBC that showed a WBC of 8.2, hemoglobin of 12.4, he matocrit of 37, platelets of 244 with 73% neutrophils. INR is 0.8. Chemistry showed a sodium 141, p otassium 3.2, chloride of 99, bicarb of 36, BUN of 11, creatinine of 0.71, glucose of 91, lactic acid 1.2, calcium of 9.5. LFTs are normal. CRP is 1.4. CTA of the chest showed no acute pulmonary embolism, stable mild to moderate central lobular emphysem a. There is increased right basilar atelectatic change, cannot exclude a component of patchy pneumon itis in the right lower lobe base. No aortic dissection. EKG done on 03/18/18 at 2202 shows sinus rhythm at 81 beats per minute with no ST-T changes. No sign ificant change when compared to her prior EKG from December 2017. ASSESSMENT AND PLAN: Ms. Saucedo is an 82-year-old lady with a past medical history of hyperlipidemi a, hypertension, hypothyroidism, anxiety, COPD, diverticulosis, osteoporosis, vertebral compression f ractures, abdominal aortic aneurysm, who presents to the emergency room with complaints of right-side d chest pain. 1. Right-sided chest pain. I suspect her pain is musculoskeletal in nature as it is reproducible wi th palpation. There is no rash at this time to suggest zoster. The CTA was negative for PE and aorti c dissection. She does have increased atelectasis in the right base, but her respiratory symptoms burdick ve not changed and I do not see signs of inflammation or infection on her lab tests with a normal WBC and a negative CRP. I suspect the atelectasis is a consequence of her pain and not the cause. She received one dose of levofloxacin in the emergency room, but I am not going to continue antibiotics f or now. She would be reevaluated in the morning and depending on how her symptoms progress antibioti cs can be added at that time, but right now I am not convinced that she has an infection. The patient will receive pain management with morphine and oxycodone and I am also going to order lid ocaine patch to the painful area. 2. Chronic obstructive pulmonary disease, appears to be stable at this time. Continue supplemental o xygen, bronchodilators, and inhaled steroids. 3. Hypothyroidism. We will continue levothyroxine. 4. Anxiety. We will continue alprazolam. 5. Hyperlipidemia. We will continue atorvastatin. 6. DVT prophylaxis. The patient has a score of 3 on the DVT Prophylaxis Risk Assessment Guide and s hould be started on subcutaneous heparin. 7. Code status: Do not resuscitate. TIME SPENT: Approximately 55 minutes was spent with the patient interview, medical records review, p hysical examination to complete this admission. More than half of this time was spent [id number] w ith the patient in coordination of care. [id number]/[facility] #: [id number]
[2018-03-19] MEDS: Mometasone/Formoter 200/5 MDI INH SCH ×2 (07:54→20:20)
[2018-03-19 08:36] LABS: ABS Basophils 0.1 10^3/ul (0-0.2); ABS Eosinophils 0.2 10^3/ul (0-0.6); ABS Lymphocytes 1.3 10^3/ul (1.0-4.8); ABS Monocytes 0.5 10^3/ul (0-0.8); ABS Neutrophils 3.5 10^3/ul (1.5-7.7); ABS Nucleated RBC 0 10^3/ul; Eosinophil % 2.7 %; Hematocrit 34 % (35-47); Hemoglobin 11.3 g/dl (12.0-16.0); Lymphocyte % 23.6 %; Mean Corpuscular HGB Conc 34 g/dl (31-36); Mean Corpuscular Hemoglobin 35 pg (27-31); Mean Corpuscular Volume 104 fL (80-97); Nucleated Red Blood Cells % 0; Platelet Count 221 10^3/ul (150-450); Red Blood Count 3.26 10^6/ul (4.00-5.40); Red Cell Distribution Width 13 % (10.5-15); White Blood Count 5.6 10^3/ul (3.5-10.8)
[2018-03-19 08:48] LABS: EGFR Non-African American 78.4 (>60)
[2018-03-19] MEDS: Gabapentin CAP(*) 300 MG PO SCH ×4 (09:32→21:22)
[2018-03-19] MEDS: Furosemide TAB* 20 MG PO SCH (09:32)
[2018-03-19] MEDS: Potassium Chlor TAB* 20 MEQ TAB.ER PO SCH (09:32)
[2018-03-19] MEDS: Atorvastatin* 20 MG TAB PO SCH (09:32)
[2018-03-19] MEDS: Morphine VIAL* 4 MG/ML VIAL (1 ml vial) IV PRN ×2 (09:43→22:30)
[2018-03-19] MEDS ORDERED: Ketorolac INJ* 30 MG/ML 1 ML VIAL IV PUSH ONE (11:13)
--- NOTE | 2018-03-19 11:25 | PN ---
Subjective Date of Service: 03/19/18 Interval History: Pt endorsing severe pain with movement of R arm as well as with any palpation of R side of back, right shoulder, and right side of chest. Denies numbness or tingling in upper extremities. Patient says her shortness of breath is at her baseline for her, on her regular home O2. Pt says she has chronic constipation and bloating, with last BM day before yesterday. Denies abdominal pain, nausea/ vomiting, dizziness headache. Pt is tearful and anxious about her pain. Objective Active Medications: Albuterol (Ventolin Hfa Inhaler*) 2 puff INH Q6H PRN PRN Reason: SHORTNESS OF BREATH Alprazolam (Xanax Tab*) 0.25 mg PO Q8H PRN PRN Reason: ANXIETY Atorvastatin Calcium (Lipitor*) 20 mg PO DAILY [facility] Last Admin: 03/19/18 09:32 Dose: 20 mg Docusate Sodium (Colace Cap*) 100 mg PO BID PRN PRN Reason: CONSTIPATION Fluticasone Propionate (Flonase Nasal [place] 50mcg*) 2 spray BOTH NARES DAILY [facility] Furosemide (Lasix Tab*) 20 mg PO DAILY [facility] Last Admin: 03/19/18 09:32 Dose: 20 mg Gabapentin (Neurontin Cap(*)) 300 mg PO TID [facility] Last Admin: 03/19/18 09:32 Dose: Not Given Heparin Sodium (Porcine) (Heparin Vial(*)) 5,000 units SUBCUT Q8HR [facility] Last Admin: 03/19/18 04:53 Dose: 5,000 units Ketorolac Tromethamine (Toradol Inj*) 30 mg IV PUSH ONCE ONE Stop: 03/19/18 11:14 Levothyroxine Sodium (Synthroid Tab*) 100 mcg PO QAM@0600 [facility] Last Admin: 03/19/18 05:45 Dose: 100 mcg Lidocaine (Lidoderm 5% Patch*) 1 patch TRANSDERM DAILY [facility] Last Admin: 03/19/18 09:33 Dose: Not Given Magnesium Hydroxide (Milk Of Magnesia Liq*) 30 ml PO Q6H PRN PRN Reason: CONSTIPATION Mometasone Furoate/Formoterol Fumar (Dulera 200/5 Mdi*) 2 puff INH BID [facility]; Protocol Last Admin: 03/19/18 07:54 Dose: 2 puff Morphine Sulfate (Morphine Vial*) 1 mg IV Q1H PRN PRN Reason: SEVERE PAIN Last Admin: 03/19/18 09:43 Dose: 1 mg Oxycodone HCl (Roxycodone Tab*) 10 mg PO Q4H PRN PRN Reason: Moderate to severe pain Pharmacy Profile Note (Lidocaine Patch Remove*) 1 note PATCH OFF 1600 [facility] Polyethylene Glycol/Electrolytes (Miralax*) 17 gm PO DAILY PRN PRN Reason: CONSTIPATION Potassium Chloride (Klor Con Er Tab*) 20 meq PO DAILY [facility] Last Admin: 03/19/18 09:32 Dose: 20 meq Senna (Senokot Tab*) 2 tab PO BEDTIME PRN PRN Reason: CONSTIPATION Vital Signs - 8 hr 03/19/18 03/19/18 03/19/18 03:18 04:02 04:20 Temperature 98.2 F 97.5 F Pulse Rate 68 73 Respiratory 20 16 20 Rate Blood Pressure 131/70 124/57 (mmHg) O2 Sat by Pulse 99 93 Oximetry 03/19/18 03/19/18 03/19/18 07:25 07:55 09:43 Temperature 97.9 F Pulse Rate 69 88 Respiratory 22 20 Rate Blood Pressure 119/50 (mmHg) O2 Sat by Pulse 97 Oximetry Oxygen Devices in Use Now: Nasal Cannula Eyes: No Scleral Icterus Neck: NL Appearance and Movements; NL JVP, Trachea Midline Respiratory: Symmetrical Chest Expansion and Respiratory Effort, - - Lung sounds diminished. Regular work of breathing without accessory muscle usage. Cardiovascular: NL Sounds; No Murmurs; No JVD, RRR, - - Pain with palpation of R anterior chest and R side of back. No edema or rash noted Abdominal: NL Sounds; No Tenderness; No Distention Extremities: - - Trace lower extremity edema Skin: No Rash or Ulcers Neurological: Alert and Oriented x 3, NL Muscle Strength and Tone Nutrition: Taking PO's Result Diagrams: 03/19/18 05:38 03/19/18 05:38 Assess/Plan/Problems-Billing Assessment: - Patient Problems (1) Chest pain Current Visit: Yes Status: Resolved Code(s): R07.9 - CHEST PAIN, UNSPECIFIED SNOMED Code(s): 06291170 Comment: - Suspect musculoskeletal as pain is right sided, extends from anterior chest to back and arm, worse with palpation or movement of arm. - Pt does have known chronic right sided rib fractures, and T8/12 fractures ( neurosurg eval on prior visit did not recommend surgical intervention. Was supposed to follow up as outpt but nothing in medent noted) - Serial troponins were negative and EKG showed no acute ischemic changes. CTA negative for PE/aortic aneurysm/dissection. CXR with atelectasis. Afebrile, no leukocytosis, so PNA less likely - Continue pain management. Pt reports pain not managed with morphine and lidocaine patch. Will try one dose of toradol. Also has oxycodone and gabapentin ordered, but pt did not want to take. Counciled her on the need to take pain medication if she would like pain relief. (2) COPD (chronic obstructive pulmonary disease) Current Visit: Yes Status: Acute Code(s): J44.9 - CHRONIC OBSTRUCTIVE PULMONARY DISEASE, UNSPECIFIED SNOMED Code(s): 85364473 Comment: - No evidence of acute exacerbation. No wheezing on exam - Continue O2 support, dulera, albuterol prn (3) Compression fracture Current Visit: Yes Status: Acute Priority: High Code(s): DLT7287 - SNOMED Code(s): 601666006 Comment: - CXR and CTA demonstrate chronic fractures similar to prior imaging - Continue pain meds as above (4) Anxiety Current Visit: Yes Status: Chronic Code(s): F41.9 - ANXIETY DISORDER, UNSPECIFIED SNOMED Code(s): 16542382 Comment: - Supportive care - Continue home xanax PRN (5) Chronic constipation Current Visit: Yes Status: Acute Code(s): K59.09 - OTHER CONSTIPATION SNOMED Code(s): 562864066 Comment: - Continue senna and colace (6) DVT prophylaxis Current Visit: No Status: Acute Priority: High Code(s): BDL6150 - SNOMED Code(s): 339566681 Comment: - Heparin SQ (7) DNR (do not resuscitate) Current Visit: No Status: Acute Priority: High Status and Disposition: Anticipate discharge to home when medically stable.
[2018-03-19] MEDS: Fluticasone NASAL SPRAY 50MCG* 16 gm SPRAY BTL BOTH NARES SCH ×3 (11:54→21:19)
[2018-03-19] MEDS: Lidocaine Patch REMOVE* 1 NOTE MISC PATCH OFF SCH (18:19)
[2018-03-19] MEDS: ALPRAZolam TAB* 0.25 MG PO PRN (22:31)
[2018-03-20] MEDS: Albuterol HFA INHALER* 8 gm MDI INH PRN (03:59)
[2018-03-20] MEDS: Levothyroxine TAB* 100 MCG TAB PO SCH (05:24)
[2018-03-20] MEDS: Heparin VIAL(*) 5000 UNITS/ML VIAL (FIVE THOUSAND) SUBCUT SCH ×3 (05:24→21:32)
[2018-03-20 06:15] LABS: Hematocrit 33 % (35-47); Mean Corpuscular HGB Conc 34 g/dl (31-36); Mean Corpuscular Hemoglobin 35 pg (27-31); Mean Corpuscular Volume 104 fL (80-97); Mean Platelet Volume 8.5 fL (7.4-10.4); Platelet Count 199 10^3/ul (150-450); Red Blood Count 3.16 10^6/ul (4.00-5.40); Red Cell Distribution Width 13 % (10.5-15); White Blood Count 4.4 10^3/ul (3.5-10.8)
[2018-03-20 07:05] LABS: EGFR Non-African American 91.7 (>60)
[2018-03-20] MEDS: Morphine VIAL* 4 MG/ML VIAL (1 ml vial) IV PRN ×2 (07:31→10:22)
[2018-03-20] MEDS: Mometasone/Formoter 200/5 MDI INH SCH ×2 (07:46→19:55)
[2018-03-20] MEDS: Lidocaine PATCH 5%* 1 PATCH TRANSDERM SCH (09:47)
[2018-03-20] MEDS: Potassium Chlor TAB* 20 MEQ TAB.ER PO SCH (09:48)
[2018-03-20] MEDS: Fluticasone NASAL SPRAY 50MCG* 16 gm SPRAY BTL BOTH NARES SCH (09:48)
[2018-03-20] MEDS: Furosemide TAB* 20 MG PO SCH (09:48)
[2018-03-20] MEDS: Gabapentin CAP(*) 300 MG PO SCH ×4 (09:48→21:03)
[2018-03-20] MEDS: Atorvastatin* 20 MG TAB PO SCH (09:48)
[2018-03-20] MEDS ORDERED: Ergocalciferol CAP* 50000 UNIT PO ONE (12:19)
[2018-03-20] MEDS ORDERED: Acetaminophen TAB* 325 MG PO PRN (13:28)
[2018-03-20] MEDS: oxyCODONE TAB* 5 MG TAB PO PRN ×2 (13:43→21:31)
[2018-03-20] MEDS: Docusate CAP* 100 MG PO SCH ×2 (13:49→21:03)
[2018-03-20] MEDS: Polyethylene Glycol 3350* 17 GM PACKET PO SCH (13:50)
[2018-03-20] MEDS ORDERED: Senna TAB PO SCH (14:00)
[2018-03-20] MEDS: Lidocaine Patch REMOVE* 1 NOTE MISC PATCH OFF SCH (16:33)
--- NOTE | 2018-03-20 20:11 | PN ---
Subjective Date of Service: 03/20/18 Interval History: Pt still in a lot of pain. Imaging showing right rib fractures. Pt and daughter not aware of this. She took 1 of her oxycodone 10mg acetaminophen 325mg at home. Did not want to make her constipated. Dr. Chappell started her on Linzess and then she stopped taking her other bowel regimen. Refused po pain meds initially here, refused bowel regimen here. Wants to go home tomorrow not sooner not later. PT ordered they are recommending SNF. Has an appointment on Wednesday with Mane Mendosa. Objective Active Medications: Acetaminophen (Tylenol Tab*) 650 mg PO Q4H PRN PRN Reason: PAIN Albuterol (Ventolin Hfa Inhaler*) 2 puff INH Q6H PRN PRN Reason: SHORTNESS OF BREATH Last Admin: 03/20/18 03:59 Dose: 2 puff Alprazolam (Xanax Tab*) 0.25 mg PO Q8H PRN PRN Reason: ANXIETY Last Admin: 03/19/18 22:31 Dose: 0.25 mg Atorvastatin Calcium (Lipitor*) 20 mg PO DAILY [facility] Last Admin: 03/20/18 09:48 Dose: 20 mg Docusate Sodium (Colace Cap*) 100 mg PO BID [facility] Last Admin: 03/20/18 13:49 Dose: Not Given Fluticasone Propionate (Flonase Nasal [place] 50mcg*) 2 spray BOTH NARES DAILY [facility] Last Admin: 03/20/18 09:48 Dose: 2 spray Furosemide (Lasix Tab*) 20 mg PO DAILY [facility] Last Admin: 03/20/18 09:48 Dose: 20 mg Gabapentin (Neurontin Cap(*)) 300 mg PO TID [facility] Last Admin: 03/20/18 13:50 Dose: Not Given Heparin Sodium (Porcine) (Heparin Vial(*)) 5,000 units SUBCUT Q8HR [facility] Last Admin: 03/20/18 13:44 Dose: 5,000 units Levothyroxine Sodium (Synthroid Tab*) 100 mcg PO QAM@0600 [facility] Last Admin: 03/20/18 05:24 Dose: 100 mcg Lidocaine (Lidoderm 5% Patch*) 1 patch TRANSDERM DAILY [facility] Last Admin: 03/20/18 09:47 Dose: 1 patch Magnesium Hydroxide (Milk Of Magnesia Liq*) 30 ml PO Q6H PRN PRN Reason: CONSTIPATION Mometasone Furoate/Formoterol Fumar (Dulera 200/5 Mdi*) 2 puff INH BID [facility]; Protocol Last Admin: 03/20/18 19:55 Dose: 2 puff Oxycodone HCl (Roxycodone Tab*) 10 mg PO Q4H PRN PRN Reason: Moderate to severe pain Last Admin: 03/20/18 13:43 Dose: 10 mg Pharmacy Profile Note (Lidocaine Patch Remove*) 1 note PATCH OFF 1600 [facility] Last Admin: 03/20/18 16:33 Dose: 1 note Polyethylene Glycol/Electrolytes (Miralax*) 17 gm PO DAILY [facility] Last Admin: 03/20/18 13:50 Dose: Not Given Potassium Chloride (Klor Con Er Tab*) 20 meq PO DAILY [facility] Last Admin: 03/20/18 09:48 Dose: 20 meq Senna (Senokot Tab*) 2 tab PO BEDTIME [facility] Last Admin: 03/20/18 13:50 Dose: Not Given Vital Signs - 8 hr 03/20/18 03/20/18 03/20/18 13:41 13:43 15:43 Temperature 97.8 F Pulse Rate 79 Respiratory 17 17 16 Rate Blood Pressure 120/50 (mmHg) O2 Sat by Pulse 90 Oximetry 03/20/18 03/20/18 03/20/18 18:45 19:25 19:58 Temperature 98.0 F Pulse Rate 78 88 Respiratory 17 20 24 Rate Blood Pressure 108/42 (mmHg) O2 Sat by Pulse 91 89 Oximetry Oxygen Devices in Use Now: Nasal Cannula Appearance: NAD except with movement Eyes: No Scleral Icterus, PERRLA Neck: NL Appearance and Movements; NL JVP Respiratory: Symmetrical Chest Expansion and Respiratory Effort, Clear to Auscultation Cardiovascular: NL Sounds; No Murmurs; No JVD, - - posterior right ribs tender to palpation. Abdominal: - - soft, nontender, slightly distended. no rebound or guarding. Extremities: No Edema, - Skin: - - large ecchymosis on right tricep with rubbery nodular 2inch ovoid mass. Neurological: Alert and Oriented x 3 Nutrition: Taking PO's Result Diagrams: 03/20/18 05:55 03/20/18 05:55 Additional Lab and Data: Laboratory Results - last 24 hr 03/19/18 03/20/18 03/20/18 05:38 05:55 05:55 WBC 4.4 RBC 3.16 L Hgb 11.0 L Hct 33 L MCV 104 H MCH 35 H MCHC 34 RDW 13 Plt Count 199 MPV 8.5 Sodium 141 141 Potassium 3.7 4.2 Chloride 101 103 Carbon Dioxide 33 H 34 H Anion Gap 7 4 BUN 10 9 Creatinine 0.71 0.62 Est GFR ( Amer) 94.9 111.0 Est GFR (Non-Af Amer) 78.4 91.7 BUN/Creatinine Ratio 14.1 14.5 Glucose 105 H 97 Calcium 9.1 9.3 Troponin I 0.00 25-OH Vitamin D Total 12.2 L Cancelled Microbiology and Other Data: Microbiology 03/18/18 22:08 Blood Venous Aerobic Blood Culture - Preliminary No Growth Day 1 03/18/18 22:08 Blood Venous Anaerobic Blood Culture - Preliminary No Growth Day 1 03/18/18 22:28 Blood Venous Aerobic Blood Culture - Preliminary No Growth Day 1 03/18/18 22:28 Blood Venous Anaerobic Blood Culture - Preliminary No Growth Day 1 Assess/Plan/Problems-Billing Assessment: 82 yo female PMH COPD on home O2, HTN, HLD, anxiety, Diverticulosis, frequent constipation (and just started on Linzess for consideration of IBS by PCP), AAA s/p endovascular repair, osteoporosis. Presenting with uncontrolled right rib pain with known (though unknown to pt and family) right rib fractures. Vitamin D deficiency - Patient Problems (1) Chest pain Current Visit: Yes Status: Resolved Code(s): R07.9 - CHEST PAIN, UNSPECIFIED SNOMED Code(s): 36228718 Comment: - Suspect musculoskeletal as pain is right sided, extends from anterior chest to back and arm, worse with palpation - she was refusing her pain meds at home and some here. IV morphine giving her 1 hour relief. Changing back to oxycodone 10mg po q4h prn now with anticipated discharge tomorrow. Keep observation status as she does not meet criteria for inpatient admission. manager of customer billing informed her of this. Continue lidocaine patch. Tylenol. Did not report improvement with Toradol. - Pt does have known (though not to her or family) of right sided rib fractures , and T8/12 fractures (neurosurg eval on prior visit did not recommend surgical intervention. - Serial troponins were negative and EKG showed no acute ischemic changes. CTA negative for PE/aortic aneurysm/dissection. CXR with atelectasis. Afebrile, no leukocytosis, so PNA less likely (2) COPD (chronic obstructive pulmonary disease) Current Visit: Yes Status: Acute Code(s): J44.9 - CHRONIC OBSTRUCTIVE PULMONARY DISEASE, UNSPECIFIED SNOMED Code(s): 18249933 Comment: - No evidence of acute exacerbation. No wheezing on exam - Continue O2 support, dulera, albuterol prn (3) Chronic constipation Current Visit: Yes Status: Acute Code(s): K59.09 - OTHER CONSTIPATION SNOMED Code(s): 024131415 Comment: - Had long talk about this. She has been refusing her bowel regimen of miralax, senna and colace. - restart her home linzess. (4) Compression fracture Current Visit: Yes Status: Acute Priority: High Code(s): KCY0485 - SNOMED Code(s): 187350017 Comment: - CXR and CTA demonstrate chronic fractures similar to prior imaging - Continue pain meds as above (5) AAA (abdominal aortic aneurysm) Current Visit: No Status: Acute Priority: High Code(s): I71.4 - ABDOMINAL AORTIC ANEURYSM, WITHOUT RUPTURE SNOMED Code(s): 670184902 Comment: - Hx of infrarenal AAA measuring 6.2 cm and underwent endovascular (endograft) repair with a modular bifurcated prosthesis in 2013 (6) Vitamin D deficiency Current Visit: Yes Status: Acute Code(s): E55.9 - VITAMIN D DEFICIENCY, UNSPECIFIED SNOMED Code(s): 28594000 Comment: Checked and low at 12.2. Gave [id number] ergocalciferol. (7) Osteoporosis Current Visit: Yes Status: Acute Code(s): M81.0 - AGE-RELATED OSTEOPOROSIS W /O CURRENT PATHOLOGICAL FRACTURE SNOMED Code(s): 96866089 Comment: follow-up with Dr. Chappell. They have been trying to get medication starting with F (likely fosamax) as outpatient though insurance was declining. Status and Disposition: observation status, does not met inpatient criteria. Pt deciding to leave 03/21 no sooner or later. F/u PT recs: would benefit from SNF.
[2018-03-20] MEDS: ALPRAZolam TAB* 0.25 MG PO PRN (23:50)
[2018-03-21] MEDS ORDERED: Albuterol 2.5 MG/3 ML NEB.SOL* (0.083%) INH PRN (03:37)
[2018-03-21] MEDS: Levothyroxine TAB* 100 MCG TAB PO SCH (06:13)
[2018-03-21] MEDS: Heparin VIAL(*) 5000 UNITS/ML VIAL (FIVE THOUSAND) SUBCUT SCH ×2 (06:13→14:36)
[2018-03-21] MEDS: Mometasone/Formoter 200/5 MDI INH SCH (07:29)
[2018-03-21] MEDS: Albuterol HFA INHALER* 8 gm MDI INH PRN (07:29)
[2018-03-21] MEDS: Atorvastatin* 20 MG TAB PO SCH (08:07)
[2018-03-21] MEDS: Potassium Chlor TAB* 20 MEQ TAB.ER PO SCH (08:07)
[2018-03-21] MEDS: Furosemide TAB* 20 MG PO SCH (08:07)
[2018-03-21] MEDS: Fluticasone NASAL SPRAY 50MCG* 16 gm SPRAY BTL BOTH NARES SCH (08:08)
[2018-03-21] MEDS: Docusate CAP* 100 MG PO SCH (08:08)
[2018-03-21] MEDS: oxyCODONE TAB* 5 MG TAB PO PRN ×2 (08:08→14:19)
[2018-03-21] MEDS: Lidocaine PATCH 5%* 1 PATCH TRANSDERM SCH (08:08)
[2018-03-21] MEDS: Gabapentin CAP(*) 300 MG PO SCH ×2 (08:08→12:48)
[2018-03-21 08:09] LABS: EGFR Non-African American 88.4 (>60)
[2018-03-21] MEDS: Polyethylene Glycol 3350* 17 GM PACKET PO SCH (08:09)
[2018-03-21 11:28] VITALS: BP 119/58
[2018-03-21] MEDS ORDERED: Magnesium Sulfate 2 GM IV* 2 GM/50 ML BAG IVPB ONE (11:51)
--- NOTE | 2018-03-21 23:54 | DS ---
CC: Dr. Espitia; Dr. Alonzo Rankin; Dr. Kody Titus; Dr. Chuy Chappell * DISCHARGE SUMMARY: DATE OF ADMISSION: DATE OF DISCHARGE: 03/21/18 DISCHARGE DIAGNOSES: 1. Chest pain, right-sided, reproducible, unlikely cardiac; likely due to right rib fractures, nondisplaced. 2. Chronic obstructive pulmonary disease, not in acute exacerbation. 3. Chronic anxiety. DISCHARGE MEDICATIONS: They are as follows: 1. Tylenol 650 mg p.o. q.6 p.r.n. 2. Albuterol 2 puffs inhalation q.6 p.r.n. 3. Xanax 0.25 mg p.o. q.8 p.r.n. 4. Atorvastatin 20 mg p.o. daily. 5. Symbicort 160/4.5 two puffs inhalation b.i.d. 6. Colace 100 mg p.o. b.i.d. 7. Fluticasone nasal spray 2 sprays to both nares daily. 8. Lasix 20 mg p.o. daily. 9. Gabapentin 300 mg p.o. t.i.d. 10. Synthroid 100 mcg p.o. q.a.m. 11. Lidocaine patch 5% 1 patch daily transdermally. 12. Linzess 290 mcg p.o. daily. 13. Magnesium hydroxide 30 mL p.o. q.6 p.r.n. 14. Potassium chloride 20 mEq p.o. daily. 15. Alendronate 70 mg p.o. q. weekly. 16. Mometasone furoate 0.1% topically daily. 17. Percocet 10/325 one tab p.o. q.4 p.r.n. 18. MiraLAX 17 g p.o. daily. 19. Senna 2 tabs p.o. q.h.s. HISTORY OF PRESENT ILLNESS/HOSPITAL COURSE: The patient is an 82-year-old lady with history of hypothyroidism, hypertension, and COPD, on home O2, who presented to the emergency room on 03/19/18 with complaints of right- sided chest pain, radiating to her breast, arm, and back. She mentioned that she bent over to reach something on the day of admission and the pain became severe leading to her prompt evaluation in the ED and subsequent admission for chest pain. She has been ruled out for pulmonary embolism with a CT angio on admission on 03/18/18, which showed no visible acute pulmonary embolism with [id number] central lobular emphysema with right atelectatic base change and no aortic dissection. A chest x-ray done on 03/18/18 also showed nondisplaced fractures of the posterior right third and fourth ribs that were seen on 12/27/17 CT of the chest. Her cardiac enzymes/troponins have been negative x3 and given a low SARAH score of being equal to 1 along with reproducible chest pain, correlating with right rib fractures, a stress test has not been ordered given her chest pain is likely musculoskeletal as described above and doing a stress test with such a low SARHA score might lead to false positives. Her hypomagnesemia has been corrected prior to her discharge. She mentions that she has an early appointment tomorrow with her GI physician and would like to leave. Upon reviewing her data, I agree with her assessment and will be discharged, improved. REVIEW OF SYSTEMS: Chest pain as described above that is otherwise well controlled by her p.r.n. pain meds, but exacerbated by undo movements on her right side and it is tender. Other than this, denied any increased shortness of breath from baseline. Denied any headache, dizziness, fevers, chills, nausea , vomiting, abdominal pain, diarrhea, constipation, pain and/or increased frequency on urination, myalgias, arthralgias, throat pain, or new skin lesions. The rest of the 14-point review of systems are otherwise unremarkable. PHYSICAL EXAMINATION: Shows the most recent vital signs of records with blood pressure of 119/58, 85 beats per minute, 16 per minute respiratory rate, 97.6 degrees Fahrenheit. General Appearance: The patient is awake, alert, and oriented x3, not in acute distress. HEENT: Normocephalic, atraumatic. PERRLA. Extraocular muscles intact. Negative for icterus. Moist oral mucosa. Negative throat erythema. Neck: Soft, supple with no cervical lymphadenopathy. No JVD. Heart: S1, S2 within normal limits. Regular rate and rhythm. No murmurs, rubs, or gallops. Chest: Clear to auscultation bilaterally. Good air entry. No wheezes, rales, or rhonchi. She does have reproducible chest pain on her lateral and posterior right area correlating with rib fracture seen on chest x-ray. Abdomen: Soft, nondistended, nontender. Normoactive bowel sounds x4 quadrants. Extremities: No cyanosis, clubbing. No edema. Psychiatric: No active psychosis, depression, suicidal or homicidal ideations. Skin: Warm to touch. TIME SPENT: The total time spent evaluating the patient, reviewing pertinent data, and appropriate documentation is 50 minutes. [id number]/[facility] #: [id number] JHONNY
== END 2018-03-21 15:45 | disposition home or self-care (01) ==
LOC: ED 21:22 → MEDTELE 03-19 02:42
PROVIDERS: ADMIT Internal Medicine; ATTEND Internal Medicine
DX: R07.9 Chest pain, unspecified (principal); J44.9 Chronic obstructive pulmonary disease, unspecified; K59.09 Other constipation; I71.4 Abdominal aortic aneurysm, without rupture; F41.9 Anxiety disorder, unspecified; I10 Essential (primary) hypertension; M54.9 Dorsalgia, unspecified; R60.9 Edema, unspecified; F17.210 Nicotine dependence, cigarettes, uncomplicated; E55.9 Vitamin D deficiency, unspecified; M81.0 Age-related osteoporosis without current pathological fracture; E78.5 Hyperlipidemia, unspecified; E03.9 Hypothyroidism, unspecified; K57.90 Diverticulosis of intestine, part unspecified, without perforation or abscess without bleeding; Z87.310 Personal history of (healed) osteoporosis fracture
CPT/HCPCS: 36415; 71045; 71275; 80048; 80053; 82306; 83605; 83735; 83880; 84484; 85025; 85027; 85610; 85730; 86140; 87040; 93005; 94640; 96365; 96366; 96372; 96375; 96376; 99283; 99406; A9270-GY; G0378; G8978-GP-CJ; G8979-GP-CI; G8987-GO-CK; G8988-GO-CJ; J1644; J1885; J2270; J2405; J3475; Q9967

== ENCOUNTER → 2018-09-26 13:42 | Emergency (ER) | payer MEDICARE ==
[~2018-09-26 13:42] MED LIST: Iohexol 300* (CONTRAST) 10 ML SDV IV ONE; Magnesium Hydroxide LIQ* 30 ML UDC PO ONE; Polyethylene Glycol 3350 BTL* 238 GM BTL PO ONE
[2018-09-26 14:56] LABS: ABS Lymphocytes 0.7 10^3/ul (1.0-4.8); ABS Monocytes 0.2 10^3/ul (0-0.8); ABS Neutrophils 7.1 10^3/ul (1.5-7.7); Eosinophil % 0.1 %; Hematocrit 38 % (35-47); Hemoglobin 12.8 g/dL (12.0-16.0); Lymphocyte % 8.9 %; Mean Corpuscular HGB Conc 34 g/dL (31-36); Mean Corpuscular Hemoglobin 35 pg (27-31); Mean Corpuscular Volume 104 fL (80-97); Mean Platelet Volume 8.6 fL (7.4-10.4); Platelet Count 239 10^3/uL (150-450); Red Blood Count 3.63 10^6 /uL (3.70-4.87); Red Cell Distribution Width 13 % (10-15); White Blood Count 8.1 10^3/uL (3.5-10.8)
[2018-09-26 15:20] LABS: ALT 23 U/L (7-52); AST 18 U/L (13-39); Albumin 3.7 g/dL (3.2-5.2); Albumin/Globulin Ratio 1.4 (1-3); Alkaline Phosphatase 47 U/L (34-104); Anion Gap 6 mmol/L (2-11); BUN/Creatinine Ratio 17.7 (8-20); Blood Urea Nitrogen 14 mg/dL (6-24); C Reactive Protein 42.13 mg/L (<8.01); CO2 Carbon Dioxide 32 mmol/L (22-32); Calcium 8.9 mg/dL (8.6-10.3); Chloride 101 mmol/L (101-111); EGFR African American 83.9 (>60); EGFR Non-African American 69.3 (>60); Globulin 2.7 g/dL (2-4); Glucose 110 mg/dL (70-100); Potassium 4.1 mmol/L (3.5-5.0); Sodium 139 mmol/L (135-145); Total Protein 6.4 g/dL (6.4-8.9)
--- NOTE | 2018-09-26 16:01 | ED ---
Abdominal Pain/Female - HPI Summary HPI Summary: This pt is an 82 y/o female presenting to [facility] via EMS from home for abd pain and constipation. Pt reports constipation is chronic and has tried every single medication for it without relief. She states she can feel hard stool in her rectum. Pt has not been passing much gas. Her last bowel movement was last week. Pt notes she recently took 2 bottles of magnesium citrate without relief. She has also tried Miralax without relief. Recently pt has not been taking anything for her constipation. Pt denies any fever, chills, erythema of eyes, sore throat, chest pain, worsening or new SOB, cough, nausea, vomiting, dysuria , hematuria, myalgia, edema, rash, or dizziness. Pt takes oxycodone for her fractures. Additionally this morning she called her PCP for mouth thrush, she notes she has not been rinsing her mouth after her inhalers. She has seen [facility] Ignacio in [place]. Pt has hx of COPD and wears oxygen chronically. PMHx includes aortic aneurysm, appendectomy, hysterectomy, tubal ligation. Pt lives at home in [place] alone. - History of Current Complaint Chief Complaint: EDAbdPain Stated Complaint: ABD PAIN Time Seen by Provider: 09/26/18 14:13 Hx Obtained From: Patient Onset/Duration: Lasting Weeks, Still Present Timing: Weeks Severity Currently: Severe Pain Intensity: 8 Pain Scale Used: 0-10 Numeric Location: Diffuse Radiates: No Aggravating Factor(s): Nothing Alleviating Factor(s): Nothing Associated Signs and Symptoms: Positive: Constipation. Negative: Fever, Cough, Chest Pain, Nausea, Vomiting, Diarrhea Allergies/Adverse Reactions: Allergies Allergy/AdvReac Type Severity Reaction Status Date / Time Penicillins Allergy Hives Verified 09/26/18 13:58 Home Medications: Home Medications Atorvastatin* [Lipitor*] 10 mg PO DAILY 09/26/18 [History Confirmed 09/26/18] Budesonide/Formote 160/4.5(NF) [Symbicort 160/4.5 (NF)] 2 puff INH BID 09/26/18 [History Confirmed 09/26/18] Fluticasone/Umeclidin/Vilanter [Trelegy Ellipta 100-62.5-25] 1 puff INH DAILY [History Confirmed 09/26/18] Levothyroxine TAB* [Synthroid TAB*] 75 mcg PO DAILY 09/26/18 [History Confirmed 09/26/18] Linaclotide [Linzess] 72 mcg PO DAILY 09/26/18 [History Confirmed 09/26/18] Lisinopril TAB* [Prinivil TAB*] 10 mg PO DAILY 09/26/18 [History Confirmed 09/26] PMH/Surg Hx/FS Hx/Imm Hx Endocrine/Hematology History: Reports: Hx Thyroid Disease Denies: Hx Diabetes Cardiovascular History: Reports: Hx Aneurysm, Hx Hypercholesterolemia, Hx Hypertension Denies: Hx Congestive Heart Failure - ? 2000 per pt, no edema, denies s/s receiving visipaque, Hx Pacemaker/ICD Respiratory History: Reports: Hx Chronic Obstructive Pulmonary Disease (COPD), Other Respiratory Problems/Disorders - occassional,exertional sob Denies: Hx Asthma GI History: Denies: Other GI Disorders History: Denies: Hx Kidney Stones, Hx Renal Disease Musculoskeletal History: Reports: Hx Back Problems - compression fractures Sensory History: Reports: Hx Contacts or Glasses Denies: Hx Hearing Aid, Hx Hearing Problem, Other Sensory Impairments Opthamlomology History: Reports: Hx Contacts or Glasses Denies: Other Sensory Impairments Neurological History: Reports: Hx Dementia Psychiatric History: Reports: Hx Anxiety, Hx Panic Disorder - A LITTLE - Surgical History Surgical History: Yes Surgery Procedure, Year, and Place: APPY, HYSTERECTOMY, TUBAL LIGATION, LAP SANDHYA, EYELID PARTIAL REMOVAL, throat benign polyp, aortic aneurysm-CLEARED 1.5 PER [facility] SCANNED INTO OTHER OR PROCEDURES. HEMORROIDECTOMY-BILATERAL CATARACTS Infectious Disease History: No Infectious Disease History: Denies: Traveled Outside the [place] in Last 30 Days - Family History Known Family History: Negative: Cardiac Disease, Hypertension, Diabetes - Social History Alcohol Use: Rare Substance Use Type: Reports: None Hx Tobacco Use: Yes Smoking Status (MU): Heavy Every Day Tobacco Smoker Type: Cigarettes Length of Time of Smoking/Using Tobacco: 60 years Have You Smoked in the Last Year: Yes Review of Systems Negative: Fever, Chills Negative: Erythema Negative: Sore Throat Negative: Chest Pain Negative: Shortness Of Breath, Cough Gastrointestinal: Other - POSITIVE: constipation Positive: Abdominal Pain. Negative: Vomiting, Nausea Negative: dysuria, hematuria Negative: Myalgia, Edema Negative: Rash Neurological: Other - NEGATIVE: dizziness All Other Systems Reviewed And Are Negative: Yes Physical Exam - Summary Physical Exam Summary: Constitutional: Well-developed, Well-nourished, Alert. (-) Distressed Skin: Warm, Dry HENT: Normocephalic; Atraumatic Eyes: Conjunctiva normal Neck: Musculoskeletal ROM normal neck. (-) JVD, (-) Stridor, (-) Tracheal deviation Cardio: Rhythm regular, rate normal, Heart sounds normal; Intact distal pulses; The pedal pulses are 2+ and symmetric. Radial pulses are 2+ and symmetric. (-) Murmur Pulmonary/Chest wall: Effort normal. (-) Respiratory distress, (-) Wheezes, (-) Rales Abd: Soft, (-) Tenderness, (+) Distended abdomen, (-) Guarding, (-) Rebound. Positive bowel sounds. Musculoskeletal: (-) Edema Lymph: (-) Cervical adenopathy Neuro: Alert, Oriented x3 Psych: Mood and affect Normal Triage Information Reviewed: Yes Vital Signs On Initial Exam: Initial Vitals Temp Pulse Resp BP Pulse Ox 97.3 F 68 18 139/82 94 09/26/18 13:51 09/26/18 13:51 09/26/18 13:51 09/26/18 13:51 09/26/18 13:51 Vital Signs Reviewed: Yes Diagnostics - Vital Signs Vital Signs Temp Pulse Resp BP Pulse Ox 09/26/18 15:15 70 158/75 99 09/26/18 15:00 61 99 09/26/18 14:45 63 142/75 98 09/26/18 13:51 97.3 F 68 18 139/82 94 - Laboratory Lab Results: Lab Results 09/26/18 09/26/18 09/26/18 Range/Units 14:39 14:39 14:39 WBC 8.1 (3.5-10.8) 10^3/uL RBC 3.63 L (3.70-4.87) 10^6 /uL Hgb 12.8 (12.0-16.0) g/dL Hct 38 (35-47) % MCV 104 H (80-97) fL MCH 35 H (27-31) pg MCHC 34 (31-36) g/dL RDW 13 (10-15) % Plt Count 239 (150-450) 10^3/uL MPV 8.6 (7.4-10.4) fL Neut % (Auto) 87.6 % Lymph % (Auto) 8.9 % Levy % (Auto) 3.0 % Eos % (Auto) 0.1 % Baso % (Auto) 0.4 % Absolute Neuts (auto) 7.1 (1.5-7.7) 10^3/ul Absolute Lymphs (auto) 0.7 L (1.0-4.8) 10^3/ul Absolute Monos (auto) 0.2 (0-0.8) 10^3/ul Absolute Eos (auto) 0.0 (0-0.6) 10^3/ul Absolute Basos (auto) 0.0 (0-0.2) 10^3/ul Absolute Nucleated RBC 0.0 10^3/ul Nucleated RBC % 0.0 Sodium 139 (135-145) mmol/L Potassium 4.1 (3.5-5.0) mmol/L Chloride 101 (101-111) mmol/L Carbon Dioxide 32 (22-32) mmol/L Anion Gap 6 (2-11) mmol/L BUN 14 (6-24) mg/dL Creatinine 0.79 (0.51-0.95) mg/dL Est GFR ( Amer) 83.9 (>60) Est GFR (Non-Af Amer) 69.3 (>60) BUN/Creatinine Ratio 17.7 (8-20) Glucose 110 H (70-100) mg/dL Lactic Acid 1.0 (0.5-2.0) mmol/L Calcium 8.9 (8.6-10.3) mg/dL Total Bilirubin 0.30 (0.2-1.0) mg/dL AST 18 (13-39) U/L ALT 23 (7-52) U/L Alkaline Phosphatase 47 (34-104) U/L C-Reactive Protein 42.13 H (<8.01) mg/L Total Protein 6.4 (6.4-8.9) g/dL Albumin 3.7 (3.2-5.2) g/dL Globulin 2.7 (2-4) g/dL Albumin/Globulin Ratio 1.4 (1-3) Lipase < 10 L (11.0-82.0) U/L Result Diagrams: 09/26/18 14:39 09/26/18 14:39 Lab Statement: Any lab studies that have been ordered have been reviewed, and results considered in the medical decision making process. - Radiology Abdomen XR Radiology Interpretation Completed By: Radiologist Summary of Radiographic Findings: IMPRESSION: Chronic and postsurgical changes as described above without radiographically apparent signs of acute bowel pathology. Dr. Child has reviewed this report. - CT CT abdomen/pelvis CT Interpretation Completed By: Radiologist Summary of CT Findings: IMPRESSION: 1. There are air-fluid levels notes throughout much of the small bowel but there is no pathologic dilatation of the bowel, bowel wall thickening or other focal signs of acute abnormality. The CT appearance is most consistent with ileus. 2. Distal colonic diverticulosis without focal inflammatory change. 3. Extensive chronic, degenerative and iatrogenic findings described in the body the report. Dr. Child has reviewed this report. Re-Evaluation - Re-Evaluation First Eval Re-Evaluation Time: 19:05 Comment: I reviewed the results with the pt. I advised she decreases her pain medications to once to twice a day maximum and increase her water intake. Abdominal Pain Fem Course/Dx - Course Course Of Treatment: Pt is an 82 y/o female presenting to [facility] via EMS from home for abd pain and constipation. Pt reports constipation is chronic and has tried every single medication for it without relief. She states she can feel hard stool in her rectum. Pt has not been passing much gas. Her last bowel movement was last week. Pt notes she recently took 2 bottles of magnesium citrate without relief. She has also tried Miralax without relief. Recently pt has not been taking anything for her constipation. Abdomen XR shows chronic and postsurgical changes as described above without radiographically apparent signs of acute bowel pathology. Abdomen/Pelvis CT reveals 1. There are air- fluid levels notes throughout much of the small bowel but there is no pathologic dilatation of the bowel, bowel wall thickening or other focal signs of acute abnormality. The CT appearance is most consistent with ileus. 2. Distal colonic diverticulosis without focal inflammatory change. 3. Extensive chronic, degenerative and iatrogenic findings described in the body the report. UA is negative. I do not suspect obstruction. Her PCP should consider decreasing opiate intervals to treat constipation. Patient is recommended she decreases her pain medication to once to twice a day maximum and increase her water intake. She will be discharged home with follow up from her PCP in 2-3 days. She was given a prescription for milk of magnesia, miralax, and fleet enema. - Diagnoses Provider Diagnoses: Constipation Discharge - Sign-Out/Discharge Documenting (check all that apply): Patient Departure - Discharge home Patient Received Moderate/Deep Sedation with Procedure: No - Discharge Plan Condition: Stable Disposition: HOME Prescriptions: Magnesium Hydroxide LIQ* [Milk of Magnesia LIQ*] 30 ml PO Q6H PRN #1 btl PRN Reason: Constipation Polyethylene Glycol 3350* [Miralax*] 17 gm PO DAILY #14 packet Sodium Phosphate ADULT ENEMA* [Fleet Enema*] 1 bottle .SEE ORDER ONCE #1 btl Patient Education Materials: Constipation (ED) Referrals: Chuy Chappell MD [Primary Care Provider] - Additional Instructions: Recommend you DECREASE your pain medications to once to twice a day maximum. Increase your water intake. Follow up with your primary care provider in 2-3 days. RETURN TO THE EMERGENCY DEPARTMENT FOR CHANGING OR WORSENING SYMPTOMS. - Attestation Statements Document Initiated by Scribe: Yes Documenting Scribe: Babs June Provider For Whom Scribe is Documenting (Include Credential): Filiberto Child MD Scribe Attestation: Babs Azar, scribed for Filiberto Child MD on 09/26/18 at 1908. Status of Scribe Document: Ready
[2018-09-26 18:59] LABS: Urine Appearance Clear; Urine Bilirubin Negative (Negative); Urine Blood Negative (Negative); Urine Color Straw; Urine Glucose Negative (Negative); Urine Ketones Negative (Negative); Urine Nitrite Negative (Negative); Urine Protein Negative (Negative); Urine Specific Gravity 1.004 (1.010-1.030); Urine Urobilinogen Negative (Negative)
[2018-09-26 19:27] VITALS: BP 122/82
== END | disposition home or self-care (01) ==
LOC: ED 13:42
DX: K59.00 Constipation, unspecified (principal); K57.30 Diverticulosis of large intestine without perforation or abscess without bleeding; E07.9 Disorder of thyroid, unspecified; E78.00 Pure hypercholesterolemia, unspecified; I10 Essential (primary) hypertension; J44.9 Chronic obstructive pulmonary disease, unspecified; Z99.81 Dependence on supplemental oxygen; Z90.49 Acquired absence of other specified parts of digestive tract; Z90.710 Acquired absence of both cervix and uterus; Z90.89 Acquired absence of other organs; Z95.828 Presence of other vascular implants and grafts; Z88.0 Allergy status to penicillin; F17.210 Nicotine dependence, cigarettes, uncomplicated
CPT/HCPCS: 36415; 74018; 74177; 80053; 81003; 83605; 83690; 85025; 86140; 99283; A9270-GY; Q9967

== ENCOUNTER 2018-11-13 11:04 | Emergency (ER) | payer MEDICARE ==
--- OUTSIDE RECORDS SUMMARY | 2018-11-13 11:18 | XMS REPORT ---
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 Problem Unspecified urinary R32 Active 234569062 incontinence Problem Rash and other R21 Active 884041078 nonspecific skin eruption Problem Noninflammatory N90.9 Active 531217420 disorder of vulva and perineum, unspecified Problem Rectocele N81.6 Active 804959598 Problem Cystocele, lateral N81.12 Active 637880153 Problem Age-related M80.00XS Active 47381368 osteoporosis with current pathological fracture, unspecified site, sequela ALLERGIES Substance Reaction Event Type Date Status Sulfa Unknowm Drug Allergy Nov, Active Penicillin Hives Drug Allergy Nov, Active ENCOUNTERS Encounter Location Date Diagnosis [address] Nov, Prolapse of vaginal vault [facility] [address] [place] [address], after hysterectomy N99.3 [place] [id number] and Cystocele, lateral N81.12 [facility] [address] 13 Sep, 2018 OBGYN [place], [place] [id number] [address] Sep, Prolapse of vaginal vault [facility] [address] [place], after hysterectomy N99.3 [place] [id number] and Cystocele, lateral N81.12 [facility] 103 Sep, OBGYN [place], [place] [id number] [facility] 103 August, Prolapse of vaginal vault OBGYN [facility], after hysterectomy N99.3 ; [place] [id number] Unspecified urinary incontinence R32 ; Cystocele, lateral N81.12 and Rash and other nonspecific skin eruption R21 [facility] 103 August, OBGYN [place], [place] [id number] [address] Jul, Prolapse of vaginal vault [facility]BG[facility] Road [address] [place] [address], after hysterectomy N99.3 ; [place] [id number] Unspecified urinary incontinence R32 ; Cystocele, lateral N81.12 and Rash and other nonspecific skin eruption R21 [facility] 103 Jul, OBGYN [place] [id number] [facility] Jul, Prolapse of vaginal vault OBGYN Road [address] [place] [address], after hysterectomy N99.3 ; [place] [id number] Unspecified urinary incontinence R32 ; Cystocele, lateral N81.12 ; Rectocele N81.6 and Rash and other nonspecific skin eruption R21 [address] Jun, Prolapse of vaginal vault OBGYN Road [address] [place] [address], after hysterectomy N99.3 ; [place] [id number] Unspecified urinary incontinence R32 ; Cystocele, lateral N81.12 ; Rectocele N81.6 and Noninflammatory disorder of vulva and perineum, unspecified N90.9 [facility] 103 May, Unspecified urinary OBGYN [facility], incontinence R32 ; [place] [id number] Age-related osteoporosis with current pathological fracture, unspecified site, sequela M80.00XS ; Rectocele N81.6 ; Cystocele, lateral N81.12 ; Noninflammatory disorder of vulva and perineum, unspecified N90.9 and Prolapse of vaginal vault after hysterectomy N99.3 IMMUNIZATIONS No Known Immunizations SOCIAL HISTORY Never Assessed REASON FOR REFERRAL FUNCTIONAL STATUS PLAN OF CARE Activity Details Follow Up F/u PRN 3rd degree vag prolapse. Reason: VITAL SIGNS Height 58 in 2018-11-10 Weight 113 lbs 2018-11-10 BMI 23.61 kg/m2 2018-11-10 Blood pressure systolic 120 mm Hg 2018-11-10 Blood pressure diastolic 60 mm Hg 2018-11-10 MEDICATIONS Medication Instructions Dosage Frequency Start End Duration Status Date Date Prednisone Oral qd 1 tab 24h Active oxycodone/acetame 1-2 tabs Active nophen 10/325 mg cephalexin 500 mg orally every 12 1 cap(s) 12h 10 day(s) Active hours atorvastatin 10 orally once a day 1 tab(s) 24h Active mg triamcinolone applied topically 1 crow 12h 30 days Active topical 0.5% 2 times a day budesonide-formot inhaled 2 times a 2 puff(s) 12h Active allen 160 mcg-4.5 day mcg/inh alprazolam 0.25 orally 3 times a 1 tab(s) 8h Active mg day Albuterol Sulfate 1 tab (s) 12h Active 4 mg Estring 2 mg intravaginally 1 ea 90 day(s) Active every 3 months Oxygen 2.3 liters Active levothyroxine 75 orally once a day 1 tab(s) 24h Active mcg (0.075 mg) PROCEDURES No Known procedures RESULTS No Results REASON FOR VISIT Cytsocele f/u Insurance Providers [facility] Health Member Patient Patient Patient Patient Patient Subscriber Subscriber Subscriber Group Insurance Plan Plan Plan Plan ID Relationship Address Phone Name Date of ID Name Date of No Type Insurance Insurance Insurance Coverage to Subscriber Address Phone Name Dates [employer] [phone] [employer] self Rosalba [id number] [place] [phone] Cross/[place] Cross/Blue 0 Shield [id number] Shield MEDICAL (GENERAL) HISTORY Type Description Date Medical History Hyperlipidemia Medical History Thyrotoxicosis Medical History Hypothyroidism Medical History Major Depressive disorder Medical History Diverticulitis Medical History Radiculopathy ( Lumbar Region) Medical History Anxiety Disoder Medical History Essential Primary Hypertension Medical History Palpitations Medical History Chronic obstructive pulmonary disease Surgical History appendectomy Surgical History polypectomy Surgical History Hysterectomy Surgical History Gall bladder removal Surgical History stomach aorta aneurysm repair. Hospitalization History See Above Hospitalization History Childbirth
[2018-11-13 12:15] LABS: ABS Basophils 0.1 10^3/ul (0-0.2); ABS Eosinophils 0.1 10^3/ul (0-0.6); ABS Lymphocytes 1.2 10^3/ul (1.0-4.8); ABS Monocytes 0.5 10^3/ul (0-0.8); ABS Neutrophils 3.1 10^3/ul (1.5-7.7); Eosinophil % 1.8 %; Hematocrit 39 % (35-47); Hemoglobin 13.3 g/dL (12.0-16.0); Lymphocyte % 24.8 %; Mean Corpuscular HGB Conc 34 g/dL (31-36); Mean Corpuscular Hemoglobin 35 pg (27-31); Mean Corpuscular Volume 103 fL (80-97); Mean Platelet Volume 7.7 fL (7.4-10.4); Platelet Count 361 10^3/uL (150-450); Red Blood Count 3.78 10^6 /uL (3.70-4.87); Red Cell Distribution Width 13 % (10-15)
--- NOTE | 2018-11-13 12:22 | ED ---
Shortness of Breath - HPI Summary HPI Summary: Pt seen in waiting room at 12:00. This patient is a 83 year old F presenting to [facility] accompanied by grandson with a chief complaint of increasing SOB and generalized weakness over the past few days. Pt has had trouble ambulating, and is in pain due to stopping her oxycodone due to worry that it would interfere with her antibiotics. Pt had had cellulitis for months. She has been on multiple antibiotics. She was first on doxycycline for 7-10 days. Then used Bactrim, which she reports she was allergic to. Pt is currently on Clarithromycin 500 mg Q12 began on 11/08/18, and that Dr. Chappell wants her to be on it for 14 days. She also reports abdominal pain due to antibiotics. Dr. Chappell wanted her to come and see him last week but pt did not follow up. Pt has PHx of COPD, osteoporosis. Patient reports SOB , hot and cold chills since (11/08/18), leg pain, and back pain. Per grandson, Pt lives by herself, does not have aid currently, usually takes 3- 4 L O2 and smokes 5-8 cigarettes a day. Per triage, patient rates the pain 7/10 in severity. Initial Vital signs per triage: HR 81 bpm, BP 122/89, O2 sat 94% Home Medications Medication Instructions Recorded Confirmed Type Furosemide TAB* [Lasix TAB*] 20 mg PO DAILY 09/27/17 09/26/18 History ALPRAZolam TAB* [Xanax TAB*] 0.25 mg PO TID PRN 10/01/17 09/26/18 History Albuterol HFA INHALER* [Ventolin 2 puff INH Q6H PRN 12/27/17 09/26/18 History HFA Inhaler*] Alendronate (NF) [Fosamax (NF)] 70 mg PO WEEKLY 12/27/17 09/26/18 History Fluticasone NASAL SPRAY 50MCG* 2 spray BOTH NARES DAILY 12/27/17 09/26/18 History [Flonase NASAL SPRAY 50MCG*] Gabapentin CAP(*) [Neurontin 300 300 mg PO TID 12/27/17 09/26/18 History CAP(*)] oxyCODONE/Acetamin 10/325(NF) 1 tab PO Q4HR PRN 12/27/17 09/26/18 History [Percocet 10/325 (NF)] Potassium Chlor TAB* [Potassium 20 meq PO DAILY 03/19/18 09/26/18 History Chlor TAB 20 MEQ*] Acetaminophen TAB* [Tylenol TAB*] 650 mg PO Q6H PRN #90 tab 03/21/18 09/26/18 Rx Atorvastatin* [Lipitor*] 10 mg PO DAILY 09/26/18 09/26/18 History Budesonide/Formote 160/4.5(NF) 2 puff INH BID 09/26/18 09/26/18 History [Symbicort 160/4.5 (NF)] Fluticasone/Umeclidin/Vilanter 1 puff INH DAILY 09/26/18 09/26/18 History [Trelegy Ellipta 100-62.5-25] Levothyroxine TAB* [Synthroid TAB*] 75 mcg PO DAILY 09/26/18 09/26/18 History Linaclotide [Linzess] 72 mcg PO DAILY 09/26/18 09/26/18 History Lisinopril TAB* [Prinivil TAB*] 10 mg PO DAILY 09/26/18 09/26/18 History Magnesium Hydroxide LIQ* [Milk of 30 ml PO Q6H PRN #1 btl 09/26/18 Rx Magnesia LIQ*] Polyethylene Glycol 3350* 17 gm PO DAILY #14 packet 09/26/18 Rx [Miralax*] Sodium Phosphate ADULT ENEMA* 1 bottle .SEE ORDER ONCE #1 btl 09/26/18 Rx [Fleet Enema*] - History of Current Complaint Chief Complaint: EDAbdPain Time Seen by Provider: 11/13/18 11:56 Hx Obtained From: Patient, Family/[employer] [employer] - elza Barkley Onset/Duration: Lasting Days, Still Present Timing: Constant Current Severity: Moderate Dyspnea At: Exertion Aggravating Factors: Movement Alleviating Factors: Oxygen Associated Signs & Symptoms: Cough (Nonproductive), Chills - Allergy/Home Medications Allergies/Adverse Reactions: Allergies Allergy/AdvReac Type Severity Reaction Status Date / Time Penicillins Allergy Hives Verified 11/13/18 11:17 PMH/Surg Hx/FS Hx/Imm Hx Previously Healthy: No Endocrine/Hematology History: Reports: Hx Thyroid Disease Denies: Hx Diabetes Cardiovascular History: Reports: Hx Aneurysm, Hx Hypercholesterolemia, Hx Hypertension Denies: Hx Congestive Heart Failure - ? 2000 per pt, no edema, denies s/s receiving visipaque, Hx Pacemaker/ICD Respiratory History: Reports: Hx Chronic Obstructive Pulmonary Disease (COPD), Other Respiratory Problems/Disorders Denies: Hx Asthma GI History: Denies: Other GI Disorders History: Denies: Hx Kidney Stones, Hx Renal Disease Musculoskeletal History: Reports: Hx Back Problems - compression fractures Sensory History: Reports: Hx Contacts or Glasses Denies: Hx Hearing Aid, Hx Hearing Problem, Other Sensory Impairments Opthamlomology History: Reports: Hx Contacts or Glasses Denies: Other Sensory Impairments Neurological History: Reports: Hx Dementia Psychiatric History: Reports: Hx Anxiety, Hx Panic Disorder - Surgical History Surgery Procedure, Year, and Place: APPY, HYSTERECTOMY, TUBAL LIGATION, LAP SANDHYA, EYELID PARTIAL REMOVAL, throat benign polyp, aortic aneurysm-CLEARED 1.5 PER [facility] SCANNED INTO OTHER OR PROCEDURES. HEMORROIDECTOMY-BILATERAL CATARACTS Infectious Disease History: No Infectious Disease History: Denies: Traveled Outside the [place] in Last 30 Days - Family History Known Family History: Negative: Cardiac Disease, Hypertension, Diabetes - Social History Lives: Alone Alcohol Use: Rare Substance Use Type: Reports: None Hx Tobacco Use: Yes Smoking Status (MU): Heavy Every Day Tobacco Smoker Type: Cigarettes Length of Time of Smoking/Using Tobacco: 60 years Have You Smoked in the Last Year: Yes Review of Systems Positive: Chills Eyes: Negative ENT: Negative Negative: Chest Pain Positive: Shortness Of Breath Positive: Abdominal Pain Positive: no symptoms reported Positive: Other - pos - back pain, leg pain Positive: Other - redness bilateral lower legs from toes to knees Positive: Weakness All Other Systems Reviewed And Are Negative: Yes Physical Exam - Summary Physical Exam Summary: Appearance: Ill-appearing, moderate pain distress, well-nourished Skin: Warm, color reflects adequate perfusion, dry, Left leg medial calf to toes , anterior and posterior calf, upper calf redness and silver scaling and rest is diffuse redness; 7 macular papular areas lateral to medial calf redness 0.5 cm each Head: Normal Head/Face inspection, atraumatic Eyes: Conjunctiva clear ENT: Normal inspection Neck: Supple, no nodes, no JVD Respiratory: Lungs course rhonchi, diminished throughout, no respiratory distress Cardio: RRR, No murmur, pulses normal, brisk capillary refill Abdomen: Soft, nontender Bowel sounds: Present Musculoskeletal: Strength Intact/ROM intact, no calf tenderness, no edema, leg redness as above . Psychological: Normal Neuro: Alert, muscle tone normal, no focal deficit Triage Information Reviewed: Yes Vital Signs On Initial Exam: Initial Vitals Temp Pulse Resp BP Pulse Ox 99.6 F 81 18 122/89 94 11/13/18 11:09 11/13/18 11:09 11/13/18 11:09 11/13/18 11:09 11/13/18 11:09 Vital Signs Reviewed: Yes Diagnostics - Vital Signs Vital Signs Temp Pulse Resp BP Pulse Ox 11/13/18 11:09 99.6 F 81 18 122/9 94 - Laboratory Result Diagrams: 11/13/18 12:00 11/13/18 12:00 Lab Statement: Any lab studies that have been ordered have been reviewed, and results considered in the medical decision making process. - Radiology CXR Radiology Interpretation Completed By: Radiologist Summary of Radiographic Findings: CXR reveals, per radiologist, IMPRESSION: 1. No acute cardiopulmonary process by radiograph. 2. Old right-sided rib fractures. ED physician has reviewed this radiology report. Re-Evaluation - Re-Evaluation First Eval Re-Evaluation Time: 13:25 Change: Unchanged Comment: Daughter is with pt. Daughter is concerned about worsening cellulitis since Clarithromycin. Pt did not tolerate doxycycline, and bactrim due to GI issues Third Eval Re-Evaluation Time: 15:27 Change: Unchanged Comment: Discussed results and plan of care with pt. Lengthy discussion with daughter and pt. Will DC clarithromycin due to cellulitis not improving on this med and resume doxycycline 200mg bid which is the med that helped diminish symptoms earlier in the course of the illness. Course/Dx - Course Course Of Treatment: 83 yo F with hx cellulitis for weeks, on multiple antibiotics presents with continued leg symptoms, in addition to weakness and chronic SOB in part due to her COPD. Physical exam findings show left leg medial calf to toes, anterior and posterior calf, upper calf, redness and silver scaling and rest the rest is diffuse redness; 7 macular papular areas lateral to medial calf redness 0.5 cm each, Lungs course rhonchi. Pt medications reviewed this visit. Nurses notes reviewed. Allergies noted. CXR reveals, per radiologist, IMPRESSION: 1. No acute cardiopulmonary process by radiograph. 2. Old right-sided rib fractures. Blood work obtained showing normal WBC count, Carbon Dioxide is 36, no CO2 retention or hypoxia on 4L NC based on ABG. UA obtained. Urine Protein is 1+, Ur Leukocyte Esterase is Trace , Urine WBC is 2+, Urine RBC is 1+, Ur Squamous Epith Cells are present. In the ED course the patient was given oxycodone 2 tab PO. Patient will be discharged with follow up from Dr. Chappell. The patient is agreeable with this plan. - Diagnoses Differential Diagnosis/HQI/PQRI: Positive: Bronchitis, CHF, COPD Exacerbation, DE, Pneumonia, Pulmonary Embolism Provider Diagnoses: COPD (chronic obstructive pulmonary disease), Chronic pain, Bilateral lower leg cellulitis, Generalized weakness Discharge ED - Sign-Out/Discharge Documenting (check all that apply): Patient Departure - Discharge home with daughter Patient Received Moderate/Deep Sedation with Procedure: No - Discharge Plan Condition: Stable Disposition: HOME Prescriptions: DOXYcycline CAP(*) [DOXYcycline 100MG CAP(*)] 100 mg PO BID #20 cap Patient Education Materials: Cellulitis (ED), COPD (Chronic Obstructive Pulmonary Disease) (ED) Referrals: Chuy Chappell MD [Primary Care Provider] - (as scheduled on 11/17/18) Additional Instructions: Your lab tests were unremarkable today. You had no signs of sepsis. Your blood gas test showed that 4L of oxygen is a good level for your oxygen. Bring these papers to Dr. Chappell. Stop your clarithromycin. Start doxycyline tomorrow morning. We have advised you to take the doxycycline after a full meal. We have also advised you to take pain medication on a regular schedule instead of waiting until you feel pain. You should definitely take the oxycodone before you go to bed. You may have a urinary tract infection. We will contact you if the doxycycline will not treat that. Keep your scheduled appointment with Dr. Chapepll this . Your daughter was with you when we talked about these discharge instructions, so she will help remind you of what we said. Return to the ER if you have new or worsening symptoms. - Billing Disposition and Condition Condition: STABLE Disposition: Home - Attestation Statements Document Initiated by Scribe: Yes Documenting Scribe: Maisha Merritt Provider For Whom Scribe is Documenting (Include Credential): Dr. Alyson Allred MD Scribe Attestation: Maisha Azar scribed for Dr. Alyson Allred MD on 12/06/18 at 0033. Scribe Documentation Reviewed: Yes Provider Attestation: The documentation as recorded by the faithibe, Maisha Merritt accurately reflects the service I personally performed and the decisions made by me, Dr. Alyson Allred MD Status of Scribe Document: Viewed
[2018-11-13 12:32] LABS: ALT 34 U/L (7-52); AST 32 U/L (13-39); Albumin 4.3 g/dL (3.2-5.2); Albumin/Globulin Ratio 1.4 (1-3); Alkaline Phosphatase 73 U/L (34-104); Anion Gap 4 mmol/L (2-11); Blood Urea Nitrogen 9 mg/dL (6-24); C Reactive Protein < 1.00 mg/L (<8.01); CO2 Carbon Dioxide 36 mmol/L (22-32); Calcium 9.5 mg/dL (8.6-10.3); Chloride 100 mmol/L (101-111); EGFR African American 80.2 (>60); EGFR Non-African American 66.3 (>60); Glucose 95 mg/dL (70-100); Potassium 3.5 mmol/L (3.5-5.0); Sodium 140 mmol/L (135-145); Total Protein 7.3 g/dL (6.4-8.9)
[2018-11-13] MEDS ORDERED: oxyCODONE/Acetamin 5/325 MG* TAB PO ONE (13:19)
[2018-11-13 13:31] LABS: Amylase 22 U/L (29-103)
[2018-11-13 14:39] LABS: Urine Appearance Turbid; Urine Bacteria Absent (Absent); Urine Bilirubin Negative (Negative); Urine Blood Negative (Negative); Urine Color Yellow; Urine Glucose Negative (Negative); Urine Ketones Negative (Negative); Urine Nitrite Negative (Negative); Urine Protein 1+(30 mg/dL) (Negative); Urine Red Blood Cell 1+(3-5/hpf) (Absent); Urine Specific Gravity 1.011 (1.010-1.030); Urine Squamous Epithelial Cell Present (Absent); Urine Urobilinogen Negative (Negative); Urine White Blood Cell 2+(11-20/hpf) (Absent)
[2018-11-13 15:34] VITALS: BP 137/75
== END 2018-11-13 16:07 | disposition home or self-care (01) ==
LOC: ED 11:04
DX: J44.9 Chronic obstructive pulmonary disease, unspecified (principal); L03.116 Cellulitis of left lower limb; R53.1 Weakness; G89.29 Other chronic pain; E07.9 Disorder of thyroid, unspecified; E78.00 Pure hypercholesterolemia, unspecified; I10 Essential (primary) hypertension; F17.210 Nicotine dependence, cigarettes, uncomplicated; Z99.81 Dependence on supplemental oxygen; Z79.891 Long term (current) use of opiate analgesic; Z79.899 Other long term (current) drug therapy; Z88.0 Allergy status to penicillin
CPT/HCPCS: 36415; 71046; 80053; 81003; 81015; 82150; 82803; 83605; 83690; 83880; 84484; 85025; 86140; 87040; 87086; 99284; A9270-GY